=== PATIENT | male | born 1935 | race Caucasian/White ===

== ENCOUNTER 2016-12-05 10:20 | Inpatient (IN) ==
[2016-12-05] MEDS ORDERED: Ipratropium/Albuterol Neb 3 ML IH ONE (10:33)
--- NOTE | 2016-12-05 10:39 | Emergency Department Note ---
Disposition Clinical Impression: Failure of outpatient treatment A-fib Qualifiers: Atrial fibrillation type: unspecified Qualified Code(s): I48.91 - Unspecified atrial fibrillation Pneumonia Qualifiers: Pneumonia type: due to unspecified organism Laterality: bilateral Lung location : lower lobe of lung Qualified Code(s): J18.9 - Pneumonia, unspecified organism Dyspnea Qualifiers: Dyspnea type: unspecified Qualified Code(s): R06.00 - Dyspnea, unspecified Disposition: Admitted As Inpatient Condition: Fair Referrals: El,Moustapha Zuluaga MD [Primary Care Provider] - Forms: ED Satisfaction Letter Time of Disposition: 12:38 SOB HPI - General Chief Complaint: ED Shortness of Breath/Dyspnea Stated Complaint: Pneumonia, sent by Dr Gallegos Time Seen by Provider: 12/05/16 10:33 Source: patient Limitations: no limitations Nursing Notes Reviewed: Yes Vital Signs Reviewed: Yes - History of Present Illness 81-year-old male who comes in with increasing cough and congestion. The patient was treated with antibiotics by Dr. Gallegos without improvement. Patient states this is third visit for this. I did speak to Dr. Gallegos prior to arrival descending him in because of worsening symptoms. Her Gallegos indicated the patient may need admission however the patient states he is not being admitted. Pt Subjective Complaint: shortness of breath, cough Onset (ago): day(s) Context: recent illness Severity: moderate Consistency/Duration: constant Improves with: nothing Worsens with: nothing Known history of: congestive heart failure Associated symptoms: Denies: chest pain Treatment prior to arrival: other (Antibiotics) Cough Description: Involuntary Cough Frequency: Intermittent - Related Data Home Medications Medication Instructions Recorded Confirmed Aspirin 325 mg PO DAILY 02/29/16 12/05/16 Atenolol [Tenormin] 25 mg PO DAILY 02/29/16 12/05/16 Atenolol [Tenormin] 50 mg PO DAILY MDD taking with 25 02/29/16 12/05/16 mg Atorvastatin [Lipitor] 40 mg PO DAILY 02/29/16 12/05/16 Ferrous Sulfate 325 mg PO DAILY 02/29/16 12/05/16 Finasteride [Proscar] 5 mg PO DAILY 02/29/16 12/05/16 Glucosamine HCl/Chondr Lee A Na 1 tab PO BID 02/29/16 12/05/16 [[facility] Glucosamine-Chondr Tablet] Isosorbide MONOnitrate [Isosorbide 120 mg PO DAILY 02/29/16 12/05/16 Mononitrate ER] Levothyroxine [Synthroid] 25 mcg PO DAILY 02/29/16 12/05/16 Metformin HCl [Glucophage] 1,000 mg PO BID 02/29/16 12/05/16 Nitroglycerin [Nitrostat] 0.4 mg SL AD PRN 02/29/16 12/05/16 [place]-3/Dha/Epa/Fish Oil [[facility] Fish 1,000 mg PO BID 02/29/16 12/05/16 Oil 1,000 mg Softgel] Tamsulosin [Flomax] 0.4 mg PO DAILY 02/29/16 12/05/16 Previous Rx's Medication Instructions Recorded Lansoprazole [Prevacid] 30 mg GTUBE QAM capsule. 02/29/16 Allergies Allergy/AdvReac Type Severity Reaction Status Date / Time No Known Allergies Allergy Verified 12/05/16 13:00 Constitutional: Denies: fever, chills, weakness, weight change Eyes: Denies: eye pain, eye discharge, vision change ENT ED: Denies: ear pain, throat pain, dental pain, hearing loss, epistaxis, congestion, dysphagia Cardiovascular: Reports: dyspnea on exertion. Denies: chest pain, palpitations , edema, syncope Respiratory: Reports: cough, dyspnea, wheezes. Denies: hemoptysis, stridor Gastrointestinal: Denies: abdominal pain, nausea, vomiting, diarrhea, constipation, hematemesis, melena, hematochezia Genitourinary: Denies: urgency, dysuria, frequency, hematuria Musculoskeletal: Denies: back pain, neck pain, arthralgia, myalgia Integumentary: Denies: rash, abrasion, lesions Neurological: Denies: headache, weakness, numbness, paresthesias, confusion, abnormal gait, vertigo Psychiatric: Denies: anxiety, depression, suicidal thoughts, homicidal thoughts , auditory hallucinations, visual hallucinations Endocrine: Denies: fatigue Hematological/Lymphatic: Denies: easy bleeding, easy bruising Allergic/Immunologic: Denies: facial swelling, urticaria Past Medical History - Past Medical History Medical history: Reports: cancer, coronary artery disease, diabetes, GERD, hyperlipidemia, hypertension, TIA, other Surgical history: Reports: cholecystectomy, coronary bypass (CABG) Psychiatric history: Reports: no psych history - Social History Smoking Status: Former smoker Smokeless Tobacco Status: No Alcohol use: Reports: none Drug use: Reports: none Physical Exam - General Limitations: no limitations General appearance: alert - Head Head exam: atraumatic, normocephalic, normal inspection - Eye Eye exam: Present: normal appearance, PERRL, EOMI - ENT ENT exam: normal exam, normal oropharynx, mucous membranes moist - Neck Neck exam: Present: normal inspection, full ROM, trachea midline - Chest Chest inspection: Present: normal inspection, symmetric chest wall rise - Respiratory Respiratory exam: Present: wheezes - Cardiovascular Cardiovascular exam: Present: regular rate, normal rhythm, normal heart sounds - Abdominal Exam Abdominal exam: Present: soft, Non-Tender. Absent: tenderness, distention, guarding, rebound, rigidity - Extremities Exam Extremities exam: Present: normal inspection, full ROM. Absent: tenderness, pedal edema - Expanded Lower Extremity Exam Neurovascular/Tendon exam: Absent: motor deficit, sensory deficit, tendon deficit Gait: observed and normal - Back Exam Back exam: Present: normal inspection, full ROM. Absent: tenderness - Neurological Exam Neurological exam: Present: alert, oriented X3 - Psychiatric Psychiatric exam: Present: normal affect, normal mood - Skin Skin exam: Present: warm, dry, intact, normal color Course - Reevaluation(s) Reevaluation #1: 81-year-old comes in complaining of shortness of breath cough. Has been seen by his family doctor 3 times treated with Zithromax without improvement. Today's chest x-ray shows atelectasis versus failure versus pneumonia. This likely represents some CHF. We are going to go ahead and admit. Time: 13:01 - Consultations Consultation #1: Discussed with Dr. Constantino, admit. Time: 12:59 Vital Signs Temperature 97.9 F 12/05/16 10:27 Pulse Rate 83 12/05/16 10:27 Respiratory Rate 20 12/05/16 10:27 Blood Pressure 156/77 12/05/16 10:27 O2 Sat by Pulse Oximetry 96 12/05/16 10:27 Temperature 97.9 F 12/05/16 10:27 Pulse Rate 82 12/05/16 12:35 Respiratory Rate 18 12/05/16 12:35 Blood Pressure 151/81 12/05/16 12:35 O2 Sat by Pulse Oximetry 93 L 12/05/16 12:35 Oxygen Delivery Oxygen Delivery Room Air Shortness of Breath/Dyspnea - Lab Data Lab results reviewed: Yes I reviewed the patient's lab results. Result diagrams: 12/05/16 10:56 12/05/16 10:56 Lab Results 12/05/16 12/05/16 12/05/16 Range/Units 10:56 10:56 10:56 WBC 6.9 (4.3-11.1) K/mcL RBC 4.25 (4.19-5.50) M/mcL Hgb 12.9 (12.9-16.9) g/dL Hct 37.3 L (37.5-50.1) % MCV 87.8 (83.0-100.0) fL MCH 30.4 (28.0-33.3) pg MCHC 34.6 (31.6-35.5) g/dL RDW 13.3 (11.5-14.5) % Plt Count 147 (140-400) K/mcL MPV 10.3 (9.4-12.4) fL Immature Gran % 1.4 (0-4) % Seg Neutrophils % 66.0 % Lymphocytes % 21.6 % Monocytes % 9.6 % Eosinophils % 1.0 % Basophils % 0.4 % Neutrophils # 4.6 (1.6-8.9) K/mcL Lymphocytes # 1.5 (0.6-4.6) K/mcL Monocytes # 0.7 (0.0-1.3) K/mcL Eosinophils # 0.1 (0.0-0.6) K/mcL Basophils # 0.0 (0.0-0.2) K/mcL PT 13.3 H (9.4-12.1) Seconds INR 1.2 APTT 24.3 L (26.0-36.0) Seconds Sodium 139 (136-145) mEq/L Potassium 4.2 (3.5-4.5) mEq/L Chloride 105 (98-109) mEq/L Carbon Dioxide 21 (19-29) mEq/L BUN 16 (8-26) mg/dL Creatinine 1.06 (0.72-1.25) mg/dL Est GFR ( Amer) > 60 (> 60) Est GFR (Non-Af Amer) > 60 (> 60) BUN/Creatinine Ratio 15 (6-26) Glucose 208 H (70-99) mg/dL Calculated Osmolality 295 (280-300) Lactic Acid (0.5-2.2) mmol/L Calcium 9.4 (8.6-10.8) mg/dL Troponin I (0-0.03) ng/mL B-Natriuretic Peptide (0-100) pg/mL 12/05/16 12/05/16 12/05/16 Range/Units 10:56 10:56 10:56 WBC (4.3-11.1) K/mcL RBC (4.19-5.50) M/mcL Hgb (12.9-16.9) g/dL Hct (37.5-50.1) % MCV (83.0-100.0) fL MCH (28.0-33.3) pg MCHC (31.6-35.5) g/dL RDW (11.5-14.5) % Plt Count (140-400) K/mcL MPV (9.4-12.4) fL Immature Gran % (0-4) % Seg Neutrophils % % Lymphocytes % % Monocytes % % Eosinophils % % Basophils % % Neutrophils # (1.6-8.9) K/mcL Lymphocytes # (0.6-4.6) K/mcL Monocytes # (0.0-1.3) K/mcL Eosinophils # (0.0-0.6) K/mcL Basophils # (0.0-0.2) K/mcL PT (9.4-12.1) Seconds INR APTT (26.0-36.0) Seconds Sodium (136-145) mEq/L Potassium (3.5-4.5) mEq/L Chloride (98-109) mEq/L Carbon Dioxide (19-29) mEq/L BUN (8-26) mg/dL Creatinine (0.72-1.25) mg/dL Est GFR ( Amer) (> 60) Est GFR (Non-Af Amer) (> 60) BUN/Creatinine Ratio (6-26) Glucose (70-99) mg/dL Calculated Osmolality (280-300) Lactic Acid 1.0 (0.5-2.2) mmol/L Calcium (8.6-10.8) mg/dL Troponin I 0.01 (0-0.03) ng/mL B-Natriuretic Peptide 137 H (0-100) pg/mL - Radiology Data Radiology results reviewed: Yes I reviewed the patient's radiology results. Chest X-Ray 12/05/16 10:33 IMPRESSION: Patchy opacities in lung bases bilaterally, which could reflect atelectasis, resolving or early pneumonia. Recommend a short-term follow-up to ensure resolution. D/ / Jo Whaley MD / Jo Whaley MD Interpreting Provider: Jo Whaley MD - EKG Data EKG attestation: Yes I reviewed and interpreted this EKG. Rate: Reports: normal Rhythm: Reports: A.Fib Interpretation: Reports: other (New A. fib)
[2016-12-05 11:05] LABS: Basophils % 0.4 %; Eosinophils # 0.1 K/mcL (0.0-0.6); Hematocrit 37.3 % (37.5-50.1); Hemoglobin 12.9 g/dL (12.9-16.9); Immature Granulocytes % 1.4 % (0-4); Lymphocytes # 1.5 K/mcL (0.6-4.6); Lymphocytes % 21.6 %; Mean Corpuscular HGB Conc 34.6 g/dL (31.6-35.5); Mean Corpuscular Hemoglobin 30.4 pg (28.0-33.3); Mean Corpuscular Volume 87.8 fL (83.0-100.0); Mean Platelet Volume 10.3 fL (9.4-12.4); Monocytes # 0.7 K/mcL (0.0-1.3); Monocytes % 9.6 %; Neutrophils # 4.6 K/mcL (1.6-8.9); Platelet Count 147 K/mcL (140-400); Red Blood Count 4.25 M/mcL (4.19-5.50); Red Cell Distribution Width 13.3 % (11.5-14.5)
[2016-12-05 11:09] LABS: INR 1.2; Prothrombin Time 13.3 Seconds (9.4-12.1)
[2016-12-05 11:12] LABS: Activated Partial Thrombo Time 24.3 Seconds (26.0-36.0)
[2016-12-05 11:34] LABS: BUN/Creatinine Ratio 15 (6-26); Blood Urea Nitrogen 16 mg/dL (8-26); Calcium 9.4 mg/dL (8.6-10.8); Carbon Dioxide 21 mEq/L (19-29); Chloride 105 mEq/L (98-109); Glucose 208 mg/dL (70-99); Osmolality,Calculated 295 (280-300); Potassium 4.2 mEq/L (3.5-4.5); Sodium 139 mEq/L (136-145); eGFR For African Americans > 60 (> 60); eGFR For Non-African Americans > 60 (> 60)
[2016-12-05] MEDS ORDERED: Levofloxacin 750 MG/150 ML 750 MG/150 ML BAG IVPB ONE (12:32)
[2016-12-05] MEDS ORDERED: Ibuprofen 400 MG TABLET PO PRN (13:31)
[2016-12-05] MEDS ORDERED: Naloxone 0.4 MG/ML INJ IVP PRN (13:31)
[2016-12-05] MEDS ORDERED: D5% in Water 1,000 ML IV PRN (13:35)
[2016-12-05] MEDS ORDERED: Nitroglycerin 0.4 MG TAB.SUBL SL PRN (13:35)
[2016-12-05] MEDS ORDERED: *HR* Dextrose 50 % in Water (Syg) 50 ML SYRINGE IVP PRN (13:35)
[2016-12-05] MEDS ORDERED: Dextrose Gel 15 GM PO PRN ×2 (13:35)
--- NOTE | 2016-12-05 13:56 | Internal Med History&Physical ---
Date of Encounter: 12/05/16 Time of Encounter: 13:48 Assessment and Plan (1) Pneumonia Current visit: Yes Status: Acute Patient with productive cough and shortness of breath, worse at night. He reports he's had three rounds of antibiotics through his PCP without relief of his symptoms. CXR showed Patchy opacities in lung bases bilaterally. Chest CT shows multiple new patchy infiltrates within both lower lobes and to lesser extent within both upper lobes, most likely represent either multifocal pneumonia or inflammatory process. Levaquin IVPB initiated by ED. Continue Levaquin. Duoneb treatments QIDR. Qualifiers: Pneumonia type: due to unspecified organism Laterality: bilateral Lung location: lower lobe of lung Qualified Code(s): J18.9 - Pneumonia, unspecified organism (2) A-fib Current visit: Yes Status: Acute Patient's EKG showed Atrial fibrillation. 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 Review of records shows Holter monitor from 12/2015 which showed primarily sinus rhythm with some PVCs and atrial ectopy, but no atrial fibrillation. Rate is controlled in the 80s, patient is on atenolol already. Weight based Lovenox SQ BID. Consult to Cardiology Qualifiers: Atrial fibrillation type: paroxysmal Qualified Code(s): I48.0 - Paroxysmal atrial fibrillation (3) Congestive heart failure Current visit: Yes Status: Acute Differential for patient's cough and dyspnea includes new Congestive heart failure given his new Atrial fibrillation. BNP elevated at 137, with no baseline for comparison. CT chest ordered to further clarify whether patient has pulmonary vascular congestion, pulmonary edema vs. pneumonia. No recent echocardiogram on record. Plan for echocardiogram tomorrow. Qualifiers: Congestive heart failure type: unspecified congestive heart failure type Congestive heart failure chronicity: unspecified congestive heart failure chronicity Qualified Code(s): I50.9 - Heart failure, unspecified (4) DVT prophylaxis Current visit: Yes Status: Acute Encourage ambulation anti-embolic stockings Weight-based lovenox ordered for new Afib. Internal Medicine - H&P: HPI Chief complaint: shortness of breath Admitted From: Emergency Dept Plans for Post Hospital Care: Home History of present illness: Mr. 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 He reports he has had a cough since October and has had 3 rounds of antibiotics through his PCP without resolution of his symptoms. He reports his cough is productive of yellow sputum, is worse over night, with shortness of breath that is also worse overnight. It is accompanied by nasal congestion and wheezing, as well as chills and sweats on and off. He denies any chest pain, palpitations, pain with breathing, headaches, lower extremity swelling, nausea, vomiting or abdominal pain. Evaluation in the ED was significant for EKG which showed atrial fibrillation, CXR which showed patchy opacities in lung bases bilaterally, elevated BNP to 137. Troponin was negative at 0.01, WBC count was normal at 6.9. Patient's heart rate was in the 80s-low 90s, he was afebrile with temperature of 97.9. On exam, patient is alert and oriented, in no distress. Lungs have faint bilateral expiratory wheezes, Heart has irrelular rhythm with drew. Past Med Surg Social Fam HX - Past Medical History Medical history: cancer (colon cancer 2006), coronary artery disease, diabetes, GERD, hyperlipidemia, hypertension, TIA, other (WPW) Psychiatric history: no psych history - Past Surgical History Surgical History: cancer surgery (partial colectomy), cholecystectomy, coronary bypass (CABG), orthopedic, other (neck fusion) - Social History Smoking Status: Former smoker Smokeless Tobacco Status: No Alcohol use: none Drug use: none - Family History Mother Living Status: Hx Family Endocrine Disorder: Yes (diabetes) Father Living Status: Hx Family Cardiac Disorders: Yes Hx Family Endocrine Disorder: Yes (diabetes) Internal Medicine - H&P: Meds Aspirin 325 mg PO DAILY 02/29/16 [History] Atenolol [Tenormin] 25 mg PO DAILY 02/29/16 [History] Atenolol [Tenormin] 50 mg PO DAILY MDD taking with 25 mg 02/29/16 [History] Atorvastatin [Lipitor] 40 mg PO DAILY 02/29/16 [History] Ferrous Sulfate 325 mg PO DAILY 02/29/16 [History] Finasteride [Proscar] 5 mg PO DAILY 02/29/16 [History] Glucosamine HCl/Chondr Lee A Na [[facility] Glucosamine-Chondr Tablet] 1 tab PO BID 01/11 [History] Isosorbide MONOnitrate [Isosorbide Mononitrate ER] 120 mg PO DAILY 02/29/16 [ History] Lansoprazole [Prevacid] 30 mg GTUBE QAM capsule. 02/29/16 [Rx] Levothyroxine [Synthroid] 25 mcg PO DAILY 02/29/16 [History] Metformin HCl [Glucophage] 1,000 mg PO BID 02/29/16 [History] Nitroglycerin [Nitrostat] 0.4 mg SL AD PRN 02/29/16 [History] [place]-3/Dha/Epa/Fish Oil [[facility] Fish Oil 1,000 mg Softgel] 1,000 mg PO BID [History] Tamsulosin [Flomax] 0.4 mg PO DAILY 02/29/16 [History] Allergies No Known Allergies Allergy (Verified 12/05/16 13:00) All Systems PM: A 10-system review of systems was performed and is negative for pertinent findings except as documented above in the HPI. - Constitutional Constitutional: chills, night sweats, no fever(s) - EENT Eyes: no change in vision, no discharge, no pain, no photophobia Ears: no ear discharge, no ear pain, no tinnitus Nose, mouth and throat: no dysphagia, no nasal discharge, no neck pain, no sore throat - Cardiovascular Cardiovascular ROS IM: dyspnea, paroxysmal nocturnal dyspnea, no chest pain, no diaphoresis, no lightheadedness, no palpitations, no syncope - Respiratory Respiratory: cough, dyspnea, wheezing, chest congestion, change in phlegm color , no pain on inspiration, no excessive phlegm production, no pain with cough - Gastrointestinal Gastrointestinal: no abdominal pain, no diarrhea, no hematemesis, no hematochezia, no melena, no nausea, no vomiting - Musculoskeletal Musculoskeletal ROS IM: numbness (chronic in bilateral feet), tingling (chronic in bilateral feet) - Integumentary Integumentary IM: no rash, no unusual bruising - Neurological Neurological ROS: numbness (chronic in bilateral feet), tingling (chronic bilateral feet), no confusion, no convulsions, no focal weakness, no tremor(s) - Hematologic/Lymphatic Hematologic/Lymphatic: no easy bruising - Constitutional Vitals: Temp Pulse Resp BP Pulse Ox 97.9 F 82 18 151/81 93 L 12/05/16 10:27 12/05/16 12:35 12/05/16 12:35 12/05/16 12:35 12/05/16 12:35 General appearance: Present: A&O X 3, pleasant, obese, answers questions appropriately - Head Head exam: Present: atraumatic, normocephalic - Eye Eye exam: Present: PERRL, conjuntiva pink, sclera anicteric Pupils: Present: PERRL - Neck Neck exam general surgery: Present: supple, trachea midline. Absent: lymphadenopathy - Respiratory Respiratory exam: Present: wheezes (bilateral expiratory). Absent: accessory muscle use, rales, rhonchi - Cardiovascular Cardiovascular exam: Present: gallop, irregular rhythm, +S1, +S2. Absent: diastolic murmur, rubs, systolic murmur - GI/Abdominal GI/Abdominal exam: Present: normal bowel sounds, soft, no peritoneal signs. Absent: distended, tenderness - Extremities Exam Extremities exam: Present: warm, radial pulses palpable and symetrical. Absent : calf tenderness, cyanotic, pedal edema - Neurological Exam Neurological exam: Present: CN II-XII intact, oriented X3, no focal deficits. Absent: facial droop, speech deficit - Skin Skin exam: Present: dry, intact Internal Med - H&P Results - Labs CBC & Chem 7: 12/05/16 10:56 12/05/16 10:56 Labs: Short CBC 12/05/16 Range/Units 10:56 WBC 6.9 (4.3-11.1) K/mcL Hgb 12.9 (12.9-16.9) g/dL Hct 37.3 L (37.5-50.1) % Plt Count 147 (140-400) K/mcL Neutrophils # 4.6 (1.6-8.9) K/mcL BMP 12/05/16 10:56 Sodium 139 Potassium 4.2 Chloride 105 Carbon Dioxide 21 BUN 16 Creatinine 1.06 Glucose 208 H Calcium 9.4 Cardiac Enzymes 12/05/16 Range/Units 10:56 Troponin I 0.01 (0-0.03) ng/mL - Impressions ITS Impressions Chest X-Ray 12/05/16 10:33 IMPRESSION: Patchy opacities in lung bases bilaterally, which could reflect atelectasis, resolving or early pneumonia. Recommend a short-term follow-up to ensure resolution. D/ / Jo Whaley MD / Jo Whaley MD Interpreting Provider: Jo Whaley MD
--- NOTE | 2016-12-05 16:26 | Cardiology Consult Note ---
Date of Encounter: 12/05/16 Time of Encounter: 16:00 Assessment and Plan (1) Pneumonia Current Visit: Yes Status: Acute Per cardiology: -Patient with cough and congestion for 1 month. Patient was being treated by PCP in outpatient setting. - CXR showed Patchy opacities in lung bases bilaterally. -Chest CT shows multiple new patchy infiltrates within both lower lobes and to lesser extent within both upper lobes, most likely represent either multifocal pneumonia or inflammatory process. -No evidence of CHF. BNP mildly elevated. Clinically appears euvolemic on exam. -Management per primary service. Patient currently on antibiotics and nebulizers. -Suspect contributing factor to atrial fibrillation. Qualifiers: Pneumonia type: due to unspecified organism Laterality: bilateral Lung location: lower lobe of lung Qualified Code(s): J18.9 - Pneumonia, unspecified organism (2) A-fib Current Visit: Yes Status: Acute Per cardiology: -Noted to have atrial fibrillation per EKG. Patient states he is unsure of any history of atrial fibrillation. Patient does have histroy of WPW. Patient is currently rate controlled with heart rate in the 80s. Currently on atenolol. -Patient is currently on lovenox 110mg every 12 hours. -CHadsVasc 7. Discussed with patient need for long term care phlebotomist anticoagulation. Patient states he had previously been on coumadin, but it was stopped due to hematuria (Patient states this was years ago). Patient denies any active bleeding of blood loss. Patient denies any recent history of falls. -Continue lovenox. Will determine long term care phlebotomist anticoagulation after assessing for any bleeding/blood loss on lovenox. -Continue atenolol. -Echocardiogram ordered and will make further recommendations based on echocardiogram results. Will check magnesium and TSH. Qualifiers: Atrial fibrillation type: paroxysmal Qualified Code(s): I48.0 - Paroxysmal atrial fibrillation Discussion w patient/family: The assessment and plan as outlined above was discussed with the patient who expressed understanding and agreement. All questions were answered. Thank you for involving us in the care of your patient. Please call with any questions. Discussed and reviewed with Dr.John Oseguera. History of Present Illness Consult date: 12/05/16 Requesting physician: Vonnie Orantes Consult reason: a.fib, suspected CHF Chief complaint: cold like symptoms. History of present illness: Mr. Altamirano is a 81 year old male who presented to his primary care physicians office for follow up of cold-like symptoms. Patient states he has had cough and congestion for over a month. His PCP obtained a chest x-ray and sent him to ER for possible pneumonia. ECG obtained and patient noted to be in atrial fibrillation. Patient is asymptomatic with atrial fibrillation. Past Med Surg Social Fam HX - Past Medical History Medical history: cancer, coronary artery disease, diabetes, GERD, hyperlipidemia , hypertension, TIA, other Psychiatric history: no psych history - Past Surgical History Surgical History: cancer surgery, cholecystectomy, coronary bypass (CABG), orthopedic, other - Social History Smoking Status: Former smoker Smokeless Tobacco Status: No Alcohol use: none Drug use: none - Family History Mother Living Status: Cause of : diabetis Hx Family Endocrine Disorder: Yes (diabetes) Father Name: kali Living Status: Age at : 80 Cause of : heart Hx Family Cardiac Disorders: Yes Hx Family Endocrine Disorder: Yes (diabetes) Medications and Allergies Aspirin 325 mg PO DAILY 02/29/16 [History] Atenolol [Tenormin] 25 mg PO DAILY 02/29/16 [History] Atenolol [Tenormin] 50 mg PO DAILY MDD taking with 25 mg 02/29/16 [History] Atorvastatin [Lipitor] 40 mg PO DAILY 02/29/16 [History] Ferrous Sulfate 325 mg PO DAILY 02/29/16 [History] Finasteride [Proscar] 5 mg PO DAILY 02/29/16 [History] Glucosamine HCl/Chondr Lee A Na [[facility] Glucosamine-Chondr Tablet] 1 tab PO BID 01/11 [History] Isosorbide MONOnitrate [Isosorbide Mononitrate ER] 120 mg PO DAILY 02/29/16 [ History] Lansoprazole [Prevacid] 30 mg GTUBE QAM capsule. 02/29/16 [Rx] Levothyroxine [Synthroid] 25 mcg PO DAILY 02/29/16 [History] Metformin HCl [Glucophage] 1,000 mg PO BID 02/29/16 [History] Nitroglycerin [Nitrostat] 0.4 mg SL AD PRN 02/29/16 [History] [place]-3/Dha/Epa/Fish Oil [[facility] Fish Oil 1,000 mg Softgel] 1,000 mg PO BID [History] Tamsulosin [Flomax] 0.4 mg PO DAILY 02/29/16 [History] Allergies No Known Allergies Allergy (Verified 12/05/16 13:00) All Systems Review: A 10-system review of systems was performed and is negative for pertinent findings except as documented above in the HPI. - Cardiovascular Cardiovascular: dyspnea on exertion - Respiratory Respiratory: cough, dyspnea Physical Examination Vital Signs, Last 4 Hours Temp Pulse Resp BP Pulse Ox 12/05/16 15:42 97.6 F 77 16 151/87 97 12/05/16 15:19 18 161/90 12/05/16 14:59 81 18 161/90 95 12/05/16 14:05 81 18 151/81 95 General: Conversant, No Apparent Distress HEENT: Atraumatic, Normocephaly Neck: No JVD Cardiac: Other (irregularly irregular. ) Lungs: Other (Crackles noted to bilateral lung bases) Neuro: Alert and responsive, No focal deficits noted Abdomen: Soft, Non-Tender Skin: No rashes noted on visualized skin Extremities: No Clubbing, No Cyanosis, No Edema, Normal Pulses Results 12/05/16 10:56 12/05/16 10:56 - Imaging and Cardiology Chest Xray: report reviewed Echo: pending Other Results: CT chest report reviewed. - EKG Interpretation EKG results cardiology: other (ECG reviewed and noted to be atrial fibrillation. Rate controlled with heart rate in the 80s.) Consult Discharge Plan - Plan Referrals: Moustapha Gallegos MD [Primary Care Provider] -
[2016-12-05] MEDS ORDERED: Ipratropium/Albuterol Neb 3 ML ONE (17:00)
[2016-12-05] MEDS: Ipratropium/Albuterol Neb 3 ML IH SCH ×4 (17:04→22:44)
[2016-12-05] MEDS: *HR* Enoxaparin 120 MG/0.8 ML SYRINGE SQ SCH (18:08)
[2016-12-05] MEDS: Insulin LISPRO 300 UNITS/3 ML VIAL SQ SCH ×2 (18:08→21:28)
[2016-12-05] MEDS: Aspirin 325 MG TABLET PO SCH (18:08)
[2016-12-05] MEDS ORDERED: *HR* Heparin 5,000 UNIT/ML VIAL SQ SCH (19:00)
--- NOTE | 2016-12-05 19:50 | Electrocardiograph Report ---
[facility] Test Date: 2016-12-05 Pat Name: Anselmo Altamirano Department: 103 Room: 2NE26 Gender: M [employer]: : 1935 Requested By: Chester Christine Order Number: [id number] Reading MD: Anthony Gonzales DO Measurements Intervals [place] Rate: 75 P: RI: 0 QRS: -5 QRSD: 103 T: 88 QT: 389 QTc: 418 Interpretive Statements ATRIAL FIBRILLATION NONSPECIFIC ST \T\ T-WAVE ABNORMALITY ABNORMAL RHYTHM ECG Electronically Signed On 12-05-2016 19:48:53 EST by Anthony Gonzales DO
[2016-12-05] MEDS: EPA PO SCH (20:07)
[2016-12-05] MEDS: FISH OIL PO SCH (20:07)
[2016-12-05] MEDS: OMEGA PO SCH (20:07)
[2016-12-05] MEDS: DHA PO SCH (20:07)
[2016-12-06 03:59] LABS: Hematocrit 34.7 % (37.5-50.1); Hemoglobin 11.8 g/dL (12.9-16.9); Mean Corpuscular Hemoglobin 29.7 pg (28.0-33.3); Mean Corpuscular Volume 87.4 fL (83.0-100.0); Mean Platelet Volume 10.4 fL (9.4-12.4); Platelet Count 156 K/mcL (140-400); Red Blood Count 3.97 M/mcL (4.19-5.50); Red Cell Distribution Width 13.2 % (11.5-14.5)
[2016-12-06 04:24] LABS: BUN/Creatinine Ratio 18 (6-26); Blood Urea Nitrogen 16 mg/dL (8-26); Calcium 8.9 mg/dL (8.6-10.8); Carbon Dioxide 19 mEq/L (19-29); Chloride 108 mEq/L (98-109); Glucose 216 mg/dL (70-99); Osmolality,Calculated 296 (280-300); Potassium 3.9 mEq/L (3.5-4.5); Sodium 139 mEq/L (136-145); eGFR For African Americans > 60 (> 60); eGFR For Non-African Americans > 60 (> 60)
[2016-12-06] MEDS: Ipratropium/Albuterol Neb 3 ML IH SCH ×8 (04:31→22:09)
[2016-12-06 04:42] LABS: Eosinophils # 0.1 K/mcL (0.0-0.6); Lymphocytes # 1.3 K/mcL (0.6-4.6); Monocytes # 0.4 K/mcL (0.0-1.3); Neutrophils # 3.5 K/mcL (1.6-8.9); Platelet Estimate Normal (Normal)
[2016-12-06] MEDS: Levothyroxine 25 MCG TABLET PO SCH (04:54)
[2016-12-06] MEDS: *HR* Enoxaparin 120 MG/0.8 ML SYRINGE SQ SCH ×2 (04:54→17:55)
[2016-12-06] MEDS ORDERED: Perflutren Lipid Microsphere 1.3 ML in 0.9 % Sodium Chloride 8.7 ML IVP ONE (08:46)
[2016-12-06 09:14] LABS: Magnesium 1.6 mg/dL (1.6-2.6)
--- NOTE | 2016-12-06 09:15 | Internal Med Progress Note ---
<Dell Hamilton - Last Filed: 12/06/16 14:34> Date of Encounter: 12/06/16 Time of Encounter: 07:15 - Assessment and plan (1) Pneumonia Current Visit: Yes Status: Acute Assessment and plan: 12/06/15 -PMH colon cancer. No history of COPD. -Three rounds of Abx (Z-pack) through his PCP without resolution of symptoms. -CT: Patchy infiltrates either multifocal pneumonia or inflammatory process. -BNP less than 200. Rheumatoid factor 0. -QTc<500, consider repeat EKG prior to discharge. Levaquin and prolonged QT syndrome. -Patient has no previous hospitalizations, doesnt live in a shelter, no recent surgeries. Will treat for CAP Plan -Continue Levaquin. QT<500 -Obtain sputum culture if able -Patient has codeine cough suryp prn -Estimated hospital stay <48 hours. Qualifiers: Pneumonia type: due to unspecified organism Laterality: bilateral Lung location: lower lobe of lung Qualified Code(s): J18.9 - Pneumonia, unspecified organism (2) A-fib Current Visit: Yes Status: Acute Assessment and plan: 12/06/16 -Extensive cardiac PMH, DM, and WPW. Not afib. Previously on Coumadin, stop because he developed hematuria years ago. -Heart rate in the 80s. Currently on atenolol. Patient on Lovenox 110 mg every 12 hours. -EKG showed atrial fibrillation. Echocardiogram: LVEF 50-55%, mild concentric left ventricular hypertrophy, mild regurg...see report. -Per cardio, eliquis too expensive. Patient agree to use Coumadin. Cardio signed off and follow as outpatient. Plan -Monitor Mg, -Consider stopping imdur -Coumadin started -Monitor INR, Coags, Qualifiers: Atrial fibrillation type: paroxysmal Qualified Code(s): I48.0 - Paroxysmal atrial fibrillation (3) DVT prophylaxis Current Visit: Yes Status: Acute Assessment and plan: -Lovenox. Coumadin started. (4) Failure of outpatient treatment Current Visit: Yes Status: Acute Assessment and plan: -PCP to 3 rounds Zpack, with no relief. - Subjective Interval history: Past medical history of colon cancer status post colectomy in 2006, Valentine- Parkinson-White. c/c: Worsening cough and shortness of breath. Patient is sitting up in the chair. Comfortable. Admits to a nonproductive cough. Denies chest pain, palpitations, shortness of breath, nausea, vomiting, diarrhea, fever. Has no complaints or concerns at this time. - Constitutional Vitals: Temp Pulse Resp BP Pulse Ox 97.7 F 77 16 159/79 99 12/06/16 07:03 12/06/16 07:03 12/06/16 07:03 12/06/16 07:03 12/06/16 07:03 General appearance: Present: A&O X 3, pleasant, obese, answers questions appropriately - Head Head exam: Present: atraumatic, normocephalic - Eye Eye exam: Present: PERRL, conjuntiva pink, sclera anicteric Pupils: Present: PERRL - Neck Neck exam general surgery: Present: supple, trachea midline. Absent: lymphadenopathy - Respiratory Respiratory exam: Present: rhonchi. Absent: accessory muscle use, chest wall tenderness, respiratory distress, wheezes - Cardiovascular Cardiovascular exam: Present: irregular rhythm, +S1, +S2. Absent: diastolic murmur, gallop, rubs, systolic murmur - GI/Abdominal GI/Abdominal exam: Present: normal bowel sounds, soft, no peritoneal signs. Absent: distended, tenderness - Extremities Exam Extremities exam: Present: warm, radial pulses palpable and symetrical. Absent : calf tenderness, cyanotic, pedal edema - Neurological Exam Neurological exam: Present: CN II-XII intact, oriented X3, no focal deficits. Absent: pronater drift, facial droop, speech deficit - Skin Skin exam: Present: dry, intact Internal Medicine: Result - Labs CBC & Chem 7: 12/06/16 03:38 12/06/16 03:38 Labs: Short CBC 12/06/16 Range/Units 03:38 WBC 5.3 (4.3-11.1) K/mcL Hgb 11.8 L (12.9-16.9) g/dL Hct 34.7 L (37.5-50.1) % Plt Count 156 (140-400) K/mcL Neutrophils # 3.5 (1.6-8.9) K/mcL BMP 12/06/16 03:38 Sodium 139 Potassium 3.9 Chloride 108 Carbon Dioxide 19 BUN 16 Creatinine 0.87 Glucose 216 H Calcium 8.9 - ABG Interpretation ABG results: PT/INR, D-dimer PT 13.3 Seconds (9.4-12.1) H 12/05/16 10:56 Consult Discharge Plan - Plan Referrals: Moustapha Gallegos MD [Primary Care Provider] - 12/27/16 8:30 am Senthil Mack CNP [Advanced Practice Nurse] - 12/27/16 8:30 am <Yaya Arias P - Last Filed: 12/06/16 16:47> Date of Encounter: 12/06/16 - Constitutional Vitals: Temp Pulse Resp BP Pulse Ox 97.6 F 80 16 144/77 96 12/06/16 11:04 12/06/16 11:04 12/06/16 11:04 12/06/16 11:04 12/06/16 11:04 Internal Medicine: Result - Labs CBC & Chem 7: 12/06/16 03:38 12/06/16 03:38 - ABG Interpretation ABG results: PT/INR, D-dimer PT 13.3 Seconds (9.4-12.1) H 12/05/16 10:56 - Attending Attestation I examined this patient and my medical decision-making was reviewed with the EDUCATION RESEARCH ANALYST/PA/Advanced Practice Nurse/Resident Physician. I agree with the documented findings, disposition and treatment plan as described except to the extent set forth below.
[2016-12-06] MEDS: Levofloxacin 750 MG/150 ML 750 MG/150 ML BAG IVPB SCH (09:59)
[2016-12-06] MEDS: Aspirin 325 MG TABLET PO SCH (09:59)
[2016-12-06] MEDS: Isosorbide MONOnitrate (24 HR) 60 MG TAB.ER.24H PO SCH (10:00)
[2016-12-06] MEDS: Insulin LISPRO 300 UNITS/3 ML VIAL SQ SCH ×4 (10:00→22:50)
[2016-12-06] MEDS: DHA PO SCH ×2 (10:01→20:25)
[2016-12-06] MEDS: Finasteride 5 MG TABLET PO SCH (10:01)
[2016-12-06] MEDS: EPA PO SCH ×2 (10:01→20:25)
[2016-12-06] MEDS: OMEGA PO SCH ×2 (10:01→20:25)
[2016-12-06] MEDS: FISH OIL PO SCH ×2 (10:01→20:25)
--- NOTE | 2016-12-06 10:02 | ECHO - Doppler Report ---
Echo with Imaging Enhancement Agent Name: Anselmo Altamirano Date of Study: 12/06/2016 Date: 1935 Ht: 72.0 in Medical Record#: [id number] Age: 81 Wt: 222.0 lb Gender: Male BSA: 2.23 Order #: [id number] Location: [facility] Room #: [id number] Reading Physician: Kvng Ann DO, FACC, MOSHE MAJANO Milling Machinist: Azalea Hardy RVT, RDCS Ordering Physician: Esther Villeda CNP Primary Physician: Moustapha Gallegos MD Indications: Atrial fibrillation, Coronary artery disease Impressions: LVEF 50-55%. Normal LV chamber size and function. Mild concentric left ventricular hypertrophy. Atypical septal motion consistent with post-operative status. Indeterminate diastolic function. Grossly normal right ventricular structure and function. Mild tricuspid regurgitation. Mild pulmonary hypertension. Estimated RVSP is 36 mmHg. Left Ventricular Wall Motion: Rest Echo Findings All wall segments showed normal motion. Findings: Study Quality * Technically adequate exam. ECG Findings * Atrial fibrillation. Left Ventricle * LVEF 50-55%. * Normal LV chamber size and function. * Mild concentric left ventricular hypertrophy. * Atypical septal motion consistent with post-operative status. * Indeterminate diastolic function. Right Ventricle * Grossly normal right ventricular structure and function. Left Atrium * Moderately dilated left atrium. Right Atrium * Mildly dilated right atrium. Interatrial Septum * Interatrial septum not well evaluated. Aortic Valve * Trileaflet aortic valve. * Focal calcification of the noncoronary cusp. * Trace aortic regurgitation. * No aortic stenosis. Mitral Valve * Mild mitral annular calcification * No mitral regurgitation. * No mitral stenosis. Tricuspid Valve * Normal tricuspid valve structure. * Mild tricuspid regurgitation. * Mild pulmonary hypertension. * Estimated RVSP is 36 mmHg. * Estimated RA pressure is 5 mmHg. Pulmonic Valve * Pulmonic valve not well visualized. * No pulmonic regurgitation. Aorta * Normally sized aortic root. Pericardium * The pericardium appears normal. IVC * Normal IVC dimensions and inspiratory collapse. Pulmonary Artery * Normal visualized portions of the main pulmonary artery. History Hypertension Diabetes Hypercholesteremia Family History of CAD History of CAD/PTCA Coronary Artery Bypass Graft 2011 a Previous Echo was performed. Contrast: Definity 1.3 ml in 8.7 ml of saline 2 ml. Measurements: BP: 153/ 79 2D Normal Values RVIDd: 2.80 cm <2.7 cm IVSd: 1.30 cm 0.6 - 1.0 cm LVIDd: 4.20 cm 3.7 - 5.6 cm LVPWd: 1.30 cm 0.6 - 1.1 cm LVIDs: 2.70 cm 1.5 - 3.6 cm AO: 2.70 cm < 4.0 cm LA: 4.40 cm 2.0 - 4.0cm %FS: 35.70 cm >25 % LA volume: 70 Mitral Valve Peak E:1.20 m/sec Peak A:.30 m/sec E/A Ratio:4.1 Aortic Valve AI pressure Half-time: 825.00 msec Tricuspid Valve TV Regurg Peak Grad: 31.00mmHg TV Regurg Peak Butch: 2.79m/sec Updated by Kvng Ann DO, FACC, GRETEL, MOSHE on 12/06/2016 9:55:22 AM electronically signed on 12/06/2016 9:55:57 AM with status of Final Wall Motion Ortiz: 1=Normal, 2=Hypokinesis, 3=Akinesis, 4=Dyskinesis, 5=Aneurysmal, 6=Hyperkinetic, X=Not Visualized (Blank)=Missing
[2016-12-06] MEDS ORDERED: Magnesium Sulfate 2 GM in D5% in Water 100 ML IVPB ONE (10:18)
--- NOTE | 2016-12-06 10:53 | Cardiology Progress Note ---
Date of Encounter: 12/06/16 Time of Encounter: 10:00 Assessment and Plan (1) Pneumonia Current Visit: Yes Status: Acute Per cardiology: -Patient with productive cough and congestion for one months. Patient states he has been following with his PCP with worsening of symptoms. -CXR showed Patchy opacities in lung bases bilaterally. -Chest CT shows multiple new patchy infiltrates within both lower lobes and to lesser extent within both upper lobes, most likely represent either multifocal pneumonia or infiltrates. -Current regimen per primary service. -Currently on antibiotics and nebulizer treatments. -Consider pneumonia contributing factor to atrial fibrillation. Qualifiers: Pneumonia type: due to unspecified organism Laterality: bilateral Lung location: lower lobe of lung Qualified Code(s): J18.9 - Pneumonia, unspecified organism (2) A-fib Current Visit: Yes Status: Acute Per cardiology: -Atrial fibrillation noted on ECG. Patient asymptomatic. Denies chest pain or palpitations. Patient is rate controlled with average heart rate 72. Patient with a history of SVT and WPW. Pneumonia likely contributing factor to atrial fibrillation. -Patient had previously been on coumadin for DVT. Patient states he was taken off of coumadin years ago due to hematuria. Patient denies any active bleeding of blood loss. Discussed at length regarding snf, anticoagulation. Patient wishes to try eliquis, but is concerned regarding cost. Creatinine clearance 98. -Echocardiogram reviewed from 12/06/16 which showed LVEF 50-55%, mild cocentric left ventricular hypertrophy, atypical septal motion consistent with post- operative status, indeterminate diastolic dysfuction, grossly normal right ventricular structure and fuction, mild tricuspid regugitation. Magnesium 1.5 on 12/05/16, magnesium 1.6 on 12/06/16. -Continue beta patrice. -[place]offett check sent to pharmacy for eliquis 5mg PO BID. Will discuss pricing with patient to determine its affordability once pricing available. -Magnesium rider ordered. - Qualifiers: Atrial fibrillation type: paroxysmal Qualified Code(s): I48.0 - Paroxysmal atrial fibrillation (3) Hypomagnesemia Current Visit: Yes Status: Acute Per cardiology: -Magnesiuim on 12/05/16 noted to be 1.5. Magnesium 12/06/16 1.6. -Possibly due to patient's current illness and decreased oral intake. -Magnesium rider ordered. Discussion w patient/family: The assessment and plan as outlined above was discussed with the patient who expressed understanding and agreement. All questions were answered. Thank you for involving us in the care of your patient. Please call with any questions. Discussed and reviewed with Dr.John Oseguera. Subjective Principal diagnosis: pneumonia, atrial fibrillation Objective Vital Signs, Last 4 Hours Temp Pulse Resp BP Pulse Ox 12/06/16 07:03 97.7 F 77 16 159/79 99 General: Conversant, No Apparent Distress HEENT: Atraumatic, Normocephaly, Mucus Membranes Moist Neck: No JVD Cardiac: Other (irregularly irregular) Lungs: Other (left lower lobe crackles noted. ) Neuro: Alert and responsive, No focal deficits noted Abdomen: Soft, Non-Tender Skin: No rashes noted on visualized skin Musculoskeletal: No Chest Wall Tenderness Extremities: No Clubbing, No Cyanosis, No Edema, Normal Pulses Results 12/06/16 03:38 12/06/16 03:38 Lab Results 12/06/16 12/06/16 03:38 03:38 WBC 5.3 Hgb 11.8 L Hct 34.7 L Plt Count 156 Sodium 139 Potassium 3.9 Chloride 108 Carbon Dioxide 19 BUN 16 Creatinine 0.87 Glucose 216 H Calcium 8.9 Magnesium 1.6 - Imaging and Cardiology Chest Xray: report reviewed Echo: report reviewed - EKG Interpretation EKG results cardiology: personally reviewed, other (Telemetry reviewed with average heart rate 72, atrial fibrillation. Longest pause 2.1 seconds.) Consult Discharge Plan - Plan Referrals: El,Moustapha Zuluaga MD [Primary Care Provider] -
--- NOTE | 2016-12-06 11:56 | Event Note ---
Date of Encounter: 12/06/16 Time of Encounter: 11:54 - Cardiology Event Note Moffett check on eliquis noted to be $347/month. Patient states that this is unafforable to him. Patient hesitant to be placed on coumadin, but agreeable. Coumadin ordered per pharmacy dosing. Target INR 2.0-3.0. Cardiology will sign off and follow up as ouptatient.
[2016-12-06] MEDS ORDERED: *HR* Warfarin 5 MG TABLET PO ONE (18:00)
[2016-12-06] MEDS ORDERED: Warfarin perPT PO PRN (18:00)
[2016-12-07] MEDS: Ipratropium/Albuterol Neb 3 ML IH SCH ×8 (03:54→23:04)
[2016-12-07] MEDS: *HR* Enoxaparin 120 MG/0.8 ML SYRINGE SQ SCH ×2 (05:08→16:51)
[2016-12-07] MEDS: Levothyroxine 25 MCG TABLET PO SCH (05:08)
[2016-12-07 05:57] LABS: INR 1.3; Prothrombin Time 14.2 Seconds (9.4-12.1)
[2016-12-07 06:19] LABS: Alanine Aminotransferase 77 Units/L (0-55); Albumin/Globulin Ratio 0.8 (1.1-2.2); Alkaline Phosphatase 102 Units/L (38-126); Aspartate Amino Transferase 67 Units/L (5-34); BUN/Creatinine Ratio 15 (6-26); Bilirubin,Direct 0.3 mg/dL (0.0-0.5); Bilirubin,Indirect 0.3 mg/dL (0.0-1.2); Bilirubin,Total 0.6 mg/dL (0.2-1.2); Blood Urea Nitrogen 15 mg/dL (8-26); Calcium 9.1 mg/dL (8.6-10.8); Carbon Dioxide 21 mEq/L (19-29); Chloride 107 mEq/L (98-109); Globulin 3.7 g/dL (2.4-3.5); Glucose 242 mg/dL (70-99); Magnesium 1.8 mg/dL (1.6-2.6); Osmolality,Calculated 295 (280-300); Phosphorous 3.2 mg/dL (2.3-4.7); Potassium 4.1 mEq/L (3.5-4.5); Sodium 138 mEq/L (136-145); Total Protein 6.7 g/dL (6.0-8.3); eGFR For African Americans > 60 (> 60); eGFR For Non-African Americans > 60 (> 60)
[2016-12-07 06:39] LABS: C-Reactive Protein 54 mg/L (Less than 5)
--- NOTE | 2016-12-07 08:52 | Internal Med Progress Note ---
<Yaya Arias - Last Filed: 12/07/16 13:47> Date of Encounter: 12/07/16 - Constitutional Vitals: Temp Pulse Resp BP Pulse Ox 97.3 F L 82 16 160/108 97 12/07/16 07:39 12/07/16 07:39 12/07/16 11:08 12/07/16 07:39 12/07/16 11:08 Internal Medicine: Result - Labs CBC & Chem 7: 12/06/16 03:38 12/07/16 05:35 Labs: BMP 12/07/16 05:35 Sodium 138 Potassium 4.1 Chloride 107 Carbon Dioxide 21 BUN 15 Creatinine 1.00 Glucose 242 H Calcium 9.1 Liver Function 12/07/16 Range/Units 05:35 Total Bilirubin 0.6 (0.2-1.2) mg/dL Direct Bilirubin 0.3 (0.0-0.5) mg/dL AST 67 H (5-34) Units/L ALT 77 H (0-55) Units/L Alkaline Phosphatase 102 (38-126) Units/L Albumin 3.0 L (3.5-5.0) g/dL - ABG Interpretation ABG results: PT/INR, D-dimer PT 14.2 Seconds (9.4-12.1) H 12/07/16 05:35 Consult Discharge Plan - Plan Referrals: Moustapha Gallegos MD [Primary Care Provider] - 12/27/16 8:30 am Senthil Mack CNP [Advanced Practice Nurse] - 12/27/16 8:30 am - Attending Attestation I examined this patient and my medical decision-making was reviewed with the PAYROLL MASTER/PA/Advanced Practice Nurse/Resident Physician. I agree with the documented findings, disposition and treatment plan as described except to the extent set forth below. <Dell Hamilton - Last Filed: 12/07/16 16:37> Date of Encounter: 12/07/16 Time of Encounter: 07:30 - Assessment and plan (1) Pneumonia Current Visit: Yes Status: Acute Assessment and plan: 12/06/15 -PMH colon cancer. No history of COPD. -Three rounds of Abx (Z-pack) through his PCP without resolution of symptoms. -CT: Patchy infiltrates either multifocal pneumonia or inflammatory process. -BNP less than 200. Rheumatoid factor 0. -QTc<500, consider repeat EKG prior to discharge. Levaquin and prolonged QT syndrome. -Patient has no previous hospitalizations, doesnt live in a care home, no recent surgeries. Will treat for CAP Plan -Continue Levaquin. QT<500 -Obtain sputum culture if able -Patient has codeine cough suryp prn -Estimated hospital stay <48 hours. 12/07/16 -Patient doing well today. Cough improved. plan -Probable discharge home tomorow on levaquin Qualifiers: Pneumonia type: due to unspecified organism Laterality: bilateral Lung location: lower lobe of lung Qualified Code(s): J18.9 - Pneumonia, unspecified organism (2) A-fib Current Visit: Yes Status: Acute Assessment and plan: 12/06/16 -Extensive cardiac PMH, DM, and WPW. Not afib. Previously on Coumadin, stop because he developed hematuria years ago. -Heart rate in the 80s. Currently on atenolol. Patient on Lovenox 110 mg every 12 hours. -EKG showed atrial fibrillation. Echocardiogram: LVEF 50-55%, mild concentric left ventricular hypertrophy, mild regurg...see report. -Per cardio, moi too expensive. Patient agree to use Coumadin. Cardio signed off and follow as outpatient. Plan -Monitor Mg, -Consider stopping imdur -Coumadin started -Monitor INR, Coags, 12/07/16 -same plan Qualifiers: Atrial fibrillation type: paroxysmal Qualified Code(s): I48.0 - Paroxysmal atrial fibrillation (3) DVT prophylaxis Current Visit: Yes Status: Acute Assessment and plan: -Lovenox. Coumadin started. (4) Failure of outpatient treatment Current Visit: Yes Status: Acute Assessment and plan: -PCP to 3 rounds Zpack, with no relief. (5) Diabetes Current Visit: Yes Status: Acute Assessment and plan: -Glucose elevated. However, going to be discharged tomorrow. Will not make adjustments. Qualifiers: Diabetes mellitus type: type 2 Diabetes mellitus complication status: with unspecified complications Qualified Code(s): E11.8 - Type 2 diabetes mellitus with unspecified complications; Z79.4 - longterm (current) use of insulin - Time Spent With Patient 25 - 35 minutes - Subjective Interval history: Past medical history of colon cancer status post colectomy in 2006, Andi Miller. c/c: Worsening cough and shortness of breath. Patient is sitting up in the chair. Comfortable. Admits to a nonproductive cough. Denies chest pain, palpitations, shortness of breath, nausea, vomiting, diarrhea, fever. Has no complaints or concerns at this time. 12/07/16 Patient sitting in chair and comfortable. Feels like cough is improving. Denies any SOB or chestpain. Has no questions or concerns at this time. Denies hematuria. - Constitutional Vitals: Temp Pulse Resp BP Pulse Ox 97.3 F L 82 16 160/108 97 12/07/16 07:39 12/07/16 07:39 12/07/16 07:39 12/07/16 07:39 12/07/16 07:39 General appearance: Present: A&O X 3, pleasant, obese, answers questions appropriately - Head Head exam: Present: atraumatic, normocephalic - Eye Eye exam: Present: PERRL, conjuntiva pink, sclera anicteric Pupils: Present: PERRL - Neck Neck exam general surgery: Present: supple, trachea midline. Absent: lymphadenopathy - Respiratory Respiratory exam: Absent: accessory muscle use, rales, rhonchi, wheezes Additional comments: mild crackles - Cardiovascular Cardiovascular exam: Present: RRR, +S1, +S2. Absent: diastolic murmur, gallop, rubs, systolic murmur - GI/Abdominal GI/Abdominal exam: Present: normal bowel sounds, soft, no peritoneal signs. Absent: distended, tenderness - Extremities Exam Extremities exam: Present: warm, radial pulses palpable and symetrical. Absent : calf tenderness, cyanotic, pedal edema - Neurological Exam Neurological exam: Present: CN II-XII intact, oriented X3, no focal deficits. Absent: pronater drift, facial droop, speech deficit - Skin Skin exam: Present: dry, intact Internal Medicine: Result - Labs CBC & Chem 7: 12/06/16 03:38 12/07/16 05:35 Labs: BMP 12/07/16 05:35 Sodium 138 Potassium 4.1 Chloride 107 Carbon Dioxide 21 BUN 15 Creatinine 1.00 Glucose 242 H Calcium 9.1 Liver Function 12/07/16 Range/Units 05:35 Total Bilirubin 0.6 (0.2-1.2) mg/dL Direct Bilirubin 0.3 (0.0-0.5) mg/dL AST 67 H (5-34) Units/L ALT 77 H (0-55) Units/L Alkaline Phosphatase 102 (38-126) Units/L Albumin 3.0 L (3.5-5.0) g/dL - ABG Interpretation ABG results: PT/INR, D-dimer PT 14.2 Seconds (9.4-12.1) H 12/07/16 05:35
[2016-12-07] MEDS: Levofloxacin 750 MG/150 ML 750 MG/150 ML BAG IVPB SCH (09:04)
[2016-12-07] MEDS: Isosorbide MONOnitrate (24 HR) 60 MG TAB.ER.24H PO SCH (09:05)
[2016-12-07] MEDS: Aspirin 325 MG TABLET PO SCH (09:05)
[2016-12-07] MEDS: Finasteride 5 MG TABLET PO SCH (09:06)
[2016-12-07] MEDS: EPA PO SCH ×2 (09:07→19:44)
[2016-12-07] MEDS: OMEGA PO SCH ×2 (09:07→19:44)
[2016-12-07] MEDS: DHA PO SCH ×2 (09:07→19:44)
[2016-12-07] MEDS: FISH OIL PO SCH ×2 (09:07→19:44)
[2016-12-07] MEDS: Insulin LISPRO 300 UNITS/3 ML VIAL SQ SCH ×4 (09:08→20:38)
[2016-12-07] MEDS ORDERED: GuaiFENesin/Codeine Oral Soln 5 ML UDC PO PRN (17:11)
[2016-12-07] MEDS ORDERED: *HR* Warfarin 5 MG TABLET PO ONE (18:00)
[2016-12-07] MEDS: GuaiFENesin/Codeine Oral Soln 5 ML UDC PO SCH (21:54)
[2016-12-08] MEDS: GuaiFENesin/Codeine Oral Soln 5 ML UDC PO SCH ×6 (01:25→20:41)
[2016-12-08] MEDS: Ipratropium/Albuterol Neb 3 ML IH SCH ×6 (04:35→23:26)
[2016-12-08] MEDS: *HR* Enoxaparin 120 MG/0.8 ML SYRINGE SQ SCH ×2 (05:20→16:39)
[2016-12-08] MEDS: Levothyroxine 25 MCG TABLET PO SCH (05:20)
[2016-12-08 06:04] LABS: INR 1.3; Prothrombin Time 13.7 Seconds (9.4-12.1)
[2016-12-08 06:05] LABS: Hematocrit 40.2 % (37.5-50.1); Hemoglobin 13.1 g/dL (12.9-16.9)
[2016-12-08 06:16] LABS: BUN/Creatinine Ratio 13 (6-26); Blood Urea Nitrogen 14 mg/dL (8-26); Calcium 9.5 mg/dL (8.6-10.8); Carbon Dioxide 20 mEq/L (19-29); Chloride 106 mEq/L (98-109); Glucose 278 mg/dL (70-99); Osmolality,Calculated 296 (280-300); Potassium 4.5 mEq/L (3.5-4.5); Sodium 138 mEq/L (136-145); eGFR For African Americans > 60 (> 60); eGFR For Non-African Americans > 60 (> 60)
[2016-12-08] MEDS: Insulin LISPRO 300 UNITS/3 ML VIAL SQ SCH ×4 (08:16→22:28)
[2016-12-08] MEDS: Aspirin 325 MG TABLET PO SCH (08:17)
[2016-12-08] MEDS: Levofloxacin 750 MG/150 ML 750 MG/150 ML BAG IVPB SCH (08:17)
[2016-12-08] MEDS: OMEGA PO SCH ×2 (08:18→20:41)
[2016-12-08] MEDS: Isosorbide MONOnitrate (24 HR) 60 MG TAB.ER.24H PO SCH (08:18)
[2016-12-08] MEDS: DHA PO SCH ×2 (08:18→20:41)
[2016-12-08] MEDS: EPA PO SCH ×2 (08:18→20:41)
[2016-12-08] MEDS: FISH OIL PO SCH ×2 (08:18→20:41)
[2016-12-08] MEDS: Finasteride 5 MG TABLET PO SCH (08:18)
--- NOTE | 2016-12-08 09:33 | Internal Med Progress Note ---
<Dell Hamilton - Last Filed: 12/08/16 14:41> Date of Encounter: 12/08/16 Time of Encounter: 09:33 - Assessment and plan (1) Pneumonia Current Visit: Yes Status: Acute Assessment and plan: 12/06/15 -PMH colon cancer. No history of COPD. -Three rounds of Abx (Z-pack) through his PCP without resolution of symptoms. -CT: Patchy infiltrates either multifocal pneumonia or inflammatory process. -BNP less than 200. Rheumatoid factor 0. -QTc<500, consider repeat EKG prior to discharge. Levaquin and prolonged QT syndrome. -Patient has no previous hospitalizations, doesnt live in a skilled nursing, no recent surgeries. Will treat for CAP Plan -Continue Levaquin. QT<500 -Obtain sputum culture if able -Patient has codeine cough suryp prn -Estimated hospital stay <48 hours. 12/07/16 -Patient doing well today. Cough improved. plan -Probable discharge home tomorow on levaquin 12/07/16 -Only complains of persistent, non productive cough -Explained to patient he will have residual cough. However, I feel like this cough is very uncomfortable and hinders the patients progress. -Patient not complaining of SOB, symptoms not worsening, lung sounds not worse, but improved. No repeat CXR needed at this time. -Repeat EKG to evaluate Qtc was WNL (<420) Plan -Continue IV Levaquin. Switch to oral Levaquin at day of discharge. -Tesselon irmals ordered scheduled, codeine cough suryp dose increased and prn. Qualifiers: Pneumonia type: due to unspecified organism Laterality: bilateral Lung location: lower lobe of lung Qualified Code(s): J18.9 - Pneumonia, unspecified organism (2) A-fib Current Visit: Yes Status: Acute Assessment and plan: 12/06/16 -Extensive cardiac PMH, DM, and WPW. Not afib. Previously on Coumadin, stop because he developed hematuria years ago. -Heart rate in the 80s. Currently on atenolol. Patient on Lovenox 110 mg every 12 hours. -EKG showed atrial fibrillation. Echocardiogram: LVEF 50-55%, mild concentric left ventricular hypertrophy, mild regurg...see report. -Per cardiomoi too expensive. Patient agree to use Coumadin. Cardio signed off and follow as outpatient. Plan -Monitor Mg, -Consider stopping imdur -Coumadin started -Monitor INR, Coags, 12/07/16 -same plan 12/08/16 -INR not in theraputic range. Patient on lovenox bridge and recently started on Coumadin. -Did touch base with pharmacy. They are aware. Plan -Continue with pharmacy dosing Qualifiers: Atrial fibrillation type: paroxysmal Qualified Code(s): I48.0 - Paroxysmal atrial fibrillation (3) DVT prophylaxis Current Visit: Yes Status: Acute Assessment and plan: -Lovenox. Coumadin started recently (4) Failure of outpatient treatment Current Visit: Yes Status: Acute Assessment and plan: -PCP to 3 rounds Melvin, with no relief. (5) Diabetes Current Visit: Yes Status: Acute Assessment and plan: -Glucose elevated. However, going to be discharged tomorrow. Will not make adjustments. 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 c/c: Worsening cough and shortness of breath. Patient is sitting up in the chair. Comfortable. Admits to a nonproductive cough. Denies chest pain, palpitations, shortness of breath, nausea, vomiting, diarrhea, fever. Has no complaints or concerns at this time. 12/07/16 Patient sitting in chair and comfortable. Feels like cough is improving. Denies any SOB or chestpain. Has no questions or concerns at this time. Denies hematuria. 12/08/16 Patient sitting in chair and comfortable. Only complaint is non productive cough. Keeps him up at night and causing discomfort. States that the codeine cough suryp didn't help. Has not tried tesslon pearls. States that he would like to stay another night, feels uncomfortable going home to a sick and "he would probably have to come back" if discharged today. - Constitutional Vitals: Temp Pulse Resp BP Pulse Ox 97.9 F 73 16 177/95 98 12/08/16 07:56 12/08/16 07:56 12/08/16 07:56 12/08/16 07:56 12/08/16 07:56 General appearance: Present: A&O X 3, pleasant, obese, answers questions appropriately - Head Head exam: Present: atraumatic, normocephalic - Eye Eye exam: Present: PERRL, conjuntiva pink, sclera anicteric Pupils: Present: PERRL - Neck Neck exam general surgery: Present: supple, trachea midline. Absent: lymphadenopathy - Respiratory Respiratory exam: Present: rhonchi. Absent: accessory muscle use, CTAB, rales, wheezes - Cardiovascular Cardiovascular exam: Present: irregular rhythm, +S1, +S2. Absent: diastolic murmur, gallop, rubs, systolic murmur - GI/Abdominal GI/Abdominal exam: Present: normal bowel sounds, soft, no peritoneal signs. Absent: distended, tenderness - Extremities Exam Extremities exam: Present: warm, radial pulses palpable and symetrical. Absent : calf tenderness, cyanotic, pedal edema - Neurological Exam Neurological exam: Present: CN II-XII intact, oriented X3, no focal deficits. Absent: pronater drift, facial droop, speech deficit - Skin Skin exam: Present: dry, intact Internal Medicine: Result - Labs CBC & Chem 7: 12/08/16 05:41 12/08/16 05:41 Labs: Short CBC 12/08/16 Range/Units 05:41 Hgb 13.1 (12.9-16.9) g/dL Hct 40.2 (37.5-50.1) % BMP 12/08/16 05:41 Sodium 138 Potassium 4.5 Chloride 106 Carbon Dioxide 20 BUN 14 Creatinine 1.07 Glucose 278 H Calcium 9.5 - ABG Interpretation ABG results: PT/INR, D-dimer PT 13.7 Seconds (9.4-12.1) H 12/08/16 05:41 Consult Discharge Plan - Plan Instructions: Heart Failure (DC), Atrial Fibrillation (DC), Diabetes Mellitus Type 2 in Adults (DC), Pneumonia (DC) Additional Instructions: Follow-up appointments: If there is not an appointment listed below, please call your physician and schedule a follow-up appointment. If you have congestive heart failure and your symptoms return, make an appointment with your physician. Symptoms: If your condition changes or you experience any of the following symptoms, notify your physician immediately: Unusual or worsening pain, fever, persistent nausea and vomiting, bleeding, increase in swelling (especially in your legs), sudden weight gain, extreme dizziness, chest pain, increased drainage or redness from a wound or incision. Go to the emergency department if you experience a problem with breathing. Weights: If you have a history of swelling or shortness of breath, weigh yourself daily and notify your physician if you have a weight gain of two or more pounds in one day or 5 or more pounds in a week. If you experience any of the warning signs for stroke: Sudden numbness or weakness of the face, arm or leg; especially on one side of the body, sudden confusion, trouble speaking or understanding, sudden trouble seeing in one or both eyes, sudden trouble walking, dizziness, loss of balance or coordination, sudden sever headache with no cause; Call 911 or go to the emergency room. Stroke is a medical emergency. Some risk factors for stroke: Age, cigarette smoking, diabetes, excessive alcohol consumption, family history , high blood pressure, overweight, physical inactivity, prior stroke, heart attack, diagnosis of carotid artery stenosis or other artery disease. If you smoke, STOP: Smoking or tobacco use significantly increases your risk of heart and lung disease. Your chance of disease greatly increases if you continue to smoke. For more information, call the [place] tobacco quit line for smoking cessation 6-480- QUIT-NOW ( ) Referrals: Moustapha Gallegos MD [Primary Care Provider] - 12/27/16 8:30 am Senthil Mack CNP [Advanced Practice Nurse] - 12/27/16 8:30 am <Yaya Arias P - Last Filed: 12/08/16 14:47> Date of Encounter: 12/08/16 - Constitutional Vitals: Temp Pulse Resp BP Pulse Ox 97.9 F 79 16 177/95 97 12/08/16 07:56 12/08/16 12:32 12/08/16 12:32 12/08/16 07:56 12/08/16 10:13 Internal Medicine: Result - Labs CBC & Chem 7: 12/08/16 05:41 12/08/16 05:41 Labs: Short CBC 12/08/16 Range/Units 05:41 Hgb 13.1 (12.9-16.9) g/dL Hct 40.2 (37.5-50.1) % BMP 12/08/16 05:41 Sodium 138 Potassium 4.5 Chloride 106 Carbon Dioxide 20 BUN 14 Creatinine 1.07 Glucose 278 H Calcium 9.5 - ABG Interpretation ABG results: PT/INR, D-dimer PT 13.7 Seconds (9.4-12.1) H 12/08/16 05:41 - Attending Attestation I examined this patient and my medical decision-making was reviewed with the CERTIFIED NURSE AIDE/PA/Advanced Practice Nurse/Resident Physician. I agree with the documented findings, disposition and treatment plan as described except to the extent set forth below.
[2016-12-08] MEDS: Benzonatate 100 MG CAPSULE PO SCH ×2 (16:39→20:31)
[2016-12-08] MEDS ORDERED: *HR* Warfarin 5 MG TABLET PO ONE (18:00)
[2016-12-09] MEDS: Ipratropium/Albuterol Neb 3 ML IH SCH ×4 (05:09→22:27)
[2016-12-09] MEDS: Levothyroxine 25 MCG TABLET PO SCH (06:10)
[2016-12-09] MEDS: GuaiFENesin/Codeine Oral Soln 5 ML UDC PO SCH ×6 (06:11→21:34)
[2016-12-09] MEDS: *HR* Enoxaparin 120 MG/0.8 ML SYRINGE SQ SCH ×2 (06:11→17:23)
[2016-12-09 06:33] LABS: Hematocrit 35.3 % (37.5-50.1); Hemoglobin 12.3 g/dL (12.9-16.9)
[2016-12-09 06:35] LABS: INR 1.3; Prothrombin Time 14.2 Seconds (9.4-12.1)
[2016-12-09 06:38] LABS: Activated Partial Thrombo Time 33.4 Seconds (26.0-36.0)
[2016-12-09 06:45] LABS: BUN/Creatinine Ratio 13 (6-26); Blood Urea Nitrogen 12 mg/dL (8-26); Calcium 9.2 mg/dL (8.6-10.8); Carbon Dioxide 22 mEq/L (19-29); Chloride 105 mEq/L (98-109); Glucose 259 mg/dL (70-99); Osmolality,Calculated 293 (280-300); Potassium 4.1 mEq/L (3.5-4.5); Sodium 137 mEq/L (136-145); eGFR For African Americans > 60 (> 60); eGFR For Non-African Americans > 60 (> 60)
[2016-12-09] MEDS: Insulin LISPRO 300 UNITS/3 ML VIAL SQ SCH ×4 (08:23→21:37)
--- NOTE | 2016-12-09 10:17 | Internal Med Progress Note ---
Date of Encounter: 12/09/16 Time of Encounter: 10:14 - Assessment and plan (1) Pneumonia Current Visit: Yes Status: Acute Assessment and plan: 12/06/15 -PMH colon cancer. No history of COPD. -Three rounds of Abx (Z-pack) through his PCP without resolution of symptoms. -CT: Patchy infiltrates either multifocal pneumonia or inflammatory process. -BNP less than 200. Rheumatoid factor 0. -QTc<500, consider repeat EKG prior to discharge. Levaquin and prolonged QT syndrome. -Patient has no previous hospitalizations, doesnt live in a retirement, no recent surgeries. Will treat for CAP Plan -Continue Levaquin. QT<500 -Obtain sputum culture if able -Patient has codeine cough suryp prn -Estimated hospital stay <48 hours. 12/07/16 -Patient doing well today. Cough improved. plan -Probable discharge home tomorow on levaquin 12/07/16 -Only complains of persistent, non productive cough -Explained to patient he will have residual cough. However, I feel like this cough is very uncomfortable and hinders the patients progress. -Patient not complaining of SOB, symptoms not worsening, lung sounds not worse, but improved. No repeat CXR needed at this time. -Repeat EKG to evaluate Qtc was WNL (<420) Plan -Continue IV Levaquin. Switch to oral Levaquin at day of discharge. -Crystal newby ordered scheduled, codeine cough suryp dose increased and prn. 12/09/2016 will continue IV abx for one more day. possible home tomorrow Qualifiers: Pneumonia type: due to unspecified organism Laterality: bilateral Lung location: lower lobe of lung Qualified Code(s): J18.9 - Pneumonia, unspecified organism (2) A-fib Current Visit: Yes Status: Acute Assessment and plan: 12/06/16 -Extensive cardiac PMH, DM, and WPW. Not afib. Previously on Coumadin, stop because he developed hematuria years ago. -Heart rate in the 80s. Currently on atenolol. Patient on Lovenox 110 mg every 12 hours. -EKG showed atrial fibrillation. Echocardiogram: LVEF 50-55%, mild concentric left ventricular hypertrophy, mild regurg...see report. -Per cardio, moi too expensive. Patient agree to use Coumadin. Cardio signed off and follow as outpatient. Plan -Monitor Mg, -Consider stopping imdur -Coumadin started -Monitor INR, Coags, 12/07/16 -same plan 12/08/16 -INR not in theraputic range. Patient on lovenox bridge and recently started on Coumadin. -Did touch base with pharmacy. They are aware. Plan -Continue with pharmacy dosing 12/09/2016 continue same Lovenox. possible go home tomorrow with Lovenox and Outpatient follow up Qualifiers: Atrial fibrillation type: paroxysmal Qualified Code(s): I48.0 - Paroxysmal atrial fibrillation (3) Failure of outpatient treatment Current Visit: Yes Status: Acute Assessment and plan: -PCP to 3 rounds Zpack, with no relief. (4) DVT prophylaxis Current Visit: Yes Status: Acute Assessment and plan: -Lovenox. Coumadin started recently - Subjective Interval history: seen and examined. still coughing. sitting in a chair. - Constitutional Vitals: Temp Pulse Resp BP Pulse Ox 98.1 F 80 18 144/81 94 L 12/09/16 07:06 12/09/16 07:06 12/09/16 10:05 12/09/16 07:06 12/09/16 10:05 General appearance: Present: A&O X 3, pleasant, obese, answers questions appropriately - Head Head exam: Present: atraumatic, normocephalic - Eye Eye exam: Present: PERRL, conjuntiva pink, sclera anicteric Pupils: Present: PERRL - Neck Neck exam general surgery: Present: supple, trachea midline. Absent: lymphadenopathy - Respiratory Respiratory exam: Present: CTAB. Absent: accessory muscle use, rales, rhonchi, wheezes - Cardiovascular Cardiovascular exam: Present: RRR, +S1, +S2. Absent: diastolic murmur, gallop, rubs, systolic murmur - GI/Abdominal GI/Abdominal exam: Present: normal bowel sounds, soft, no peritoneal signs. Absent: distended, tenderness - Extremities Exam Extremities exam: Present: warm, radial pulses palpable and symetrical. Absent : calf tenderness, cyanotic, pedal edema - Neurological Exam Neurological exam: Present: CN II-XII intact, oriented X3, no focal deficits. Absent: pronater drift, facial droop, speech deficit - Skin Skin exam: Present: dry, intact Internal Medicine: Result - Labs CBC & Chem 7: 12/09/16 06:06 12/09/16 06:06 Labs: Short CBC 12/09/16 Range/Units 06:06 Hgb 12.3 L (12.9-16.9) g/dL Hct 35.3 L (37.5-50.1) % BMP 12/09/16 06:06 Sodium 137 Potassium 4.1 Chloride 105 Carbon Dioxide 22 BUN 12 Creatinine 0.96 Glucose 259 H Calcium 9.2 - ABG Interpretation ABG results: PT/INR, D-dimer PT 14.2 Seconds (9.4-12.1) H 12/09/16 06:06 Consult Discharge Plan - Plan Instructions: Heart Failure (DC), Atrial Fibrillation (DC), Diabetes Mellitus Type 2 in Adults (DC), Pneumonia (DC) Additional Instructions: Follow-up appointments: If there is not an appointment listed below, please call your physician and schedule a follow-up appointment. If you have congestive heart failure and your symptoms return, make an appointment with your physician. Symptoms: If your condition changes or you experience any of the following symptoms, notify your physician immediately: Unusual or worsening pain, fever, persistent nausea and vomiting, bleeding, increase in swelling (especially in your legs), sudden weight gain, extreme dizziness, chest pain, increased drainage or redness from a wound or incision. Go to the emergency department if you experience a problem with breathing. Weights: If you have a history of swelling or shortness of breath, weigh yourself daily and notify your physician if you have a weight gain of two or more pounds in one day or 5 or more pounds in a week. If you experience any of the warning signs for stroke: Sudden numbness or weakness of the face, arm or leg; especially on one side of the body, sudden confusion, trouble speaking or understanding, sudden trouble seeing in one or both eyes, sudden trouble walking, dizziness, loss of balance or coordination, sudden sever headache with no cause; Call 911 or go to the emergency room. Stroke is a medical emergency. Some risk factors for stroke: Age, cigarette smoking, diabetes, excessive alcohol consumption, family history , high blood pressure, overweight, physical inactivity, prior stroke, heart attack, diagnosis of carotid artery stenosis or other artery disease. If you smoke, STOP: Smoking or tobacco use significantly increases your risk of heart and lung disease. Your chance of disease greatly increases if you continue to smoke. For more information, call the [place] tobacco quit line for smoking cessation -NOW ( ) Referrals: Moustapha Gallegos MD [Primary Care Provider] - 12/27/16 8:30 am Senthil Mack CNP [Advanced Practice Nurse] - 12/27/16 8:30 am
[2016-12-09] MEDS: Levofloxacin 750 MG/150 ML 750 MG/150 ML BAG IVPB SCH (10:51)
[2016-12-09] MEDS: Benzonatate 100 MG CAPSULE PO SCH ×3 (10:52→21:34)
[2016-12-09] MEDS: Aspirin 325 MG TABLET PO SCH (10:54)
[2016-12-09] MEDS: Finasteride 5 MG TABLET PO SCH (10:55)
[2016-12-09] MEDS: Isosorbide MONOnitrate (24 HR) 60 MG TAB.ER.24H PO SCH (11:08)
[2016-12-09] MEDS: EPA PO SCH ×2 (12:31→21:34)
[2016-12-09] MEDS: DHA PO SCH ×2 (12:31→21:34)
[2016-12-09] MEDS: OMEGA PO SCH ×2 (12:31→21:34)
[2016-12-09] MEDS: FISH OIL PO SCH ×2 (12:31→21:34)
[2016-12-09] MEDS ORDERED: *HR* Warfarin 4 MG TABLET PO ONE (18:00)
[2016-12-10] MEDS: GuaiFENesin/Codeine Oral Soln 5 ML UDC PO SCH ×6 (01:04→21:42)
[2016-12-10] MEDS: Ipratropium/Albuterol Neb 3 ML IH SCH ×4 (04:30→23:03)
[2016-12-10 06:23] LABS: Basophils % 0.7 %; Eosinophils # 0.1 K/mcL (0.0-0.6); Eosinophils % 2.4 %; Hematocrit 35.2 % (37.5-50.1); Hemoglobin 11.9 g/dL (12.9-16.9); Lymphocytes # 1.5 K/mcL (0.6-4.6); Lymphocytes % 26.6 %; Mean Corpuscular HGB Conc 33.8 g/dL (31.6-35.5); Mean Corpuscular Hemoglobin 29.4 pg (28.0-33.3); Mean Corpuscular Volume 86.9 fL (83.0-100.0); Monocytes # 0.6 K/mcL (0.0-1.3); Monocytes % 10.4 %; Neutrophils # 3.1 K/mcL (1.6-8.9); Platelet Count 219 K/mcL (140-400); Red Blood Count 4.05 M/mcL (4.19-5.50); Red Cell Distribution Width 13.1 % (11.5-14.5); Segmented Neutrophils % 55.9 %
[2016-12-10] MEDS: Levothyroxine 25 MCG TABLET PO SCH (06:23)
[2016-12-10] MEDS: *HR* Enoxaparin 120 MG/0.8 ML SYRINGE SQ SCH ×2 (06:23→17:16)
[2016-12-10 06:26] LABS: INR 1.3; Prothrombin Time 14.4 Seconds (9.4-12.1)
[2016-12-10 06:33] LABS: Alanine Aminotransferase 89 Units/L (0-55); Albumin/Globulin Ratio 0.8 (1.1-2.2); Alkaline Phosphatase 132 Units/L (38-126); Aspartate Amino Transferase 53 Units/L (5-34); BUN/Creatinine Ratio 10 (6-26); Bilirubin,Total 0.6 mg/dL (0.2-1.2); Blood Urea Nitrogen 11 mg/dL (8-26); Calcium 9.2 mg/dL (8.6-10.8); Carbon Dioxide 24 mEq/L (19-29); Chloride 103 mEq/L (98-109); Globulin 3.7 g/dL (2.4-3.5); Glucose 240 mg/dL (70-99); Osmolality,Calculated 291 (280-300); Potassium 4.4 mEq/L (3.5-4.5); Sodium 137 mEq/L (136-145); Total Protein 6.7 g/dL (6.0-8.3); eGFR For African Americans > 60 (> 60); eGFR For Non-African Americans > 60 (> 60)
[2016-12-10] MEDS: Insulin LISPRO 300 UNITS/3 ML VIAL SQ SCH ×4 (09:20→21:45)
[2016-12-10] MEDS: Aspirin 325 MG TABLET PO SCH (09:21)
[2016-12-10] MEDS: Isosorbide MONOnitrate (24 HR) 60 MG TAB.ER.24H PO SCH (09:21)
[2016-12-10] MEDS: Finasteride 5 MG TABLET PO SCH (09:21)
[2016-12-10] MEDS: Levofloxacin 750 MG/150 ML 750 MG/150 ML BAG IVPB SCH (09:22)
[2016-12-10] MEDS: DHA PO SCH ×2 (09:23→21:52)
[2016-12-10] MEDS: OMEGA PO SCH ×2 (09:23→21:52)
[2016-12-10] MEDS: Benzonatate 100 MG CAPSULE PO SCH ×3 (09:23→21:42)
[2016-12-10] MEDS: EPA PO SCH ×2 (09:23→21:52)
[2016-12-10] MEDS: FISH OIL PO SCH ×2 (09:23→21:52)
--- NOTE | 2016-12-10 13:16 | Electrocardiograph Report ---
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
--- NOTE | 2016-12-10 17:03 | Internal Med Progress Note ---
Date of Encounter: 12/10/16 Time of Encounter: 17:01 - Assessment and plan (1) Pneumonia Current Visit: Yes Status: Acute Assessment and plan: 12/06/15 -H colon cancer. No history of COPD. -Three rounds of Abx (Z-pack) through his PCP without resolution of symptoms. -CT: Patchy infiltrates either multifocal pneumonia or inflammatory process. -BNP less than 200. Rheumatoid factor 0. -QTc<500, consider repeat EKG prior to discharge. Levaquin and prolonged QT syndrome. -Patient has no previous hospitalizations, doesnt live in a [place] [facility] facility, no recent surgeries. Will treat for CAP Plan -Continue Levaquin. QT<500 -Obtain sputum culture if able -Patient has codeine cough suryp prn -Estimated hospital stay <48 hours. 12/07/16 -Patient doing well today. Cough improved. plan -Probable discharge home tomorow on levaquin 12/07/16 -Only complains of persistent, non productive cough -Explained to patient he will have residual cough. However, I feel like this cough is very uncomfortable and hinders the patients progress. -Patient not complaining of SOB, symptoms not worsening, lung sounds not worse, but improved. No repeat CXR needed at this time. -Repeat EKG to evaluate Qtc was WNL (<420) Plan -Continue IV Levaquin. Switch to oral Levaquin at day of discharge. -Crystal newby ordered scheduled, codeine cough suryp dose increased and prn. 12/09/2016 will continue IV abx for one more day. possible home tomorrow 12/10/2016 INR still 1.3 no family member to pick him up. ( is ill and at home) will come tomorrow to [facility] home tomorrow. Qualifiers: Pneumonia type: due to unspecified organism Laterality: bilateral Lung location: lower lobe of lung Qualified Code(s): J18.9 - Pneumonia, unspecified organism (2) A-fib Current Visit: Yes Status: Acute Assessment and plan: 12/06/16 -Extensive cardiac PMH, DM, and WPW. Not afib. Previously on Coumadin, stop because he developed hematuria years ago. -Heart rate in the 80s. Currently on atenolol. Patient on Lovenox 110 mg every 12 hours. -EKG showed atrial fibrillation. Echocardiogram: LVEF 50-55%, mild concentric left ventricular hypertrophy, mild regurg...see report. -Per cardio, moi too expensive. Patient agree to use Coumadin. Cardio signed off and follow as outpatient. Plan -Monitor Mg, -Consider stopping imdur -Coumadin started -Monitor INR, Coags, 12/07/16 -same plan 12/08/16 -INR not in theraputic range. Patient on lovenox bridge and recently started on Coumadin. -Did touch base with pharmacy. They are aware. Plan -Continue with pharmacy dosing 12/09/2016 continue same Lovenox. possible go home tomorrow with Lovenox and Outpatient follow up Qualifiers: Atrial fibrillation type: paroxysmal Qualified Code(s): I48.0 - Paroxysmal atrial fibrillation (3) Failure of outpatient treatment Current Visit: Yes Status: Acute Assessment and plan: -PCP to 3 rounds Zpack, with no relief. (4) DVT prophylaxis Current Visit: Yes Status: Acute Assessment and plan: -Lovenox. Coumadin started recently - Subjective Interval history: seen and examined. still coughing. sitting in a chair. - Constitutional Vitals: Temp Pulse Resp BP Pulse Ox 97.9 F 82 16 128/61 96 12/10/16 16:11 12/10/16 16:11 12/10/16 16:11 12/10/16 16:11 12/10/16 16:11 General appearance: Present: A&O X 3, pleasant, obese, answers questions appropriately - Head Head exam: Present: atraumatic, normocephalic - Eye Eye exam: Present: PERRL, conjuntiva pink, sclera anicteric Pupils: Present: PERRL - Neck Neck exam general surgery: Present: supple, trachea midline. Absent: lymphadenopathy - Respiratory Respiratory exam: Present: CTAB. Absent: accessory muscle use, rales, rhonchi, wheezes - Cardiovascular Cardiovascular exam: Present: RRR, +S1, +S2. Absent: diastolic murmur, gallop, rubs, systolic murmur - GI/Abdominal GI/Abdominal exam: Present: normal bowel sounds, soft, no peritoneal signs. Absent: distended, tenderness - Extremities Exam Extremities exam: Present: warm, radial pulses palpable and symetrical. Absent : calf tenderness, cyanotic, pedal edema - Neurological Exam Neurological exam: Present: CN II-XII intact, oriented X3, no focal deficits. Absent: pronater drift, facial droop, speech deficit - Skin Skin exam: Present: dry, intact Internal Medicine: Result - Labs CBC & Chem 7: 12/10/16 05:20 12/10/16 05:20 Labs: Short CBC 12/10/16 Range/Units 05:20 WBC 5.5 (4.3-11.1) K/mcL Hgb 11.9 L (12.9-16.9) g/dL Hct 35.2 L (37.5-50.1) % Plt Count 219 (140-400) K/mcL Neutrophils # 3.1 (1.6-8.9) K/mcL BMP 12/10/16 05:20 Sodium 137 Potassium 4.4 Chloride 103 Carbon Dioxide 24 BUN 11 Creatinine 1.10 Glucose 240 H Calcium 9.2 Liver Function 12/10/16 Range/Units 05:20 Total Bilirubin 0.6 (0.2-1.2) mg/dL AST 53 H (5-34) Units/L ALT 89 H (0-55) Units/L Alkaline Phosphatase 132 H (38-126) Units/L Albumin 3.0 L (3.5-5.0) g/dL - ABG Interpretation ABG results: PT/INR, D-dimer PT 14.4 Seconds (9.4-12.1) H 12/10/16 05:20 Consult Discharge Plan - Plan Instructions: Heart Failure (DC), Atrial Fibrillation (DC), Diabetes Mellitus Type 2 in Adults (DC), Pneumonia (DC) Additional Instructions: Follow-up appointments: If there is not an appointment listed below, please call your physician and schedule a follow-up appointment. If you have congestive heart failure and your symptoms return, make an appointment with your physician. Symptoms: If your condition changes or you experience any of the following symptoms, notify your physician immediately: Unusual or worsening pain, fever, persistent nausea and vomiting, bleeding, increase in swelling (especially in your legs), sudden weight gain, extreme dizziness, chest pain, increased drainage or redness from a wound or incision. Go to the emergency department if you experience a problem with breathing. Weights: If you have a history of swelling or shortness of breath, weigh yourself daily and notify your physician if you have a weight gain of two or more pounds in one day or 5 or more pounds in a week. If you experience any of the warning signs for stroke: Sudden numbness or weakness of the face, arm or leg; especially on one side of the body, sudden confusion, trouble speaking or understanding, sudden trouble seeing in one or both eyes, sudden trouble walking, dizziness, loss of balance or coordination, sudden sever headache with no cause; Call 911 or go to the emergency room. Stroke is a medical emergency. Some risk factors for stroke: Age, cigarette smoking, diabetes, excessive alcohol consumption, family history , high blood pressure, overweight, physical inactivity, prior stroke, heart attack, diagnosis of carotid artery stenosis or other artery disease. If you smoke, STOP: Smoking or tobacco use significantly increases your risk of heart and lung disease. Your chance of disease greatly increases if you continue to smoke. For more information, call the [place] tobacco quit line for smoking cessation -NOW ( ) Referrals: Moustapha Gallegos MD [Primary Care Provider] - 12/27/16 8:30 am Senthil Mack CNP [Advanced Practice Nurse] - 12/27/16 8:30 am
[2016-12-10] MEDS ORDERED: *HR* Warfarin 4 MG TABLET PO ONE (18:00)
[2016-12-11] MEDS: GuaiFENesin/Codeine Oral Soln 5 ML UDC PO SCH ×3 (02:45→11:21)
[2016-12-11] MEDS: Ipratropium/Albuterol Neb 3 ML IH SCH ×2 (05:19→11:02)
[2016-12-11 06:22] LABS: Basophils % 0.7 %; Eosinophils # 0.2 K/mcL (0.0-0.6); Eosinophils % 2.6 %; Hematocrit 34.8 % (37.5-50.1); Hemoglobin 11.8 g/dL (12.9-16.9); Immature Granulocytes % 2.6 % (0-4); Lymphocytes # 1.4 K/mcL (0.6-4.6); Lymphocytes % 24.3 %; Mean Corpuscular HGB Conc 33.9 g/dL (31.6-35.5); Mean Corpuscular Hemoglobin 29.8 pg (28.0-33.3); Mean Corpuscular Volume 87.9 fL (83.0-100.0); Mean Platelet Volume 9.9 fL (9.4-12.4); Monocytes # 0.5 K/mcL (0.0-1.3); Monocytes % 8.6 %; Neutrophils # 3.5 K/mcL (1.6-8.9); Platelet Count 233 K/mcL (140-400); Red Blood Count 3.96 M/mcL (4.19-5.50); Red Cell Distribution Width 13.1 % (11.5-14.5); Segmented Neutrophils % 61.2 %
[2016-12-11 06:25] LABS: INR 1.3; Prothrombin Time 14.5 Seconds (9.4-12.1)
[2016-12-11] MEDS: Levothyroxine 25 MCG TABLET PO SCH (06:30)
[2016-12-11] MEDS: *HR* Enoxaparin 120 MG/0.8 ML SYRINGE SQ SCH (06:30)
[2016-12-11 06:45] LABS: Alanine Aminotransferase 80 Units/L (0-55); Albumin 2.9 g/dL (3.5-5.0); Albumin/Globulin Ratio 0.8 (1.1-2.2); Alkaline Phosphatase 130 Units/L (38-126); Aspartate Amino Transferase 44 Units/L (5-34); BUN/Creatinine Ratio 12 (6-26); Bilirubin,Total 0.4 mg/dL (0.2-1.2); Blood Urea Nitrogen 14 mg/dL (8-26); Calcium 9.1 mg/dL (8.6-10.8); Carbon Dioxide 25 mEq/L (19-29); Chloride 104 mEq/L (98-109); Globulin 3.7 g/dL (2.4-3.5); Glucose 238 mg/dL (70-99); Osmolality,Calculated 292 (280-300); Potassium 4.4 mEq/L (3.5-4.5); Sodium 137 mEq/L (136-145); Total Protein 6.6 g/dL (6.0-8.3); eGFR For African Americans > 60 (> 60); eGFR For Non-African Americans 59 (> 60)
[2016-12-11] MEDS: Aspirin 325 MG TABLET PO SCH (07:55)
[2016-12-11] MEDS: Insulin LISPRO 300 UNITS/3 ML VIAL SQ SCH ×2 (07:55→11:21)
[2016-12-11] MEDS: Finasteride 5 MG TABLET PO SCH (07:56)
[2016-12-11] MEDS: Isosorbide MONOnitrate (24 HR) 60 MG TAB.ER.24H PO SCH (07:56)
[2016-12-11] MEDS: DHA PO SCH (07:56)
[2016-12-11] MEDS: OMEGA PO SCH (07:56)
[2016-12-11] MEDS: EPA PO SCH (07:56)
[2016-12-11] MEDS: FISH OIL PO SCH (07:56)
[2016-12-11] MEDS: Benzonatate 100 MG CAPSULE PO SCH (07:57)
[2016-12-11] MEDS ORDERED: levoFLOXacin 750 MG TABLET PO SCH (09:00)
[2016-12-11] MEDS ORDERED: *HR* Warfarin 4 MG TABLET PO ONE (12:07)
--- NOTE | 2016-12-11 14:19 | Discharge Summary ---
<Gaston Tejedassevy Wang Alve - Last Filed: 12/11/16 17:51> Date of Encounter: 12/11/16 Time of Encounter: 12:05 - Discharge Diagnosis (1) Pneumonia Priority: Primary Status: Resolved Comments: Patient improved clinically Levaquin was given x 7 days Will discharge to home with tessalon pearls for mild cough due to reactive airway Patient instructed to return if symptoms worsen or fail to improve Qualifiers: Pneumonia type: due to unspecified organism Laterality: bilateral Lung location: lower lobe of lung Qualified Code(s): J18.9 - Pneumonia, unspecified organism (2) A-fib Priority: Secondary Status: Acute Comments: Continue coumadin 8mg, INR 1.3 Will make referral to referral to coumdin clinic for further management Patient currently on atenolol Qualifiers: Atrial fibrillation type: paroxysmal Qualified Code(s): I48.0 - Paroxysmal atrial fibrillation (3) Failure of outpatient treatment Priority: Secondary Status: Resolved - Discharge Medications Prescriptions: Benzonatate [Tessalon] 200 mg PO TID 14 Days Warfarin [Coumadin] 8 mg PO 1800 #60 tablet Home Medications: Aspirin 325 mg PO DAILY 02/29/16 [History] Atenolol [Tenormin] 25 mg PO DAILY 02/29/16 [History] Atorvastatin [Lipitor] 40 mg PO DAILY 02/29/16 [History] Ferrous Sulfate 325 mg PO DAILY 02/29/16 [History] Finasteride [Proscar] 5 mg PO DAILY 02/29/16 [History] Glucosamine HCl/Chondr Lee A Na [[facility] Glucosamine-Chondr Tablet] 1 tab PO BID 01/11 [History] Isosorbide MONOnitrate [Isosorbide Mononitrate ER] 120 mg PO DAILY 02/29/16 [ History] Lansoprazole [Prevacid] 30 mg GTUBE QAM capsule. 02/29/16 [Rx] Levothyroxine [Synthroid] 25 mcg PO DAILY 02/29/16 [History] Metformin HCl [Glucophage] 1,000 mg PO BID 02/29/16 [History] Nitroglycerin [Nitrostat] 0.4 mg SL AD PRN 02/29/16 [History] Tingley-3/Dha/Epa/Fish Oil [[facility] Fish Oil 1,000 mg Softgel] 1,000 mg PO BID [History] Tamsulosin [Flomax] 0.4 mg PO DAILY 02/29/16 [History] Benzonatate [Tessalon] 200 mg PO TID 14 Days 12/11/16 [Rx] Warfarin [Coumadin] 8 mg PO 1800 #60 tablet 12/11/16 [Rx] Allergies/Adverse Reactions: Allergies No Known Allergies Allergy (Verified 12/05/16 13:00) Date of admission: 12/06/16 14:21 Primary care physician: Moustapha Gallegos MD Consults: Coumadin clinic Discharging clinician: Yaya Arias Anticipated date of discharge: 12/11/16 - Patient Status Disposition: Home, Self-Care Condition: Fair Overall status at discharge: patient is progressing back to baseline - Discharge Instructions Instructions: Benzonatate (By mouth), Warfarin (By mouth), Heart Failure (DC), Atrial Fibrillation (DC), Diabetes Mellitus Type 2 in Adults (DC), Vitamin K in Foods (DC), Vitamin K in Foods (GEN), Pneumonia (DC) Follow Up With: Moustapha Gallegos MD [Primary Care Provider] - 12/27/16 8:30 am Senthil Mack CNP [Advanced Practice Nurse] - 12/27/16 8:30 am Additional Instructions: Follow-up appointments: If there is not an appointment listed below, please call your physician and schedule a follow-up appointment. If you have congestive heart failure and your symptoms return, make an appointment with your physician. Symptoms: If your condition changes or you experience any of the following symptoms, notify your physician immediately: Unusual or worsening pain, fever, persistent nausea and vomiting, bleeding, increase in swelling (especially in your legs), sudden weight gain, extreme dizziness, chest pain, increased drainage or redness from a wound or incision. Go to the emergency department if you experience a problem with breathing. Weights: If you have a history of swelling or shortness of breath, weigh yourself daily and notify your physician if you have a weight gain of two or more pounds in one day or 5 or more pounds in a week. If you experience any of the warning signs for stroke: Sudden numbness or weakness of the face, arm or leg; especially on one side of the body, sudden confusion, trouble speaking or understanding, sudden trouble seeing in one or both eyes, sudden trouble walking, dizziness, loss of balance or coordination, sudden sever headache with no cause; Call 911 or go to the emergency room. Stroke is a medical emergency. Some risk factors for stroke: Age, cigarette smoking, diabetes, excessive alcohol consumption, family history , high blood pressure, overweight, physical inactivity, prior stroke, heart attack, diagnosis of carotid artery stenosis or other artery disease. If you smoke, STOP: Smoking or tobacco use significantly increases your risk of heart and lung disease. Your chance of disease greatly increases if you continue to smoke. For more information, call the [place] tobacco quit line for smoking cessation QUIT-NOW ( ) - Diet and Activity Activity: increase activity as tolerated Diet: advance to your usual diet Hospital course: Mr. Altamirano is a 81 year old male who presented to the hospital with history of CAP that failed 3 courses of outpatient antibiotics (azithromycin). Patient had complaint of worsening cough and dyspnea upon admission. CT demonstrated patchy infiltrates of either multifocal pneumonia or inflammatory process. He was treated with 750mg Levaquin for 7 days. He is clinically improved, but does have a mild non-productive cough due to reactive airway. Patient was found to have paroxysmal afib on EKG during hospital stay. His INR is 1.3 at this time. He will be discharged on coumadin 8mg q day and follow up with outpatient coumadin clinic. - Time Spent with Patient Total time spent providing and/or coordinating discharge services: Less than 30 minutes - Constitutional Vitals: Temp Pulse Resp BP Pulse Ox 97.7 F 60 16 127/61 98 12/11/16 11:02 12/11/16 11:02 12/11/16 11:02 12/11/16 11:02 12/11/16 11:02 General appearance: Present: A&O X 3, pleasant, obese, answers questions appropriately - Head Head exam: Present: atraumatic, normal inspection, normocephalic - Eye Eye exam: Present: EOMI, PERRL - ENT ENT exam: Present: mucous membranes moist - Neck Neck exam general surgery: Present: full ROM, normal inspection - Respiratory Respiratory exam: Present: CTAB. Absent: rhonchi, wheezes Additional comments: mild non-productive cough noted during exam - Cardiovascular Cardiovascular exam: Present: irregular rhythm - GI/Abdominal GI/Abdominal exam: Present: normal bowel sounds, soft. Absent: hepatomegaly, splenomegaly, tenderness - Extremities Exam Extremities exam: Present: warm. Absent: pedal edema, tenderness - Neurological Exam Neurological exam: Present: CN II-XII intact, oriented X3. Absent: facial droop , speech deficit - Psychiatric Psychiatric exam: Present: normal affect, normal mood - Skin Skin exam: Present: dry, warm <Juana,Yaya P - Last Filed: 12/11/16 18:09> Date of Encounter: 12/11/16 - Discharge Diagnosis (1) Pneumonia Status: Resolved Qualifiers: Pneumonia type: due to unspecified organism Laterality: bilateral Lung location: lower lobe of lung Qualified Code(s): J18.9 - Pneumonia, unspecified organism (2) A-fib Status: Acute Qualifiers: Atrial fibrillation type: paroxysmal Qualified Code(s): I48.0 - Paroxysmal atrial fibrillation (3) Failure of outpatient treatment Status: Resolved (4) DVT prophylaxis Status: Acute Date of admission: 12/06/16 14:21 Primary care physician: Moustapha Gallegos MD Hospital course: Mr. Altamirano is a 81 year old male - Time Spent with Patient Total time spent providing and/or coordinating discharge services: - Constitutional Vitals: Temp Pulse Resp BP Pulse Ox 98.2 F 78 16 135/75 98 12/11/16 14:23 12/11/16 14:23 12/11/16 14:23 12/11/16 14:23 12/11/16 14:23 - Attending Attestation I examined this patient and my medical decision-making was reviewed with the [facility] MANAGER/PA/Advanced Practice Nurse/Resident Physician. I agree with the documented findings, disposition and treatment plan as described except to the extent set forth below. discussed with cardiology and it is OK to d/c patient even if his INR is not therapeutic (Dr Jaramlilo)
[2016-12-11 14:26] VITALS: BP 135/75
[2016-12-11] MEDS ORDERED: *HR* Enoxaparin 100 MG/ML SYRINGE SQ SCH (18:00)
== END 2016-12-11 16:36 | disposition home or self-care (01) | DRG 195 ==
LOC: 2NENU 10:20 → EMEROO 10:20 → 2NENU 15:43
PROVIDERS: ADMIT Family Medicine; ATTEND Internal Medicine

== ENCOUNTER 2019-10-27 08:49 | Inpatient (IN) ==
[2019-10-27] MEDS ORDERED: methylPREDNISolone 125 MG/2 ML VIAL IVP ONE (09:13)
[2019-10-27] MEDS ORDERED: Isovue-370 500 ML BOTTLE IVP ONE (09:13)
[2019-10-27] MEDS ORDERED: Ipratropium/Albuterol Neb 3 ML IH ONE (09:13)
[2019-10-27 09:34] LABS: Basophils % 0.3 %; Hematocrit 38.9 % (37.5-50.1); Hemoglobin 13.8 g/dL (12.9-16.9); Immature Granulocytes % 0.3 % (0-4); Lymphocytes # 1.1 K/mcL (0.6-4.6); Lymphocytes % 17.2 %; Mean Corpuscular HGB Conc 35.5 g/dL (31.6-35.5); Mean Corpuscular Hemoglobin 31.2 pg (28.0-33.3); Mean Corpuscular Volume 87.8 fL (83.0-100.0); Mean Platelet Volume 9.7 fL (9.4-12.4); Monocytes # 0.6 K/mcL (0.0-1.3); Monocytes % 9.6 %; Neutrophils # 4.4 K/mcL (1.6-8.9); Platelet Count 182 K/mcL (140-400); Red Blood Count 4.43 M/mcL (4.19-5.50); Red Cell Distribution Width 13.8 % (11.5-14.5); Segmented Neutrophils % 72.6 %; White Blood Count 6.1 K/mcL (4.3-11.1)
[2019-10-27 09:36] LABS: INR 1.4; Prothrombin Time 15.7 Seconds (9.4-12.1)
[2019-10-27 09:56] LABS: BUN/Creatinine Ratio 16 (6-26); Blood Urea Nitrogen 17 mg/dL (8-23); Calcium 9.1 mg/dL (8.6-10.3); Carbon Dioxide 29 mEq/L (23-29); Chloride 95 mEq/L (98-107); Glucose 213 mg/dL (70-105); Osmolality,Calculated 288 (280-300); Potassium 4.2 mEq/L (3.5-5.1); Sodium 135 mEq/L (136-145); eGFR For African Americans > 60 (> 60); eGFR For Non-African Americans > 60 (> 60)
[2019-10-27] MEDS ORDERED: *HR* Enoxaparin 100 MG/ML SYRINGE SQ STA (09:56)
[2019-10-27 10:03] LABS: Troponin I 0.04 ng/mL (< 0.04)
[2019-10-27 11:19] LABS: ABG Base Excess 4 mEq/L (-2 to 3); ABG HCO3 29 mEq/L (21-27); ABG Oxygen Saturation 93 % (95-98); ABG PCO2 49 mmHg (35-45); ABG PH 7.39 pH Units (7.32-7.45); ABG PO2 67 mmHg (85-104); ABG TCO2 31 mEq/L (20-26)
[2019-10-27] MEDS ORDERED: Piperacillin/Tazobactam 3.375 GM in 0.9 % Sodium Chloride Mini Bag 100 ML IVPB ONE (11:46)
[2019-10-27] MEDS ORDERED: Lidocaine -MPF 2% 2 ML VIAL ONE ×2 (12:43→12:53)
[2019-10-27] MEDS ORDERED: *HR* Propofol 200 MG/20 ML VIAL IVP ONE ×2 (12:43→12:58)
[2019-10-27] MEDS ORDERED: *HR* Rocuronium Bromide 50 MG/5 ML VIAL ONE (12:43)
[2019-10-27] MEDS ORDERED: Ondansetron 4 MG/2 ML VIAL ONE (12:43)
[2019-10-27] MEDS ORDERED: Lidocaine -MPF 4% 5 ML AMPUL ONE (12:43)
[2019-10-27] MEDS ORDERED: Dexamethasone 4 MG/ML VIAL ONE (12:43)
[2019-10-27] MEDS ORDERED: *HR* Succinylcholine 200 MG/10 ML VIAL IVP ONE (12:43)
[2019-10-27] MEDS ORDERED: *HR* FentaNYL (PF) 100 MCG/2 ML VIAL ONE (12:43)
[2019-10-27] MEDS ORDERED: Aminoglycoside Consult 1 EACH MC ONE (12:44)
[2019-10-27] MEDS ORDERED: Albuterol 2.5 MG/3 ML NEBULIZER ONE (13:47)
[2019-10-27] MEDS ORDERED: Ondansetron 4 MG/2 ML VIAL IVP PRN (13:56)
[2019-10-27] MEDS ORDERED: Naloxone 0.4 MG/ML INJ IVP PRN (13:56)
[2019-10-27] MEDS ORDERED: Ipratropium/Albuterol Neb 3 ML IH PRN (14:01)
[2019-10-27] MEDS ORDERED: Dextrose Gel 15 GM/37.5 ML TUBE PO PRN ×2 (14:02)
[2019-10-27] MEDS ORDERED: *HR* Dextrose 50 % in Water (Syg) 50 ML SYRINGE IVP PRN (14:02)
[2019-10-27] MEDS ORDERED: D5% in Water 1,000 ML IVC PRN (14:02)
[2019-10-27 14:19] LABS: Source of Body Fluid BAl rt lower lobe; Source of Body Fluid bal left upper lobe; Source of Body Fluid bal lt lower lobe
[2019-10-27] MEDS: 0.9 % Sodium Chloride 1,000 ML IVC SCH ×2 (15:36→17:18)
[2019-10-27] MEDS: Ipratropium/Albuterol Neb 3 ML IH SCH ×2 (16:54→20:57)
[2019-10-27] MEDS: GuaiFENesin/Codeine Oral Soln 5 ML UDC PO PRN (17:33)
[2019-10-27] MEDS: Insulin LISPRO 300 UNITS/3 ML VIAL SQ SCH ×2 (17:34→20:06)
[2019-10-27] MEDS: Piperacillin/Tazobactam 3.375 GM in 0.9 % Sodium Chloride Mini Bag 100 ML IVPB SCH ×2 (17:37→23:08)
[2019-10-27] MEDS: MethylPREDNISolone 40 MG/ML VIAL IVP SCH ×2 (17:41→23:08)
[2019-10-27] MEDS: Doxycycline 100 MG in 0.9 % Sodium Chloride Mini Bag 100 ML IVPB SCH (17:45)
[2019-10-27 18:56] LABS: Appearance of Body Fluid Cloudy (Clear); Volume of Body Fluid 7 mL
[2019-10-27 19:04] LABS: Appearance of Body Fluid Cloudy (Clear); Volume of Body Fluid 14 mL
[2019-10-27 20:34] LABS: Appearance of Body Fluid Cloudy (Clear); Volume of Body Fluid 15 mL
[2019-10-27] MEDS ORDERED: Insulin Human Regular 10 UNIT in 0.9 % Sodium Chloride 10 ML IV ONE (23:31)
[2019-10-28] MEDS ORDERED: *HR* Metoprolol 5 MG/5 ML VIAL IVP ONE (01:16)
[2019-10-28] MEDS ORDERED: Insulin Human Regular 10 UNIT in 0.9 % Sodium Chloride 10 ML IV ONE (03:30)
[2019-10-28] MEDS: 0.9 % Sodium Chloride 1,000 ML IVC SCH ×2 (03:42→12:44)
[2019-10-28] MEDS: Ipratropium/Albuterol Neb 3 ML IH SCH ×4 (03:49→22:21)
[2019-10-28] MEDS: Doxycycline 100 MG in 0.9 % Sodium Chloride Mini Bag 100 ML IVPB SCH (05:40)
[2019-10-28] MEDS: Piperacillin/Tazobactam 3.375 GM in 0.9 % Sodium Chloride Mini Bag 100 ML IVPB SCH ×3 (09:54→20:37)
[2019-10-28] MEDS: Insulin LISPRO 300 UNITS/3 ML VIAL SQ SCH ×4 (09:55→20:38)
[2019-10-28] MEDS: MethylPREDNISolone 40 MG/ML VIAL IVP SCH ×2 (09:55→17:28)
[2019-10-28 10:09] LABS: Immature Granulocytes % 0.4 % (0-4); Lymphocytes # 0.3 K/mcL (0.6-4.6); Lymphocytes % 6.2 %; Mean Corpuscular HGB Conc 35.3 g/dL (31.6-35.5); Mean Corpuscular Volume 87.9 fL (83.0-100.0); Mean Platelet Volume 10.2 fL (9.4-12.4); Monocytes # 0.2 K/mcL (0.0-1.3); Monocytes % 4.3 %; Neutrophils # 4.2 K/mcL (1.6-8.9); Platelet Count 143 K/mcL (140-400); Red Blood Count 3.64 M/mcL (4.19-5.50); Red Cell Distribution Width 13.7 % (11.5-14.5); Segmented Neutrophils % 89.1 %; White Blood Count 4.7 K/mcL (4.3-11.1)
[2019-10-28 10:25] LABS: BUN/Creatinine Ratio 21 (6-26); Blood Urea Nitrogen 24 mg/dL (8-23); Calcium 8.3 mg/dL (8.6-10.3); Carbon Dioxide 25 mEq/L (23-29); Chloride 101 mEq/L (98-107); Glucose 373 mg/dL (70-105); Osmolality,Calculated 299 (280-300); Potassium 4.2 mEq/L (3.5-5.1); Sodium 135 mEq/L (136-145); eGFR For African Americans > 60 (> 60); eGFR For Non-African Americans > 60 (> 60)
[2019-10-28 10:28] LABS: Hemoglobin 11.3 g/dL (12.9-16.9)
[2019-10-28 10:46] LABS: Estimated Average Glucose 151 mg/dl
[2019-10-28 10:58] LABS: Platelet Estimate Normal (Normal)
[2019-10-28] MEDS: Azithromycin 500 MG in 0.9 % Sodium Chloride 250 ML IVPB SCH (17:28)
[2019-10-28] MEDS: Gabapentin 300 MG CAPSULE PO SCH ×2 (17:28→20:40)
[2019-10-28] MEDS: GuaiFENesin/Codeine Oral Soln 5 ML UDC PO PRN (20:40)
[2019-10-29] MEDS: MethylPREDNISolone 40 MG/ML VIAL IVP SCH ×3 (00:35→17:38)
[2019-10-29] MEDS: Ipratropium/Albuterol Neb 3 ML IH SCH ×4 (03:45→22:56)
[2019-10-29] MEDS: Piperacillin/Tazobactam 3.375 GM in 0.9 % Sodium Chloride Mini Bag 100 ML IVPB SCH ×3 (04:57→20:46)
[2019-10-29 06:11] LABS: Hematocrit 35.6 % (37.5-50.1); Hemoglobin 12.4 g/dL (12.9-16.9); Mean Corpuscular HGB Conc 34.8 g/dL (31.6-35.5); Mean Corpuscular Hemoglobin 31.2 pg (28.0-33.3); Mean Corpuscular Volume 89.4 fL (83.0-100.0); Mean Platelet Volume 10.2 fL (9.4-12.4); Platelet Count 167 K/mcL (140-400); Red Blood Count 3.98 M/mcL (4.19-5.50); Red Cell Distribution Width 13.9 % (11.5-14.5)
[2019-10-29 06:13] LABS: White Blood Count 8.4 K/mcL (4.3-11.1)
[2019-10-29 06:36] LABS: BUN/Creatinine Ratio 27 (6-26); Blood Urea Nitrogen 28 mg/dL (8-23); Calcium 8.8 mg/dL (8.6-10.3); Carbon Dioxide 24 mEq/L (23-29); Chloride 103 mEq/L (98-107); Glucose 324 mg/dL (70-105); Magnesium 2.2 mg/dL (1.6-2.6); Osmolality,Calculated 304 (280-300); Potassium 4.6 mEq/L (3.5-5.1); Sodium 138 mEq/L (136-145); eGFR For African Americans > 60 (> 60); eGFR For Non-African Americans > 60 (> 60)
[2019-10-29] MEDS ORDERED: Insulin DETEMIR 100 UNIT/ML X5UNITS SQ ONE (07:51)
[2019-10-29] MEDS: Gabapentin 300 MG CAPSULE PO SCH ×3 (08:41→20:46)
[2019-10-29] MEDS: Isosorbide MONOnitrate (24 HR) 60 MG TAB.ER.24H PO SCH (08:41)
[2019-10-29] MEDS: Finasteride 5 MG TABLET PO SCH (08:41)
[2019-10-29] MEDS: Levothyroxine 25 MCG TABLET PO SCH (08:41)
[2019-10-29] MEDS: 0.9 % Sodium Chloride 1,000 ML IVC SCH (08:42)
[2019-10-29] MEDS: Insulin LISPRO 300 UNITS/3 ML VIAL SQ SCH ×4 (08:43→20:47)
[2019-10-29] MEDS: Azithromycin 500 MG in 0.9 % Sodium Chloride 250 ML IVPB SCH (17:38)
[2019-10-29] MEDS ORDERED: Insulin DETEMIR 100 UNIT/ML X5UNITS SQ SCH (21:00)
[2019-10-30 00:30] LABS: Adenovirus Not Detected (Not Detect); Bordetella Pertussis Not Detected (Not Detect); Chlamydophila pneumoniae Not Detected (Not Detect); Coronavirus 229E Not Detected (Not Detect); Coronavirus HKU1 Not Detected (Not Detect); Coronavirus NL63 Not Detected (Not Detect); Coronavirus OC43 Not Detected (Not Detect); Human Metapneumovirus DETECTED (Not Detect); Human Rhinovirus/Enterovirus Not Detected (Not Detect); Influenza A Subtype 2009 H1 Not Detected (Not Detect); Influenza B Not Detected (Not Detect); Mycoplasma pneumoniae Not Detected (Not Detect); Parainfluenza Virus 1 Not Detected (Not Detect); Parainfluenza Virus 2 Not Detected (Not Detect); Parainfluenza Virus 3 Not Detected (Not Detect); Parainfluenza Virus 4 Not Detected (Not Detect); Respiratory Syncytial Virus Not Detected (Not Detect)
[2019-10-30] MEDS: GuaiFENesin/Codeine Oral Soln 5 ML UDC PO PRN (01:25)
[2019-10-30 02:10] LABS: Hematocrit 33.3 % (37.5-50.1); Hemoglobin 11.4 g/dL (12.9-16.9); Mean Corpuscular HGB Conc 34.2 g/dL (31.6-35.5); Mean Corpuscular Hemoglobin 30.9 pg (28.0-33.3); Mean Corpuscular Volume 90.2 fL (83.0-100.0); Mean Platelet Volume 10.6 fL (9.4-12.4); Platelet Count 170 K/mcL (140-400); Red Blood Count 3.69 M/mcL (4.19-5.50); Red Cell Distribution Width 13.8 % (11.5-14.5); White Blood Count 7.9 K/mcL (4.3-11.1)
[2019-10-30 02:30] LABS: BUN/Creatinine Ratio 26 (6-26); Blood Urea Nitrogen 33 mg/dL (8-23); Calcium 8.5 mg/dL (8.6-10.3); Carbon Dioxide 24 mEq/L (23-29); Chloride 105 mEq/L (98-107); Glucose 329 mg/dL (70-105); Osmolality,Calculated 300 (280-300); Potassium 4.2 mEq/L (3.5-5.1); Sodium 135 mEq/L (136-145); eGFR For African Americans > 60 (> 60); eGFR For Non-African Americans 53 (> 60)
[2019-10-30] MEDS: Ipratropium/Albuterol Neb 3 ML IH SCH ×4 (02:57→21:41)
[2019-10-30] MEDS: Piperacillin/Tazobactam 3.375 GM in 0.9 % Sodium Chloride Mini Bag 100 ML IVPB SCH ×2 (03:25→11:26)
[2019-10-30] MEDS: MethylPREDNISolone 40 MG/ML VIAL IVP SCH ×2 (06:20→17:54)
[2019-10-30] MEDS: Insulin LISPRO 300 UNITS/3 ML VIAL SQ SCH ×4 (07:56→20:00)
[2019-10-30] MEDS: Isosorbide MONOnitrate (24 HR) 60 MG TAB.ER.24H PO SCH (07:57)
[2019-10-30] MEDS: Finasteride 5 MG TABLET PO SCH (07:57)
[2019-10-30] MEDS: Gabapentin 300 MG CAPSULE PO SCH ×3 (07:57→20:00)
[2019-10-30] MEDS: Levothyroxine 25 MCG TABLET PO SCH (07:57)
[2019-10-30 09:34] LABS: Influenza A PCR Body Fluid NOT DETECTED; Influenza B PCR Body Fluid NOT DETECTED; RVP Body Fluid Source BAL
[2019-10-30 11:28] LABS: RSV PCR Body Fluid NOT DETECTED
[2019-10-30 12:19] LABS: HSV Source BAL LLL; HSV Source BAL LUL; HSV Source BAL RLL
[2019-10-30] MEDS ORDERED: Insulin Regular, Human 100 UNIT/ML SQ ONE ×2 (15:48→16:15)
[2019-10-30] MEDS: cefTRIAXone 2,000 MG in Water for inj. (sterile) 20 ML IVPB SCH (16:50)
[2019-10-30] MEDS: Azithromycin 500 MG in 0.9 % Sodium Chloride 250 ML IVPB SCH (16:51)
[2019-10-30] MEDS ORDERED: *HR* Warfarin 10 MG TABLET PO ONE (18:00)
[2019-10-30] MEDS ORDERED: Warfarin perPT PO PRN (18:00)
[2019-10-30] MEDS: Insulin DETEMIR 100 UNIT/ML X5UNITS SQ SCH (20:00)
[2019-10-30] MEDS ORDERED: *HR* Labetalol 20 MG/4 ML SYRINGE IVP ONE (23:11)
[2019-10-31] MEDS ORDERED: *HR* Labetalol 20 MG/4 ML SYRINGE IVP ONE ×2 (01:33→21:35)
[2019-10-31 01:42] LABS: INR 1.3
[2019-10-31 01:43] LABS: Mean Corpuscular HGB Conc 34.5 g/dL (31.6-35.5); Red Cell Distribution Width 13.5 % (11.5-14.5)
[2019-10-31 02:00] LABS: Hematocrit 32.5 % (37.5-50.1); Hemoglobin 11.2 g/dL (12.9-16.9); Mean Corpuscular Hemoglobin 31.6 pg (28.0-33.3); Mean Corpuscular Volume 91.8 fL (83.0-100.0); Mean Platelet Volume 10.1 fL (9.4-12.4); Platelet Count 183 K/mcL (140-400); Red Blood Count 3.54 M/mcL (4.19-5.50); White Blood Count 6.9 K/mcL (4.3-11.1)
[2019-10-31 02:05] LABS: BUN/Creatinine Ratio 24 (6-26); Blood Urea Nitrogen 28 mg/dL (8-23); Calcium 8.9 mg/dL (8.6-10.3); Carbon Dioxide 28 mEq/L (23-29); Chloride 108 mEq/L (98-107); Glucose 199 mg/dL (70-105); Osmolality,Calculated 295 (280-300); Potassium 4.5 mEq/L (3.5-5.1); Sodium 137 mEq/L (136-145); eGFR For African Americans > 60 (> 60); eGFR For Non-African Americans > 60 (> 60)
[2019-10-31] MEDS ORDERED: *HR* Metoprolol 5 MG/5 ML VIAL IVP ONE (03:06)
[2019-10-31] MEDS: Ipratropium/Albuterol Neb 3 ML IH SCH ×4 (04:00→20:56)
[2019-10-31] MEDS: predniSONE 20 MG TABLET PO SCH (07:49)
[2019-10-31] MEDS: Isosorbide MONOnitrate (24 HR) 60 MG TAB.ER.24H PO SCH (07:49)
[2019-10-31] MEDS: Finasteride 5 MG TABLET PO SCH (07:49)
[2019-10-31] MEDS: Gabapentin 300 MG CAPSULE PO SCH ×3 (07:49→19:57)
[2019-10-31] MEDS: Levothyroxine 25 MCG TABLET PO SCH (07:50)
[2019-10-31] MEDS: cefTRIAXone 2,000 MG in Water for inj. (sterile) 20 ML IVPB SCH (07:50)
[2019-10-31] MEDS: Insulin LISPRO 300 UNITS/3 ML VIAL SQ SCH ×4 (07:52→20:14)
[2019-10-31] MEDS: amLODIPine 5 MG TABLET PO SCH (09:35)
[2019-10-31 10:36] LABS: Influenza A PCR Body Fluid NOT DETECTED; Influenza B PCR Body Fluid NOT DETECTED; RVP Body Fluid Source BAL
[2019-10-31 11:29] LABS: RSV PCR Body Fluid NOT DETECTED
[2019-10-31] MEDS: Azithromycin 500 MG in 0.9 % Sodium Chloride 250 ML IVPB SCH (15:51)
[2019-10-31] MEDS ORDERED: *HR* Warfarin 7.5 MG TABLET PO ONE (18:00)
[2019-10-31] MEDS: Insulin DETEMIR 100 UNIT/ML X5UNITS SQ SCH (19:57)
[2019-11-01] MEDS ORDERED: *HR* Metoprolol 5 MG/5 ML VIAL IVP ONE (03:25)
[2019-11-01 04:05] LABS: Hematocrit 35.3 % (37.5-50.1); Hemoglobin 11.8 g/dL (12.9-16.9); Mean Corpuscular HGB Conc 33.4 g/dL (31.6-35.5); Mean Corpuscular Hemoglobin 31.1 pg (28.0-33.3); Mean Corpuscular Volume 93.1 fL (83.0-100.0); Platelet Count 204 K/mcL (140-400); Red Blood Count 3.79 M/mcL (4.19-5.50); Red Cell Distribution Width 13.7 % (11.5-14.5); White Blood Count 6.2 K/mcL (4.3-11.1)
[2019-11-01 04:09] LABS: INR 1.5
[2019-11-01 04:20] LABS: BUN/Creatinine Ratio 26 (6-26); Blood Urea Nitrogen 30 mg/dL (8-23); Calcium 9.1 mg/dL (8.6-10.3); Carbon Dioxide 30 mEq/L (23-29); Chloride 103 mEq/L (98-107); Glucose 159 mg/dL (70-105); Osmolality,Calculated 306 (280-300); Potassium 4.1 mEq/L (3.5-5.1); Sodium 143 mEq/L (136-145); eGFR For African Americans > 60 (> 60); eGFR For Non-African Americans > 60 (> 60)
[2019-11-01] MEDS: Ipratropium/Albuterol Neb 3 ML IH SCH ×2 (04:55→10:25)
[2019-11-01] MEDS: Insulin LISPRO 300 UNITS/3 ML VIAL SQ SCH ×2 (08:17→11:43)
[2019-11-01] MEDS ORDERED: amLODIPine 5 MG TABLET PO ONE (08:26)
[2019-11-01] MEDS: Levothyroxine 25 MCG TABLET PO SCH (08:31)
[2019-11-01] MEDS: Finasteride 5 MG TABLET PO SCH (08:31)
[2019-11-01] MEDS: Gabapentin 300 MG CAPSULE PO SCH (08:31)
[2019-11-01] MEDS: predniSONE 20 MG TABLET PO SCH (08:31)
[2019-11-01] MEDS: cefTRIAXone 2,000 MG in Water for inj. (sterile) 20 ML IVPB SCH (08:32)
[2019-11-01] MEDS: Isosorbide MONOnitrate (24 HR) 60 MG TAB.ER.24H PO SCH (08:32)
[2019-11-01] MEDS ORDERED: amLODIPine 5 MG TABLET PO SCH (09:00)
[2019-11-01 10:45] LABS: Influenza A PCR Body Fluid NOT DETECTED; Influenza B PCR Body Fluid NOT DETECTED; RVP Body Fluid Source BAL
[2019-11-01 11:09] VITALS: BP 151/80
[2019-11-01] MEDS: amLODIPine 5 MG TABLET PO SCH (11:43)
[2019-11-02 08:43] LABS: RSV PCR Body Fluid NOT DETECTED
[2019-11-02] MEDS ORDERED: amLODIPine 5 MG TABLET PO SCH (09:00)
== END 2019-11-01 12:45 | disposition home or self-care (01) | DRG 177 ==
LOC: EMEROOARM 08:49 → CDU 08:49 → SUATTDRO 12:39 → CDU 13:30 → SUATTDRO 13:56 → 3NENU 10-29 05:18
PROVIDERS: ADMIT Internal Medicine; ATTEND Internal Medicine

== ENCOUNTER 2020-02-12 11:10 | Inpatient (IN) ==
[2020-02-12] MEDS ORDERED: Ondansetron 4 MG/2 ML VIAL IVP ONE (11:50)
[2020-02-12] MEDS ORDERED: *HR* HYDROmorphone PF 0.5 MG/0.5 ML SYRINGE IVP PRN (11:50)
[2020-02-12] MEDS ORDERED: *HR* Promethazine 25 MG/ML VIAL IVP PRN (11:50)
[2020-02-12] MEDS ORDERED: *HR* Metoprolol 5 MG/5 ML VIAL IVP PRN (11:50)
[2020-02-12] MEDS ORDERED: Gabapentin 300 MG CAPSULE PO ONE (11:50)
[2020-02-12] MEDS ORDERED: Albuterol 2.5 MG/3 ML NEBULIZER IH PRN (11:50)
[2020-02-12] MEDS ORDERED: *HR* OxyCODONE Immed Rel 5 MG TABLET PO PRN (11:50)
[2020-02-12] MEDS ORDERED: Acetaminophen IV 1,000 MG/100 ML INFUS..BTL IVPB ONE (11:50)
[2020-02-12] MEDS ORDERED: CeFAZolin Syr 2,000MG/20 ML 2,000 MG/20 ML SYRINGE IVPB ONE (12:01)
[2020-02-12] MEDS ORDERED: Ringers Solution, Lactated 1,000 ML IVC SCH (12:15)
[2020-02-12] MEDS ORDERED: Ondansetron 4 MG/2 ML VIAL ONE (12:20)
[2020-02-12] MEDS ORDERED: Dexamethasone 4 MG/ML VIAL ONE (12:20)
[2020-02-12] MEDS ORDERED: Lidocaine -MPF 2% 2 ML VIAL ONE (12:20)
[2020-02-12] MEDS ORDERED: *HR* Rocuronium Bromide 50 MG/5 ML VIAL ONE ×2 (12:20→14:14)
[2020-02-12] MEDS ORDERED: *HR* Succinylcholine 200 MG/10 ML VIAL IVP ONE (12:20)
[2020-02-12] MEDS ORDERED: *HR* FentaNYL (PF) 100 MCG/2 ML VIAL ONE ×2 (12:20→14:03)
[2020-02-12] MEDS ORDERED: *HR* Propofol 200 MG/20 ML VIAL IVP ONE (12:20)
[2020-02-12] MEDS ORDERED: Albumin Human 5% 0 GM/0 ML IV.SOLN ONE (12:33)
[2020-02-12] MEDS: Ipratropium/Albuterol Neb 3 ML IH SCH ×3 (16:46→23:29)
[2020-02-12] MEDS: *HR* Metformin 500 MG TABLET PO SCH (16:57)
[2020-02-12] MEDS: Gabapentin 300 MG CAPSULE PO SCH ×2 (16:57→21:08)
[2020-02-12] MEDS: *HR* HYDROcodone/Acet 5/325 mg TABLET PO PRN (16:57)
[2020-02-12] MEDS: 0.9 % Sodium Chloride 1,000 ML IVC SCH (16:58)
[2020-02-12] MEDS: *HR* Heparin 5,000 UNIT/ML VIAL SQ SCH (21:08)
[2020-02-12] MEDS: Famotidine 20 MG TABLET PO SCH (21:08)
[2020-02-12] MEDS: Sennosides/Docusate Sodium TABLET PO SCH (21:08)
[2020-02-13] MEDS: Ipratropium/Albuterol Neb 3 ML IH SCH ×6 (04:15→23:17)
[2020-02-13 04:29] LABS: Hematocrit 36.9 % (37.5-50.1); Hemoglobin 12.1 g/dL (12.9-16.9); Mean Corpuscular HGB Conc 32.8 g/dL (31.6-35.5); Mean Corpuscular Hemoglobin 30.3 pg (28.0-33.3); Mean Corpuscular Volume 92.5 fL (83.0-100.0); Mean Platelet Volume 10.3 fL (9.4-12.4); Platelet Count 159 K/mcL (140-400); Red Blood Count 3.99 M/mcL (4.19-5.50); Red Cell Distribution Width 13.5 % (11.5-14.5); White Blood Count 9.2 K/mcL (4.3-11.1)
[2020-02-13 04:48] LABS: % Iron Saturation 7 % (20-55); BUN/Creatinine Ratio 21 (6-26); Blood Urea Nitrogen 24 mg/dL (8-23); Calcium 8.6 mg/dL (8.6-10.3); Carbon Dioxide 23 mEq/L (23-29); Chloride 103 mEq/L (98-107); Glucose 242 mg/dL (70-105); Iron 29 mcg/dL (65-175); Magnesium 1.9 mg/dL (1.6-2.6); Osmolality,Calculated 294 (280-300); Sodium 136 mEq/L (136-145); Transferrin 283 mg/dL (203-362); eGFR For African Americans > 60 (> 60); eGFR For Non-African Americans > 60 (> 60)
[2020-02-13] MEDS: 0.9 % Sodium Chloride 1,000 ML IVC SCH (05:34)
[2020-02-13] MEDS: *HR* Heparin 5,000 UNIT/ML VIAL SQ SCH ×3 (05:36→21:01)
[2020-02-13] MEDS: Levothyroxine 25 MCG TABLET PO SCH (05:36)
[2020-02-13] MEDS: *HR* Metformin 500 MG TABLET PO SCH ×2 (07:37→16:01)
[2020-02-13] MEDS: Aspirin Enteric Coated 81 MG Tablet PO SCH (07:37)
[2020-02-13] MEDS: Sennosides/Docusate Sodium TABLET PO SCH ×2 (07:38→21:03)
[2020-02-13] MEDS: Isosorbide MONOnitrate (24 HR) 60 MG TAB.ER.24H PO SCH (07:38)
[2020-02-13] MEDS: Famotidine 20 MG TABLET PO SCH ×2 (07:38→21:03)
[2020-02-13] MEDS: Finasteride 5 MG TABLET PO SCH (07:38)
[2020-02-13] MEDS: Gabapentin 300 MG CAPSULE PO SCH ×3 (07:38→21:03)
[2020-02-13] MEDS: *HR* GlipiZIDE XL (24 HR) 2.5 MG TABLET PO SCH (07:38)
[2020-02-13] MEDS: amLODIPine 5 MG TABLET PO SCH (07:38)
[2020-02-13] MEDS ORDERED: Iron Sucrose Complex 400 MG in 0.9 % Sodium Chloride 250 ML IVPB ONE (08:38)
[2020-02-13] MEDS: *HR* HYDROcodone/Acet 5/325 mg TABLET PO PRN ×2 (16:01→21:02)
[2020-02-14] MEDS: *HR* HYDROcodone/Acet 5/325 mg TABLET PO PRN (03:27)
[2020-02-14] MEDS: Ipratropium/Albuterol Neb 3 ML IH SCH ×5 (03:40→19:43)
[2020-02-14 05:38] LABS: BUN/Creatinine Ratio 23 (6-26); Blood Urea Nitrogen 25 mg/dL (8-23); Calcium 8.8 mg/dL (8.6-10.3); Carbon Dioxide 24 mEq/L (23-29); Chloride 101 mEq/L (98-107); Glucose 220 mg/dL (70-105); Osmolality,Calculated 285 (280-300); Potassium 4.5 mEq/L (3.5-5.1); Sodium 132 mEq/L (136-145); eGFR For African Americans > 60 (> 60); eGFR For Non-African Americans > 60 (> 60)
[2020-02-14] MEDS: *HR* Heparin 5,000 UNIT/ML VIAL SQ SCH ×3 (06:17→20:26)
[2020-02-14] MEDS: Levothyroxine 25 MCG TABLET PO SCH (06:17)
[2020-02-14] MEDS: *HR* Metformin 500 MG TABLET PO SCH ×2 (09:29→17:25)
[2020-02-14] MEDS: Sennosides/Docusate Sodium TABLET PO SCH ×2 (09:29→20:26)
[2020-02-14] MEDS: amLODIPine 5 MG TABLET PO SCH (09:30)
[2020-02-14] MEDS: Aspirin Enteric Coated 81 MG Tablet PO SCH (09:30)
[2020-02-14] MEDS: Isosorbide MONOnitrate (24 HR) 60 MG TAB.ER.24H PO SCH (09:30)
[2020-02-14] MEDS: Famotidine 20 MG TABLET PO SCH ×2 (09:30→20:26)
[2020-02-14] MEDS: Gabapentin 300 MG CAPSULE PO SCH ×3 (09:30→20:26)
[2020-02-14] MEDS: Furosemide 20 MG TABLET PO SCH (09:30)
[2020-02-14] MEDS: *HR* GlipiZIDE XL (24 HR) 2.5 MG TABLET PO SCH (09:30)
[2020-02-14] MEDS: Finasteride 5 MG TABLET PO SCH (09:30)
[2020-02-15] MEDS: Ipratropium/Albuterol Neb 3 ML IH SCH ×7 (00:18→23:28)
[2020-02-15 02:14] LABS: BUN/Creatinine Ratio 25 (6-26); Blood Urea Nitrogen 27 mg/dL (8-23); Calcium 9.4 mg/dL (8.6-10.3); Carbon Dioxide 24 mEq/L (23-29); Chloride 101 mEq/L (98-107); Glucose 197 mg/dL (70-105); Osmolality,Calculated 281 (280-300); Potassium 4.4 mEq/L (3.5-5.1); Sodium 130 mEq/L (136-145); eGFR For African Americans > 60 (> 60); eGFR For Non-African Americans > 60 (> 60)
[2020-02-15] MEDS: *HR* Heparin 5,000 UNIT/ML VIAL SQ SCH ×3 (06:22→20:34)
[2020-02-15] MEDS: Levothyroxine 25 MCG TABLET PO SCH (06:22)
[2020-02-15] MEDS: *HR* Metformin 500 MG TABLET PO SCH ×2 (08:03→17:13)
[2020-02-15] MEDS: Isosorbide MONOnitrate (24 HR) 60 MG TAB.ER.24H PO SCH (08:03)
[2020-02-15] MEDS: Finasteride 5 MG TABLET PO SCH (08:03)
[2020-02-15] MEDS: *HR* GlipiZIDE XL (24 HR) 2.5 MG TABLET PO SCH (08:03)
[2020-02-15] MEDS: Gabapentin 300 MG CAPSULE PO SCH ×3 (08:03→20:33)
[2020-02-15] MEDS: Aspirin Enteric Coated 81 MG Tablet PO SCH (08:03)
[2020-02-15] MEDS: Furosemide 20 MG TABLET PO SCH (08:04)
[2020-02-15] MEDS: amLODIPine 5 MG TABLET PO SCH (08:04)
[2020-02-15] MEDS: Famotidine 20 MG TABLET PO SCH ×2 (08:04→20:33)
[2020-02-15] MEDS: Sennosides/Docusate Sodium TABLET PO SCH ×2 (08:04→20:33)
[2020-02-15] MEDS ORDERED: Iron Sucrose Complex 400 MG in 0.9 % Sodium Chloride 250 ML IVPB ONE (09:00)
[2020-02-15] MEDS: polyethylene glycoL 3350 17 GM POWD.PACK PO SCH (10:27)
[2020-02-16] MEDS: Ipratropium/Albuterol Neb 3 ML IH SCH ×6 (04:00→23:20)
[2020-02-16] MEDS: *HR* Heparin 5,000 UNIT/ML VIAL SQ SCH ×3 (05:52→21:35)
[2020-02-16] MEDS: Levothyroxine 25 MCG TABLET PO SCH (05:52)
[2020-02-16] MEDS: polyethylene glycoL 3350 17 GM POWD.PACK PO SCH (09:09)
[2020-02-16] MEDS: Furosemide 20 MG TABLET PO SCH (09:09)
[2020-02-16] MEDS: Finasteride 5 MG TABLET PO SCH (09:09)
[2020-02-16] MEDS: *HR* GlipiZIDE XL (24 HR) 2.5 MG TABLET PO SCH (09:09)
[2020-02-16] MEDS: Sennosides/Docusate Sodium TABLET PO SCH ×2 (09:09→21:36)
[2020-02-16] MEDS: Gabapentin 300 MG CAPSULE PO SCH ×3 (09:09→21:36)
[2020-02-16] MEDS: Famotidine 20 MG TABLET PO SCH ×2 (09:09→21:36)
[2020-02-16] MEDS: *HR* Metformin 500 MG TABLET PO SCH ×2 (09:09→17:10)
[2020-02-16] MEDS: Isosorbide MONOnitrate (24 HR) 60 MG TAB.ER.24H PO SCH (09:10)
[2020-02-16] MEDS: Aspirin Enteric Coated 81 MG Tablet PO SCH (09:10)
[2020-02-16] MEDS: amLODIPine 5 MG TABLET PO SCH (09:10)
[2020-02-16] MEDS ORDERED: Dextrose Gel 15 GM/37.5 ML TUBE PO PRN ×2 (11:53)
[2020-02-16] MEDS ORDERED: *HR* Dextrose 50 % in Water (Syg) 50 ML SYRINGE IVP PRN (11:53)
[2020-02-16] MEDS ORDERED: D5% in Water 1,000 ML IVC PRN (11:53)
[2020-02-16] MEDS: Insulin LISPRO 300 UNITS/3 ML VIAL SQ SCH ×2 (16:53→21:37)
[2020-02-17 02:21] LABS: Hematocrit 31.8 % (37.5-50.1); Mean Corpuscular HGB Conc 32.7 g/dL (31.6-35.5); Mean Corpuscular Volume 91.6 fL (83.0-100.0); Mean Platelet Volume 10.8 fL (9.4-12.4); Platelet Count 159 K/mcL (140-400); Red Blood Count 3.47 M/mcL (4.19-5.50); White Blood Count 5.2 K/mcL (4.3-11.1)
[2020-02-17 02:22] LABS: Hemoglobin 10.4 g/dL (12.9-16.9)
[2020-02-17 02:40] LABS: BUN/Creatinine Ratio 25 (6-26); Blood Urea Nitrogen 26 mg/dL (8-23); Calcium 9.1 mg/dL (8.6-10.3); Carbon Dioxide 29 mEq/L (23-29); Chloride 101 mEq/L (98-107); Glucose 186 mg/dL (70-105); Magnesium 1.7 mg/dL (1.6-2.6); Osmolality,Calculated 294 (280-300); Potassium 4.4 mEq/L (3.5-5.1); Sodium 137 mEq/L (136-145); eGFR For African Americans > 60 (> 60); eGFR For Non-African Americans > 60 (> 60)
[2020-02-17] MEDS: Ipratropium/Albuterol Neb 3 ML IH SCH ×6 (04:05→23:57)
[2020-02-17] MEDS: *HR* Heparin 5,000 UNIT/ML VIAL SQ SCH ×3 (05:15→21:21)
[2020-02-17] MEDS: Levothyroxine 25 MCG TABLET PO SCH (05:16)
[2020-02-17] MEDS: Insulin LISPRO 300 UNITS/3 ML VIAL SQ SCH ×4 (07:43→21:23)
[2020-02-17] MEDS: Sennosides/Docusate Sodium TABLET PO SCH ×2 (07:45→21:20)
[2020-02-17] MEDS: Gabapentin 300 MG CAPSULE PO SCH ×2 (07:45→17:30)
[2020-02-17] MEDS: *HR* GlipiZIDE XL (24 HR) 2.5 MG TABLET PO SCH (07:45)
[2020-02-17] MEDS: Aspirin Enteric Coated 81 MG Tablet PO SCH (07:45)
[2020-02-17] MEDS: Famotidine 20 MG TABLET PO SCH ×2 (07:45→21:21)
[2020-02-17] MEDS: amLODIPine 5 MG TABLET PO SCH (07:46)
[2020-02-17] MEDS: Finasteride 5 MG TABLET PO SCH (07:46)
[2020-02-17] MEDS: Furosemide 20 MG TABLET PO SCH (07:46)
[2020-02-17] MEDS: *HR* Metformin 500 MG TABLET PO SCH ×2 (07:46→17:30)
[2020-02-17] MEDS: Isosorbide MONOnitrate (24 HR) 60 MG TAB.ER.24H PO SCH (07:46)
[2020-02-17] MEDS: polyethylene glycoL 3350 17 GM POWD.PACK PO SCH (07:46)
[2020-02-17] MEDS: *HR* HYDROcodone/Acet 5/325 mg TABLET PO PRN (21:29)
[2020-02-18] MEDS: Ipratropium/Albuterol Neb 3 ML IH SCH ×6 (03:48→23:20)
[2020-02-18] MEDS: Levothyroxine 25 MCG TABLET PO SCH (06:22)
[2020-02-18] MEDS: *HR* Heparin 5,000 UNIT/ML VIAL SQ SCH ×3 (06:22→20:30)
[2020-02-18] MEDS: Isosorbide MONOnitrate (24 HR) 60 MG TAB.ER.24H PO SCH (09:17)
[2020-02-18] MEDS: *HR* Metformin 500 MG TABLET PO SCH ×2 (09:18→15:47)
[2020-02-18] MEDS: Furosemide 20 MG TABLET PO SCH (09:18)
[2020-02-18] MEDS: amLODIPine 5 MG TABLET PO SCH (09:18)
[2020-02-18] MEDS: Finasteride 5 MG TABLET PO SCH (09:18)
[2020-02-18] MEDS: Sennosides/Docusate Sodium TABLET PO SCH ×2 (09:18→20:30)
[2020-02-18] MEDS: Famotidine 20 MG TABLET PO SCH ×2 (09:18→20:29)
[2020-02-18] MEDS: Aspirin Enteric Coated 81 MG Tablet PO SCH (09:18)
[2020-02-18] MEDS: Gabapentin 300 MG CAPSULE PO SCH ×3 (09:18→20:30)
[2020-02-18] MEDS: *HR* GlipiZIDE XL (24 HR) 2.5 MG TABLET PO SCH (09:18)
[2020-02-18] MEDS: Insulin LISPRO 300 UNITS/3 ML VIAL SQ SCH ×4 (09:19→20:53)
[2020-02-18] MEDS: polyethylene glycoL 3350 17 GM POWD.PACK PO SCH (09:19)
[2020-02-18] MEDS: *HR* HYDROcodone/Acet 5/325 mg TABLET PO PRN (15:47)
[2020-02-18] MEDS ORDERED: *HR* Warfarin 5 MG TABLET PO SCH (18:00)
[2020-02-18] MEDS ORDERED: *HR* Warfarin 3 MG TABLET PO SCH (18:00)
[2020-02-19] MEDS: Ipratropium/Albuterol Neb 3 ML IH SCH ×3 (03:46→11:33)
[2020-02-19] MEDS: Levothyroxine 25 MCG TABLET PO SCH (06:22)
[2020-02-19] MEDS: *HR* Heparin 5,000 UNIT/ML VIAL SQ SCH (06:22)
[2020-02-19] MEDS: Insulin LISPRO 300 UNITS/3 ML VIAL SQ SCH (08:31)
[2020-02-19] MEDS: Aspirin Enteric Coated 81 MG Tablet PO SCH (08:31)
[2020-02-19] MEDS: Isosorbide MONOnitrate (24 HR) 60 MG TAB.ER.24H PO SCH (08:31)
[2020-02-19] MEDS: *HR* Metformin 500 MG TABLET PO SCH (08:32)
[2020-02-19] MEDS: *HR* GlipiZIDE XL (24 HR) 2.5 MG TABLET PO SCH (08:32)
[2020-02-19] MEDS: Furosemide 20 MG TABLET PO SCH (08:32)
[2020-02-19] MEDS: Gabapentin 300 MG CAPSULE PO SCH (08:32)
[2020-02-19] MEDS: Famotidine 20 MG TABLET PO SCH (08:32)
[2020-02-19] MEDS: amLODIPine 5 MG TABLET PO SCH (08:32)
[2020-02-19] MEDS: Sennosides/Docusate Sodium TABLET PO SCH (08:32)
[2020-02-19] MEDS: Finasteride 5 MG TABLET PO SCH (08:33)
[2020-02-19] MEDS: polyethylene glycoL 3350 17 GM POWD.PACK PO SCH (08:33)
[2020-02-19 10:56] VITALS: BP 116/89
== END 2020-02-19 12:20 | disposition home or self-care (01) | DRG 164 ==
LOC: SAMDAY 11:10 → 3NENU 16:08
PROVIDERS: ADMIT Thoracic Surgery (Cardiothoracic Vascular Surgery); ATTEND Thoracic Surgery (Cardiothoracic Vascular Surgery)

== ENCOUNTER 2020-02-26 12:09 | Observation (INO) ==
[2020-02-26] MEDS ORDERED: Ondansetron 4 MG/2 ML VIAL IVP PRN (12:26)
[2020-02-26] MEDS ORDERED: Acetaminophen 325 MG TABLET PO PRN (12:26)
[2020-02-26] MEDS ORDERED: Naloxone 0.4 MG/ML INJ IVP PRN ×2 (12:26)
[2020-02-26] MEDS: 0.9 % Sodium Chloride 1,000 ML IVC SCH (13:17)
[2020-02-26] MEDS ORDERED: D5% in Water 1,000 ML IVC PRN (14:43)
[2020-02-26] MEDS ORDERED: Dextrose Gel 15 GM/37.5 ML TUBE PO PRN ×2 (14:43)
[2020-02-26] MEDS ORDERED: *HR* Dextrose 50 % in Water (Syg) 50 ML SYRINGE IVP PRN (14:43)
[2020-02-26] MEDS ORDERED: Ipratropium/Albuterol Neb 3 ML IH PRN (15:05)
[2020-02-26 15:30] LABS: Basophils % 0.3 %; Eosinophils # 0.1 K/mcL (0.0-0.6); Hematocrit 32.4 % (37.5-50.1); Hemoglobin 10.7 g/dL (12.9-16.9); Immature Granulocytes % 0.6 % (0-4); Lymphocytes # 1.1 K/mcL (0.6-4.6); Lymphocytes % 10.3 %; Mean Corpuscular Hemoglobin 30.1 pg (28.0-33.3); Mean Platelet Volume 9.3 fL (9.4-12.4); Monocytes # 0.7 K/mcL (0.0-1.3); Monocytes % 6.7 %; Neutrophils # 8.4 K/mcL (1.6-8.9); Nucleated Red Blood Cells 0.3 /100 WBC (0); Platelet Count 247 K/mcL (140-400); Red Blood Count 3.56 M/mcL (4.19-5.50); Red Cell Distribution Width 13.7 % (11.5-14.5); Segmented Neutrophils % 81.1 %; White Blood Count 10.4 K/mcL (4.3-11.1)
[2020-02-26 15:43] LABS: INR 1.7; Prothrombin Time 19.7 Seconds (9.4-12.1)
[2020-02-26 15:48] LABS: BUN/Creatinine Ratio 18 (6-26); Blood Urea Nitrogen 17 mg/dL (8-23); Calcium 8.4 mg/dL (8.6-10.3); Carbon Dioxide 26 mEq/L (23-29); Chloride 101 mEq/L (98-107); Glucose 169 mg/dL (70-105); Osmolality,Calculated 281 (280-300); Potassium 4.4 mEq/L (3.5-5.1); Sodium 133 mEq/L (136-145); eGFR For African Americans > 60 (> 60); eGFR For Non-African Americans > 60 (> 60)
[2020-02-26] MEDS: *HR* HYDROcodone/Acet 5/325 mg TABLET PO PRN (16:00)
[2020-02-26] MEDS: Insulin LISPRO 300 UNITS/3 ML VIAL SQ SCH ×2 (16:00→20:08)
[2020-02-27 04:18] LABS: INR 1.5; Prothrombin Time 17.4 Seconds (9.4-12.1)
[2020-02-27 04:20] LABS: Activated Partial Thrombo Time 29.7 Seconds (26.0-36.0)
[2020-02-27] MEDS: 0.9 % Sodium Chloride 1,000 ML IVC SCH (05:24)
[2020-02-27 07:44] LABS: BUN/Creatinine Ratio 13 (6-26); Blood Urea Nitrogen 14 mg/dL (8-23); Calcium 8.6 mg/dL (8.6-10.3); Carbon Dioxide 26 mEq/L (23-29); Chloride 106 mEq/L (98-107); Glucose 143 mg/dL (70-105); Osmolality,Calculated 289 (280-300); Potassium 4.7 mEq/L (3.5-5.1); Sodium 138 mEq/L (136-145); eGFR For African Americans > 60 (> 60); eGFR For Non-African Americans > 60 (> 60)
[2020-02-27 08:02] LABS: Hematocrit 33.5 % (37.5-50.1); Hemoglobin 10.7 g/dL (12.9-16.9); Mean Corpuscular HGB Conc 31.9 g/dL (31.6-35.5); Mean Corpuscular Hemoglobin 29.8 pg (28.0-33.3); Mean Corpuscular Volume 93.3 fL (83.0-100.0); Platelet Count 264 K/mcL (140-400); Red Blood Count 3.59 M/mcL (4.19-5.50); Red Cell Distribution Width 14.1 % (11.5-14.5); White Blood Count 6.6 K/mcL (4.3-11.1)
[2020-02-27] MEDS: Insulin LISPRO 300 UNITS/3 ML VIAL SQ SCH ×4 (08:40→20:11)
[2020-02-27] MEDS: Finasteride 5 MG TABLET PO SCH (08:40)
[2020-02-27] MEDS ORDERED: *HR* Belladonna Alkaloids/Opium 30 MG RECTAL SUPPOSITORY RC ONE (10:40)
[2020-02-27] MEDS: *HR* HYDROcodone/Acet 5/325 mg TABLET PO PRN ×2 (10:40→16:55)
[2020-02-27] MEDS: Levothyroxine 25 MCG TABLET PO SCH (14:53)
[2020-02-27] MEDS: amLODIPine 5 MG TABLET PO SCH (16:38)
[2020-02-27] MEDS: Isosorbide MONOnitrate (24 HR) 60 MG TAB.ER.24H PO SCH (16:39)
[2020-02-27] MEDS ORDERED: Furosemide 20 MG TABLET PO SCH (17:00)
[2020-02-28] MEDS: Levothyroxine 25 MCG TABLET PO SCH (05:40)
[2020-02-28 07:23] VITALS: BP 155/74
[2020-02-28] MEDS ORDERED: GLIPIZIDE 5 MG PO SCH (09:00)
[2020-02-28] MEDS ORDERED: ISOSORBIDE MONONITRATE PO SCH (09:00)
[2020-02-28] MEDS ORDERED: Aspirin Enteric Coated 81 MG Tablet PO SCH (09:00)
[2020-02-28] MEDS: Isosorbide MONOnitrate (24 HR) 60 MG TAB.ER.24H PO SCH (09:34)
[2020-02-28] MEDS: Insulin LISPRO 300 UNITS/3 ML VIAL SQ SCH (09:35)
[2020-02-28] MEDS: amLODIPine 5 MG TABLET PO SCH (09:35)
[2020-02-28] MEDS: Finasteride 5 MG TABLET PO SCH (09:41)
== END 2020-02-28 10:57 | disposition home or self-care (01) ==
LOC: 3BNU
PROVIDERS: ADMIT Urology; ATTEND Urology

== ENCOUNTER 2020-03-06 13:31 | Observation (INO) ==
[2020-03-06] MEDS ORDERED: Piperacillin/Tazobactam 3.375 GM in 0.9 % Sodium Chloride Mini Bag 100 ML IVPB ONE (13:48)
[2020-03-06 14:30] LABS: Bacteria,Urine None Seen per hpf (None-Few); Bilirubin,Urine Negative (Negative); Blood,Urine Large (Negative); Clarity,Urine Cloudy (Clear); Color,Urine Yellow (Yellow); Glucose,Urine (UA) Normal (Normal); Hyaline Casts,Urine None Seen per lpf (None-Few); Ketones,Urine Negative (Negative); Leukocyte Esterase,Urine Large (Negative); Nitrite,Urine Negative (Negative); PH,Urine 5.5 pH Units (5.0-8.0); Protein,Urine 30 mg/dL (Neg-Trace); Specific Gravity,Urine 1.016 (1.010-1.025); Squamous Epithelial Cell,Urine None Seen per lpf (None-Few); Urobilinogen,Urine Normal (Normal); WBC,Urine TNTC per hpf (0-3)
[2020-03-06 14:36] LABS: Basophils % 0.5 %; Eosinophils # 0.1 K/mcL (0.0-0.6); Eosinophils % 1.5 %; Hematocrit 33.5 % (37.5-50.1); Hemoglobin 10.8 g/dL (12.9-16.9); Immature Granulocytes % 0.7 % (0-4); Lymphocytes # 1.2 K/mcL (0.6-4.6); Lymphocytes % 13.4 %; Mean Corpuscular HGB Conc 32.2 g/dL (31.6-35.5); Mean Corpuscular Hemoglobin 29.4 pg (28.0-33.3); Mean Corpuscular Volume 91.3 fL (83.0-100.0); Mean Platelet Volume 9.8 fL (9.4-12.4); Monocytes # 0.8 K/mcL (0.0-1.3); Monocytes % 9.6 %; Neutrophils # 6.5 K/mcL (1.6-8.9); Platelet Count 289 K/mcL (140-400); Red Blood Count 3.67 M/mcL (4.19-5.50); Red Cell Distribution Width 13.6 % (11.5-14.5); Segmented Neutrophils % 74.3 %; White Blood Count 8.7 K/mcL (4.3-11.1)
[2020-03-06 14:47] LABS: BUN/Creatinine Ratio 13 (6-26); Blood Urea Nitrogen 14 mg/dL (8-23); Calcium 9.1 mg/dL (8.6-10.3); Carbon Dioxide 26 mEq/L (23-29); Chloride 102 mEq/L (98-107); Glucose 208 mg/dL (70-105); INR 1.2; Osmolality,Calculated 291 (280-300); Potassium 4.2 mEq/L (3.5-5.1); Prothrombin Time 13.2 Seconds (9.4-12.1); Sodium 137 mEq/L (136-145); eGFR For African Americans > 60 (> 60); eGFR For Non-African Americans > 60 (> 60)
[2020-03-06] MEDS: Ertapenem 1,000 MG in 0.9 % Sodium Chloride Mini Bag 100 ML IVPB SCH (14:54)
[2020-03-06] MEDS ORDERED: Naloxone 0.4 MG/ML INJ IVP PRN (16:23)
[2020-03-06] MEDS ORDERED: *HR* Dextrose 50 % in Water (Syg) 50 ML SYRINGE IVP PRN (16:33)
[2020-03-06] MEDS ORDERED: D5% in Water 1,000 ML IVC PRN (16:33)
[2020-03-06] MEDS ORDERED: Dextrose Gel 15 GM/37.5 ML TUBE PO PRN (16:33)
[2020-03-06] MEDS ORDERED: Furosemide 20 MG TABLET PO SCH (18:00)
[2020-03-06] MEDS ORDERED: Insulin LISPRO 300 UNITS/3 ML VIAL SQ SCH (21:00)
[2020-03-06] MEDS: *HR* Heparin 5,000 UNIT/ML VIAL SQ SCH (21:59)
[2020-03-07 05:05] LABS: Basophils % 0.4 %; Eosinophils # 0.2 K/mcL (0.0-0.6); Eosinophils % 2.2 %; Hematocrit 29.9 % (37.5-50.1); Hemoglobin 9.9 g/dL (12.9-16.9); Immature Granulocytes % 0.4 % (0-4); Lymphocytes # 1.4 K/mcL (0.6-4.6); Lymphocytes % 19.2 %; Mean Corpuscular HGB Conc 33.1 g/dL (31.6-35.5); Mean Corpuscular Hemoglobin 30.2 pg (28.0-33.3); Mean Corpuscular Volume 91.2 fL (83.0-100.0); Mean Platelet Volume 9.5 fL (9.4-12.4); Monocytes # 0.7 K/mcL (0.0-1.3); Platelet Count 231 K/mcL (140-400); Red Blood Count 3.28 M/mcL (4.19-5.50); Red Cell Distribution Width 13.6 % (11.5-14.5); Segmented Neutrophils % 67.8 %; White Blood Count 7.3 K/mcL (4.3-11.1)
[2020-03-07] MEDS: *HR* Heparin 5,000 UNIT/ML VIAL SQ SCH (05:57)
[2020-03-07] MEDS ORDERED: Levothyroxine 25 MCG TABLET PO SCH (06:30)
[2020-03-07] MEDS ORDERED: amLODIPine 5 MG TABLET PO SCH (09:00)
[2020-03-07] MEDS ORDERED: Furosemide 20 MG TABLET PO SCH (09:00)
[2020-03-07] MEDS ORDERED: Finasteride 5 MG TABLET PO SCH (09:00)
[2020-03-07] MEDS ORDERED: Aspirin Enteric Coated 81 MG Tablet PO SCH (09:00)
[2020-03-07] MEDS ORDERED: Isosorbide MONOnitrate (24 HR) 60 MG TAB.ER.24H PO SCH (09:00)
[2020-03-07] MEDS: Insulin LISPRO 300 UNITS/3 ML VIAL SQ SCH ×2 (09:15→12:34)
[2020-03-07] MEDS: Ertapenem 1,000 MG in 0.9 % Sodium Chloride Mini Bag 100 ML IVPB SCH (09:17)
[2020-03-07 10:05] VITALS: BP 125/70
== END 2020-03-07 13:29 | disposition home or self-care (01) ==
LOC: 3ANU 13:31 → EMEROOARM 13:31 → 3ANU 16:51
PROVIDERS: ADMIT Family Medicine; ATTEND Family Medicine

== ENCOUNTER 2021-05-23 15:51 | Inpatient (IN) ==
[2021-05-23] MEDS ORDERED: Isovue-370 500 ML BOTTLE IVP ONE (16:27)
[2021-05-23 17:04] LABS: INR 2.2; Prothrombin Time 25.1 Seconds (9.4-12.1)
[2021-05-23 17:06] LABS: Activated Partial Thrombo Time 34.6 Seconds (26.0-36.0)
[2021-05-23 17:11] LABS: Basophils % 0.3 %; Eosinophils % 0.2 %; Hematocrit 37.4 % (37.5-50.1); Hemoglobin 12.2 g/dL (12.9-16.9); Immature Granulocytes % 0.8 % (0-4); Lymphocytes # 0.5 K/mcL (0.6-4.6); Lymphocytes % 8.6 %; Mean Corpuscular HGB Conc 32.6 g/dL (31.6-35.5); Mean Corpuscular Hemoglobin 30.7 pg (28.0-33.3); Mean Platelet Volume 10.4 fL (9.4-12.4); Monocytes # 0.9 K/mcL (0.0-1.3); Monocytes % 13.8 %; Neutrophils # 4.8 K/mcL (1.6-8.9); Platelet Count 152 K/mcL (140-400); Red Blood Count 3.98 M/mcL (4.19-5.50); Segmented Neutrophils % 76.3 %; White Blood Count 6.3 K/mcL (4.3-11.1)
[2021-05-23 17:21] LABS: Alanine Aminotransferase 20 Units/L (7-52); Albumin 4.4 g/dL (3.5-5.7); Albumin/Globulin Ratio 1.7 (1.1-2.2); Alkaline Phosphatase 75 Units/L (34-104); Aspartate Amino Transferase 17 Units/L (13-39); BUN/Creatinine Ratio 16 (6-26); Bilirubin,Direct 0.2 mg/dL (0.0-0.2); Bilirubin,Indirect 0.8 mg/dL (0.0-1.0); Blood Urea Nitrogen 18 mg/dL (8-23); Carbon Dioxide 27 mEq/L (23-29); Chloride 103 mEq/L (98-107); Globulin 2.6 g/dL (2.4-3.5); Glucose 187 mg/dL (70-105); Osmolality,Calculated 293 (280-300); Potassium 4.3 mEq/L (3.5-5.1); Sodium 138 mEq/L (136-145); Troponin I < 0.03 ng/mL (< 0.04); eGFR For African Americans > 60 (> 60); eGFR For Non-African Americans > 60 (> 60)
[2021-05-23 18:10] LABS: ABG Base Excess 0 mEq/L (-2 to 3); ABG HCO3 25 mEq/L (21-27); ABG Oxygen Saturation 92 % (95-98); ABG PCO2 43 mmHg (35-45); ABG PH 7.38 pH Units (7.32-7.45); ABG PO2 64 mmHg (85-104); ABG TCO2 27 mEq/L (20-26)
[2021-05-23] MEDS ORDERED: Azithromycin 500 MG in 0.9 % Sodium Chloride 250 ML IVPB ONE (19:29)
[2021-05-23] MEDS ORDERED: cefTRIAXone 2,000 MG in Water for inj. (sterile) 20 ML IVP ONE (19:29)
[2021-05-23 19:34] LABS: Adenovirus Not Detected (Not Detect); Bordetella Pertussis Not Detected (Not Detect); Chlamydophila pneumoniae Not Detected (Not Detect); Coronavirus 229E Not Detected (Not Detect); Coronavirus HKU1 Not Detected (Not Detect); Coronavirus NL63 Not Detected (Not Detect); Coronavirus OC43 Not Detected (Not Detect); Human Metapneumovirus Not Detected (Not Detect); Human Rhinovirus/Enterovirus Not Detected (Not Detect); Influenza A Subtype 2009 H1 Not Detected (Not Detect); Influenza B Not Detected (Not Detect); Mycoplasma pneumoniae Not Detected (Not Detect); Parainfluenza Virus 1 Not Detected (Not Detect); Parainfluenza Virus 2 Not Detected (Not Detect); Parainfluenza Virus 3 Not Detected (Not Detect); Parainfluenza Virus 4 Not Detected (Not Detect); Respiratory Syncytial Virus Not Detected (Not Detect)
[2021-05-23 19:38] LABS: SARS-CoV-2 DETECTED (Not Detect)
[2021-05-24] MEDS ORDERED: Naloxone 0.4 MG/ML INJ IVP PRN (00:27)
[2021-05-24] MEDS ORDERED: Acetaminophen 325 MG TABLET PO PRN (00:27)
[2021-05-24] MEDS ORDERED: Melatonin 3 MG TABLET PO PRN (00:27)
[2021-05-24] MEDS ORDERED: cefTRIAXone 2,000 MG in Water for inj. (sterile) 20 ML IVP ONE (01:00)
[2021-05-24] MEDS ORDERED: *HR* Dextrose 50 % in Water (Vial) 50 ML VIAL IVP PRN (01:55)
[2021-05-24] MEDS ORDERED: D5% in Water 1,000 ML IVC PRN (01:55)
[2021-05-24] MEDS ORDERED: Dextrose Gel 15 GM/37.5 ML TUBE PO PRN ×2 (01:55)
[2021-05-24 05:49] LABS: Basophils % 0.2 %; Hematocrit 33.8 % (37.5-50.1); Hemoglobin 11.3 g/dL (12.9-16.9); Immature Granulocytes % 1.1 % (0-4); Lymphocytes # 0.4 K/mcL (0.6-4.6); Lymphocytes % 9.2 %; Mean Corpuscular HGB Conc 33.4 g/dL (31.6-35.5); Mean Corpuscular Hemoglobin 31.3 pg (28.0-33.3); Mean Corpuscular Volume 93.6 fL (83.0-100.0); Mean Platelet Volume 10.3 fL (9.4-12.4); Monocytes # 0.3 K/mcL (0.0-1.3); Monocytes % 5.7 %; Neutrophils # 3.7 K/mcL (1.6-8.9); Platelet Count 129 K/mcL (140-400); Red Blood Count 3.61 M/mcL (4.19-5.50); Red Cell Distribution Width 15.1 % (11.5-14.5); Segmented Neutrophils % 83.8 %; White Blood Count 4.4 K/mcL (4.3-11.1)
[2021-05-24 05:58] LABS: INR 1.8
[2021-05-24] MEDS: Azithromycin 500 MG in D5% in Water 250 ML IVPB SCH (06:09)
[2021-05-24 06:10] LABS: Alanine Aminotransferase 16 Units/L (7-52); Albumin/Globulin Ratio 1.6 (1.1-2.2); Alkaline Phosphatase 63 Units/L (34-104); Aspartate Amino Transferase 16 Units/L (13-39); BUN/Creatinine Ratio 21 (6-26); Bilirubin,Total 0.6 mg/dL (0.3-1.0); Blood Urea Nitrogen 21 mg/dL (8-23); Calcium 8.6 mg/dL (8.6-10.3); Carbon Dioxide 26 mEq/L (23-29); Chloride 107 mEq/L (98-107); Globulin 2.5 g/dL (2.4-3.5); Glucose 208 mg/dL (70-105); Magnesium 1.9 mg/dL (1.6-2.6); Osmolality,Calculated 299 (280-300); Phosphorous 3.2 mg/dL (2.7-4.5); Potassium 4.4 mEq/L (3.5-5.1); Sodium 140 mEq/L (136-145); Total Protein 6.5 g/dL (6.4-8.9); Troponin I < 0.03 ng/mL (< 0.04); eGFR For African Americans > 60 (> 60); eGFR For Non-African Americans > 60 (> 60)
[2021-05-24] MEDS: Ipratropium 1 PUFF INHALER IH SCH ×5 (07:46→23:27)
[2021-05-24] MEDS ORDERED: Remdesivir 200 MG in 0.9 % Sodium Chloride 100 ML IVPB ONE (08:13)
[2021-05-24] MEDS: Insulin LISPRO 300 UNITS/3 ML VIAL SUBQ SCH ×4 (08:17→22:06)
[2021-05-24] MEDS: Furosemide 20 MG/2 ML VIAL IVP SCH ×2 (09:18→22:04)
[2021-05-24] MEDS ORDERED: Warfarin perPT PO PRN (18:00)
[2021-05-24] MEDS ORDERED: *HR* Warfarin 10 MG TABLET PO ONE (18:00)
[2021-05-24] MEDS: Insulin DETEMIR 100 UNIT/ML X5UNITS SUBQ SCH (22:08)
[2021-05-24] MEDS: Ondansetron 4 MG/2 ML VIAL IVP PRN (22:24)
[2021-05-25] MEDS: Ipratropium 1 PUFF INHALER IH SCH ×6 (03:44→23:02)
[2021-05-25 05:35] LABS: Albumin/Globulin Ratio 1.5 (1.1-2.2); Bilirubin,Direct 0.2 mg/dL (0.0-0.2); Bilirubin,Indirect 0.5 mg/dL (0.0-1.0); Bilirubin,Total 0.7 mg/dL (0.3-1.0); Globulin 2.6 g/dL (2.4-3.5); Total Protein 6.6 g/dL (6.4-8.9)
[2021-05-25] MEDS: Azithromycin 500 MG in D5% in Water 250 ML IVPB SCH (05:37)
[2021-05-25 05:38] LABS: BUN/Creatinine Ratio 33 (6-26); Blood Urea Nitrogen 33 mg/dL (8-23); Calcium 8.6 mg/dL (8.6-10.3); Carbon Dioxide 31 mEq/L (23-29); Chloride 102 mEq/L (98-107); Glucose 150 mg/dL (70-105); Lactate Dehydrogenase 272 Units/L (140-271); Osmolality,Calculated 300 (280-300); Phosphorous 3.1 mg/dL (2.7-4.5); Potassium 4.3 mEq/L (3.5-5.1); Sodium 140 mEq/L (136-145); eGFR For African Americans > 60 (> 60); eGFR For Non-African Americans > 60 (> 60)
[2021-05-25 05:45] LABS: INR 1.6; Prothrombin Time 18.3 Seconds (9.4-12.1)
[2021-05-25] MEDS: Levothyroxine 25 MCG TABLET PO SCH (05:45)
[2021-05-25 05:54] LABS: D-Dimer 653 ng/mLFEU (0-500); Fibrinogen 559 mg/dL (169-393)
[2021-05-25 05:55] LABS: Ferritin 391 ng/mL (20-250)
[2021-05-25 06:01] LABS: Basophils % 0.2 %; Hematocrit 37.2 % (37.5-50.1); Hemoglobin 12.3 g/dL (12.9-16.9); Immature Granulocytes % 0.2 % (0-4); Lymphocytes # 0.5 K/mcL (0.6-4.6); Lymphocytes % 9.8 %; Mean Corpuscular HGB Conc 33.1 g/dL (31.6-35.5); Mean Corpuscular Hemoglobin 30.5 pg (28.0-33.3); Mean Corpuscular Volume 92.3 fL (83.0-100.0); Monocytes # 0.6 K/mcL (0.0-1.3); Monocytes % 11.4 %; Neutrophils # 3.9 K/mcL (1.6-8.9); Platelet Count 145 K/mcL (140-400); Red Blood Count 4.03 M/mcL (4.19-5.50); Red Cell Distribution Width 14.7 % (11.5-14.5); Segmented Neutrophils % 78.4 %
[2021-05-25] MEDS: Ondansetron 4 MG/2 ML VIAL IVP PRN (07:40)
[2021-05-25] MEDS: Furosemide 20 MG/2 ML VIAL IVP SCH ×2 (07:45→20:18)
[2021-05-25] MEDS: Finasteride 5 MG TABLET PO SCH (07:46)
[2021-05-25] MEDS: Aspirin Enteric Coated 81 MG Tablet PO SCH (07:46)
[2021-05-25] MEDS: cefTRIAXone 1,000 MG in Water for inj. (sterile) 10 ML IVP SCH (07:46)
[2021-05-25] MEDS: amLODIPine 5 MG TABLET PO SCH (07:46)
[2021-05-25] MEDS: Insulin LISPRO 300 UNITS/3 ML VIAL SUBQ SCH ×4 (07:49→20:28)
[2021-05-25] MEDS: Insulin DETEMIR 100 UNIT/ML X5UNITS SUBQ SCH ×2 (07:53→20:27)
[2021-05-25] MEDS: Remdesivir 100 MG in 0.9 % Sodium Chloride 100 ML IVPB SCH (07:54)
[2021-05-25 12:24] LABS: ABG Base Excess 5 mEq/L (-2 to 3); ABG HCO3 33 mEq/L (21-27); ABG Oxygen Saturation 78 % (95-98); ABG PCO2 63 mmHg (35-45); ABG PH 7.33 pH Units (7.32-7.45); ABG PO2 47 mmHg (85-104); ABG TCO2 35 mEq/L (20-26)
[2021-05-25] MEDS ORDERED: *HR* Warfarin 3 MG TABLET PO ONE (18:00)
[2021-05-26] MEDS: Ipratropium 1 PUFF INHALER IH SCH ×5 (03:21→20:20)
[2021-05-26] MEDS: Azithromycin 500 MG in D5% in Water 250 ML IVPB SCH (06:25)
[2021-05-26] MEDS: Levothyroxine 25 MCG TABLET PO SCH (06:26)
[2021-05-26 06:45] LABS: INR 1.4; Prothrombin Time 16.1 Seconds (9.4-12.1)
[2021-05-26 06:51] LABS: Albumin 3.8 g/dL (3.5-5.7); Albumin/Globulin Ratio 1.5 (1.1-2.2); Bilirubin,Direct 0.2 mg/dL (0.0-0.2); Bilirubin,Indirect 0.5 mg/dL (0.0-1.0); Bilirubin,Total 0.7 mg/dL (0.3-1.0); Globulin 2.5 g/dL (2.4-3.5); Total Protein 6.3 g/dL (6.4-8.9)
[2021-05-26] MEDS: Insulin LISPRO 300 UNITS/3 ML VIAL SUBQ SCH ×4 (07:53→21:07)
[2021-05-26] MEDS: Aspirin Enteric Coated 81 MG Tablet PO SCH (07:55)
[2021-05-26] MEDS: amLODIPine 5 MG TABLET PO SCH (07:56)
[2021-05-26] MEDS: Remdesivir 100 MG in 0.9 % Sodium Chloride 100 ML IVPB SCH (07:56)
[2021-05-26] MEDS: Finasteride 5 MG TABLET PO SCH (07:56)
[2021-05-26] MEDS: Insulin DETEMIR 100 UNIT/ML X5UNITS SUBQ SCH ×2 (07:57→21:08)
[2021-05-26] MEDS: cefTRIAXone 1,000 MG in Water for inj. (sterile) 10 ML IVP SCH (07:57)
[2021-05-26] MEDS: Furosemide 20 MG/2 ML VIAL IVP SCH ×2 (07:58→21:01)
[2021-05-26 10:24] LABS: Basophils % 0.2 %; Hemoglobin 12.5 g/dL (12.9-16.9); Immature Granulocytes % 0.5 % (0-4); Lymphocytes # 0.7 K/mcL (0.6-4.6); Lymphocytes % 10.4 %; Mean Corpuscular HGB Conc 32.1 g/dL (31.6-35.5); Mean Corpuscular Hemoglobin 30.1 pg (28.0-33.3); Mean Platelet Volume 10.1 fL (9.4-12.4); Monocytes # 0.4 K/mcL (0.0-1.3); Monocytes % 6.8 %; Neutrophils # 5.2 K/mcL (1.6-8.9); Platelet Count 149 K/mcL (140-400); Red Blood Count 4.15 M/mcL (4.19-5.50); Red Cell Distribution Width 14.8 % (11.5-14.5); Segmented Neutrophils % 82.1 %; White Blood Count 6.3 K/mcL (4.3-11.1)
[2021-05-26 10:47] LABS: BUN/Creatinine Ratio 30 (6-26); Blood Urea Nitrogen 37 mg/dL (8-23); Calcium 8.2 mg/dL (8.6-10.3); Carbon Dioxide 29 mEq/L (23-29); Chloride 99 mEq/L (98-107); Glucose 285 mg/dL (70-105); Osmolality,Calculated 301 (280-300); Sodium 136 mEq/L (136-145); eGFR For African Americans > 60 (> 60); eGFR For Non-African Americans 55 (> 60)
[2021-05-26] MEDS ORDERED: *HR* Warfarin 5 MG TABLET PO ONE (18:00)
[2021-05-27] MEDS: Ipratropium 1 PUFF INHALER IH SCH ×7 (00:12→23:57)
[2021-05-27 03:16] LABS: Hematocrit 35.6 % (37.5-50.1); Hemoglobin 12.2 g/dL (12.9-16.9); Immature Granulocytes % 0.2 % (0-4); Lymphocytes # 0.7 K/mcL (0.6-4.6); Lymphocytes % 16.5 %; Mean Corpuscular HGB Conc 34.3 g/dL (31.6-35.5); Mean Corpuscular Hemoglobin 30.9 pg (28.0-33.3); Mean Corpuscular Volume 90.1 fL (83.0-100.0); Mean Platelet Volume 9.8 fL (9.4-12.4); Monocytes # 0.5 K/mcL (0.0-1.3); Monocytes % 11.8 %; Platelet Count 128 K/mcL (140-400); Red Blood Count 3.95 M/mcL (4.19-5.50); Red Cell Distribution Width 14.5 % (11.5-14.5); Segmented Neutrophils % 71.5 %; White Blood Count 4.2 K/mcL (4.3-11.1)
[2021-05-27 03:25] LABS: INR 1.7; Prothrombin Time 19.2 Seconds (9.4-12.1)
[2021-05-27 03:34] LABS: BUN/Creatinine Ratio 32 (6-26); Blood Urea Nitrogen 33 mg/dL (8-23); Calcium 8.4 mg/dL (8.6-10.3); Carbon Dioxide 33 mEq/L (23-29); Chloride 98 mEq/L (98-107); Glucose 124 mg/dL (70-105); Osmolality,Calculated 293 (280-300); Phosphorous 2.9 mg/dL (2.7-4.5); Potassium 3.9 mEq/L (3.5-5.1); Sodium 137 mEq/L (136-145); eGFR For African Americans > 60 (> 60); eGFR For Non-African Americans > 60 (> 60)
[2021-05-27 03:35] LABS: Albumin 3.7 g/dL (3.5-5.7); Albumin/Globulin Ratio 1.5 (1.1-2.2); Bilirubin,Direct 0.2 mg/dL (0.0-0.2); Bilirubin,Indirect 0.5 mg/dL (0.0-1.0); Bilirubin,Total 0.7 mg/dL (0.3-1.0); Globulin 2.4 g/dL (2.4-3.5); Total Protein 6.1 g/dL (6.4-8.9)
[2021-05-27] MEDS: Azithromycin 500 MG in D5% in Water 250 ML IVPB SCH (05:44)
[2021-05-27] MEDS: Levothyroxine 25 MCG TABLET PO SCH (05:45)
[2021-05-27] MEDS: Remdesivir 100 MG in 0.9 % Sodium Chloride 100 ML IVPB SCH (07:54)
[2021-05-27] MEDS: Aspirin Enteric Coated 81 MG Tablet PO SCH (07:55)
[2021-05-27] MEDS: Finasteride 5 MG TABLET PO SCH (07:55)
[2021-05-27] MEDS: amLODIPine 5 MG TABLET PO SCH (07:55)
[2021-05-27] MEDS: Furosemide 20 MG/2 ML VIAL IVP SCH ×2 (07:56→20:43)
[2021-05-27] MEDS: cefTRIAXone 1,000 MG in Water for inj. (sterile) 10 ML IVP SCH (07:56)
[2021-05-27] MEDS: Insulin LISPRO 300 UNITS/3 ML VIAL SUBQ SCH ×4 (07:58→20:42)
[2021-05-27] MEDS: Insulin DETEMIR 100 UNIT/ML X5UNITS SUBQ SCH ×2 (07:59→20:43)
[2021-05-27] MEDS ORDERED: *HR* Warfarin 10 MG TABLET PO ONE (18:00)
[2021-05-28] MEDS: Ipratropium 1 PUFF INHALER IH SCH ×5 (04:21→19:56)
[2021-05-28] MEDS: Levothyroxine 25 MCG TABLET PO SCH (05:32)
[2021-05-28 07:54] LABS: Hematocrit 35.5 % (37.5-50.1); Hemoglobin 12.6 g/dL (12.9-16.9); Immature Granulocytes % 0.2 % (0-4); Lymphocytes # 0.7 K/mcL (0.6-4.6); Lymphocytes % 16.8 %; Mean Corpuscular HGB Conc 35.5 g/dL (31.6-35.5); Mean Corpuscular Volume 87.4 fL (83.0-100.0); Mean Platelet Volume 10.1 fL (9.4-12.4); Monocytes # 0.5 K/mcL (0.0-1.3); Monocytes % 12.3 %; Neutrophils # 3.1 K/mcL (1.6-8.9); Platelet Count 131 K/mcL (140-400); Red Blood Count 4.06 M/mcL (4.19-5.50); Segmented Neutrophils % 70.7 %; White Blood Count 4.4 K/mcL (4.3-11.1)
[2021-05-28 07:59] LABS: INR 1.9; Prothrombin Time 21.7 Seconds (9.4-12.1)
[2021-05-28 08:45] LABS: Albumin 3.8 g/dL (3.5-5.7); Albumin/Globulin Ratio 1.5 (1.1-2.2); BUN/Creatinine Ratio 31 (6-26); Bilirubin,Direct 0.1 mg/dL (0.0-0.2); Bilirubin,Indirect 0.6 mg/dL (0.0-1.0); Bilirubin,Total 0.7 mg/dL (0.3-1.0); Blood Urea Nitrogen 31 mg/dL (8-23); Calcium 8.3 mg/dL (8.6-10.3); Carbon Dioxide 29 mEq/L (23-29); Chloride 100 mEq/L (98-107); Globulin 2.5 g/dL (2.4-3.5); Glucose 150 mg/dL (70-105); Osmolality,Calculated 295 (280-300); Phosphorous 2.8 mg/dL (2.7-4.5); Potassium 3.9 mEq/L (3.5-5.1); Sodium 138 mEq/L (136-145); Total Protein 6.3 g/dL (6.4-8.9); eGFR For African Americans > 60 (> 60); eGFR For Non-African Americans > 60 (> 60)
[2021-05-28] MEDS: Aspirin Enteric Coated 81 MG Tablet PO SCH (08:59)
[2021-05-28] MEDS: Finasteride 5 MG TABLET PO SCH (08:59)
[2021-05-28] MEDS: amLODIPine 5 MG TABLET PO SCH (08:59)
[2021-05-28] MEDS: Furosemide 20 MG/2 ML VIAL IVP SCH ×2 (09:00→20:15)
[2021-05-28] MEDS: Insulin DETEMIR 100 UNIT/ML X5UNITS SUBQ SCH ×2 (09:00→20:15)
[2021-05-28] MEDS: cefTRIAXone 1,000 MG in Water for inj. (sterile) 10 ML IVP SCH (09:01)
[2021-05-28] MEDS: Insulin LISPRO 300 UNITS/3 ML VIAL SUBQ SCH ×4 (09:01→20:15)
[2021-05-28] MEDS: Remdesivir 100 MG in 0.9 % Sodium Chloride 100 ML IVPB SCH (09:02)
[2021-05-28] MEDS ORDERED: *HR* Warfarin 10 MG TABLET PO ONE (18:00)
[2021-05-29] MEDS: Ipratropium 1 PUFF INHALER IH SCH ×6 (00:12→20:25)
[2021-05-29 02:37] LABS: Hematocrit 38.3 % (37.5-50.1); Hemoglobin 13.6 g/dL (12.9-16.9); Immature Granulocytes % 0.4 % (0-4); Lymphocytes # 0.7 K/mcL (0.6-4.6); Lymphocytes % 16.3 %; Mean Corpuscular HGB Conc 35.5 g/dL (31.6-35.5); Mean Corpuscular Hemoglobin 31.2 pg (28.0-33.3); Mean Corpuscular Volume 87.8 fL (83.0-100.0); Mean Platelet Volume 10.2 fL (9.4-12.4); Monocytes # 0.7 K/mcL (0.0-1.3); Monocytes % 14.3 %; Neutrophils # 3.1 K/mcL (1.6-8.9); Platelet Count 150 K/mcL (140-400); Red Blood Count 4.36 M/mcL (4.19-5.50); Red Cell Distribution Width 13.8 % (11.5-14.5); White Blood Count 4.6 K/mcL (4.3-11.1)
[2021-05-29 02:44] LABS: INR 1.9
[2021-05-29 02:58] LABS: Albumin 3.8 g/dL (3.5-5.7); Albumin/Globulin Ratio 1.4 (1.1-2.2); BUN/Creatinine Ratio 35 (6-26); Bilirubin,Direct 0.2 mg/dL (0.0-0.2); Bilirubin,Indirect 0.5 mg/dL (0.0-1.0); Bilirubin,Total 0.7 mg/dL (0.3-1.0); Blood Urea Nitrogen 33 mg/dL (8-23); Calcium 8.6 mg/dL (8.6-10.3); Carbon Dioxide 31 mEq/L (23-29); Chloride 98 mEq/L (98-107); Globulin 2.8 g/dL (2.4-3.5); Glucose 164 mg/dL (70-105); Osmolality,Calculated 299 (280-300); Phosphorous 2.9 mg/dL (2.7-4.5); Potassium 3.8 mEq/L (3.5-5.1); Sodium 139 mEq/L (136-145); Total Protein 6.6 g/dL (6.4-8.9); eGFR For African Americans > 60 (> 60); eGFR For Non-African Americans > 60 (> 60)
[2021-05-29] MEDS: Levothyroxine 25 MCG TABLET PO SCH (05:23)
[2021-05-29] MEDS: Furosemide 20 MG/2 ML VIAL IVP SCH ×2 (11:20→20:43)
[2021-05-29] MEDS: Finasteride 5 MG TABLET PO SCH (11:20)
[2021-05-29] MEDS: amLODIPine 5 MG TABLET PO SCH (11:20)
[2021-05-29] MEDS: Aspirin Enteric Coated 81 MG Tablet PO SCH (11:20)
[2021-05-29] MEDS: Insulin LISPRO 300 UNITS/3 ML VIAL SUBQ SCH ×4 (11:21→20:46)
[2021-05-29] MEDS: Insulin DETEMIR 100 UNIT/ML X5UNITS SUBQ SCH ×2 (11:21→20:44)
[2021-05-29] MEDS ORDERED: *HR* Warfarin 10 MG TABLET PO ONE (18:00)
[2021-05-30] MEDS: Ipratropium 1 PUFF INHALER IH SCH ×7 (00:22→23:52)
[2021-05-30 02:32] LABS: Hematocrit 38.9 % (37.5-50.1); Hemoglobin 13.6 g/dL (12.9-16.9); Immature Granulocytes % 0.7 % (0-4); Lymphocytes # 0.7 K/mcL (0.6-4.6); Lymphocytes % 15.1 %; Mean Corpuscular Hemoglobin 30.6 pg (28.0-33.3); Mean Corpuscular Volume 87.6 fL (83.0-100.0); Mean Platelet Volume 9.7 fL (9.4-12.4); Monocytes # 0.5 K/mcL (0.0-1.3); Monocytes % 10.8 %; Neutrophils # 3.2 K/mcL (1.6-8.9); Platelet Count 148 K/mcL (140-400); Red Blood Count 4.44 M/mcL (4.19-5.50); Red Cell Distribution Width 13.7 % (11.5-14.5); Segmented Neutrophils % 73.4 %; White Blood Count 4.4 K/mcL (4.3-11.1)
[2021-05-30 02:41] LABS: Prothrombin Time 22.6 Seconds (9.4-12.1)
[2021-05-30 02:53] LABS: BUN/Creatinine Ratio 32 (6-26); Blood Urea Nitrogen 36 mg/dL (8-23); Calcium 8.4 mg/dL (8.6-10.3); Carbon Dioxide 31 mEq/L (23-29); Chloride 97 mEq/L (98-107); Glucose 201 mg/dL (70-105); Magnesium 1.9 mg/dL (1.6-2.6); Osmolality,Calculated 296 (280-300); Phosphorous 3.4 mg/dL (2.7-4.5); Sodium 136 mEq/L (136-145); eGFR For African Americans > 60 (> 60); eGFR For Non-African Americans > 60 (> 60)
[2021-05-30] MEDS: Levothyroxine 25 MCG TABLET PO SCH (05:10)
[2021-05-30] MEDS: Furosemide 20 MG/2 ML VIAL IVP SCH ×2 (09:35→20:23)
[2021-05-30] MEDS: Aspirin Enteric Coated 81 MG Tablet PO SCH (09:37)
[2021-05-30] MEDS: amLODIPine 5 MG TABLET PO SCH (09:37)
[2021-05-30] MEDS: Insulin DETEMIR 100 UNIT/ML X5UNITS SUBQ SCH ×2 (09:38→20:23)
[2021-05-30] MEDS: Insulin LISPRO 300 UNITS/3 ML VIAL SUBQ SCH ×4 (09:39→20:24)
[2021-05-30] MEDS: Finasteride 5 MG TABLET PO SCH (09:39)
[2021-05-30] MEDS ORDERED: *HR* Warfarin 3 MG TABLET PO ONE (18:00)
[2021-05-31] MEDS: Ipratropium 1 PUFF INHALER IH SCH ×5 (03:59→20:44)
[2021-05-31] MEDS: Levothyroxine 25 MCG TABLET PO SCH (05:19)
[2021-05-31 06:45] LABS: Basophils % 0.2 %; Eosinophils % 0.2 %; Hematocrit 41.7 % (37.5-50.1); Hemoglobin 14.4 g/dL (12.9-16.9); Immature Granulocytes % 1.1 % (0-4); Lymphocytes # 0.8 K/mcL (0.6-4.6); Mean Corpuscular HGB Conc 34.5 g/dL (31.6-35.5); Mean Corpuscular Hemoglobin 30.6 pg (28.0-33.3); Mean Corpuscular Volume 88.5 fL (83.0-100.0); Mean Platelet Volume 10.6 fL (9.4-12.4); Monocytes # 0.7 K/mcL (0.0-1.3); Monocytes % 10.9 %; Neutrophils # 4.6 K/mcL (1.6-8.9); Platelet Count 184 K/mcL (140-400); Red Blood Count 4.71 M/mcL (4.19-5.50); Red Cell Distribution Width 13.6 % (11.5-14.5); Segmented Neutrophils % 74.6 %; White Blood Count 6.2 K/mcL (4.3-11.1)
[2021-05-31 06:53] LABS: INR 2.5; Prothrombin Time 27.7 Seconds (9.4-12.1)
[2021-05-31 07:00] LABS: BUN/Creatinine Ratio 38 (6-26); Blood Urea Nitrogen 41 mg/dL (8-23); Calcium 8.6 mg/dL (8.6-10.3); Carbon Dioxide 31 mEq/L (23-29); Chloride 98 mEq/L (98-107); Glucose 206 mg/dL (70-105); Magnesium 2.2 mg/dL (1.6-2.6); Osmolality,Calculated 298 (280-300); Potassium 4.1 mEq/L (3.5-5.1); Sodium 136 mEq/L (136-145); eGFR For African Americans > 60 (> 60); eGFR For Non-African Americans > 60 (> 60)
[2021-05-31] MEDS: Furosemide 20 MG/2 ML VIAL IVP SCH ×2 (07:56→21:28)
[2021-05-31] MEDS: Aspirin Enteric Coated 81 MG Tablet PO SCH (07:57)
[2021-05-31] MEDS: Finasteride 5 MG TABLET PO SCH (07:57)
[2021-05-31] MEDS: amLODIPine 5 MG TABLET PO SCH (07:57)
[2021-05-31] MEDS: polyethylene glycoL 3350 17 GM POWD.PACK PO SCH (07:58)
[2021-05-31] MEDS: Insulin LISPRO 300 UNITS/3 ML VIAL SUBQ SCH ×4 (08:23→21:27)
[2021-05-31] MEDS: Insulin DETEMIR 100 UNIT/ML X5UNITS SUBQ SCH ×2 (08:25→21:28)
[2021-05-31] MEDS ORDERED: MOM Conc 10 ML UD.LIQ PO ONE (12:15)
[2021-05-31] MEDS ORDERED: *HR* Warfarin 7.5 MG TABLET PO ONE (18:00)
[2021-06-01] MEDS: Ipratropium 1 PUFF INHALER IH SCH ×7 (00:38→23:56)
[2021-06-01] MEDS: Levothyroxine 25 MCG TABLET PO SCH (05:20)
[2021-06-01 05:21] LABS: Basophils % 0.1 %; Eosinophils % 0.1 %; Hematocrit 41.5 % (37.5-50.1); Hemoglobin 14.8 g/dL (12.9-16.9); Immature Granulocytes % 1.2 % (0-4); Lymphocytes % 11.7 %; Mean Corpuscular HGB Conc 35.7 g/dL (31.6-35.5); Mean Corpuscular Hemoglobin 30.7 pg (28.0-33.3); Mean Corpuscular Volume 86.1 fL (83.0-100.0); Mean Platelet Volume 9.8 fL (9.4-12.4); Monocytes # 0.9 K/mcL (0.0-1.3); Monocytes % 10.4 %; Neutrophils # 6.3 K/mcL (1.6-8.9); Platelet Count 203 K/mcL (140-400); Red Blood Count 4.82 M/mcL (4.19-5.50); Red Cell Distribution Width 13.6 % (11.5-14.5); Segmented Neutrophils % 76.5 %; White Blood Count 8.2 K/mcL (4.3-11.1)
[2021-06-01 05:37] LABS: INR 3.3; Prothrombin Time 36.7 Seconds (9.4-12.1)
[2021-06-01 05:39] LABS: BUN/Creatinine Ratio 42 (6-26); Blood Urea Nitrogen 42 mg/dL (8-23); Calcium 8.7 mg/dL (8.6-10.3); Carbon Dioxide 32 mEq/L (23-29); Chloride 96 mEq/L (98-107); Glucose 184 mg/dL (70-105); Magnesium 2.4 mg/dL (1.6-2.6); Osmolality,Calculated 297 (280-300); Phosphorous 2.5 mg/dL (2.7-4.5); Potassium 4.1 mEq/L (3.5-5.1); Sodium 136 mEq/L (136-145); eGFR For African Americans > 60 (> 60); eGFR For Non-African Americans > 60 (> 60)
[2021-06-01] MEDS: Insulin LISPRO 300 UNITS/3 ML VIAL SUBQ SCH ×4 (08:04→21:22)
[2021-06-01] MEDS: Aspirin Enteric Coated 81 MG Tablet PO SCH (08:05)
[2021-06-01] MEDS: Finasteride 5 MG TABLET PO SCH (08:05)
[2021-06-01] MEDS: amLODIPine 5 MG TABLET PO SCH (08:06)
[2021-06-01] MEDS: Furosemide 20 MG/2 ML VIAL IVP SCH ×2 (08:07→21:22)
[2021-06-01] MEDS: polyethylene glycoL 3350 17 GM POWD.PACK PO SCH (08:08)
[2021-06-01] MEDS: Insulin DETEMIR 100 UNIT/ML X5UNITS SUBQ SCH ×2 (08:18→21:24)
[2021-06-02] MEDS: Ipratropium 1 PUFF INHALER IH SCH ×5 (03:39→20:24)
[2021-06-02] MEDS: Levothyroxine 25 MCG TABLET PO SCH (05:19)
[2021-06-02 07:03] LABS: Basophils % 0.2 %; Eosinophils % 0.3 %; Hematocrit 42.7 % (37.5-50.1); Hemoglobin 15.1 g/dL (12.9-16.9); Lymphocytes % 9.8 %; Mean Corpuscular HGB Conc 35.4 g/dL (31.6-35.5); Mean Corpuscular Hemoglobin 30.7 pg (28.0-33.3); Mean Corpuscular Volume 86.8 fL (83.0-100.0); Mean Platelet Volume 9.9 fL (9.4-12.4); Neutrophils # 8.4 K/mcL (1.6-8.9); Platelet Count 219 K/mcL (140-400); Red Blood Count 4.92 M/mcL (4.19-5.50); Red Cell Distribution Width 13.5 % (11.5-14.5); Segmented Neutrophils % 79.7 %; White Blood Count 10.5 K/mcL (4.3-11.1)
[2021-06-02 07:23] LABS: BUN/Creatinine Ratio 44 (6-26); Blood Urea Nitrogen 41 mg/dL (8-23); Calcium 8.8 mg/dL (8.6-10.3); Carbon Dioxide 32 mEq/L (23-29); Chloride 95 mEq/L (98-107); Glucose 173 mg/dL (70-105); Osmolality,Calculated 296 (280-300); Potassium 4.3 mEq/L (3.5-5.1); Sodium 136 mEq/L (136-145); eGFR For African Americans > 60 (> 60); eGFR For Non-African Americans > 60 (> 60)
[2021-06-02 07:26] LABS: INR 2.4; Prothrombin Time 27.3 Seconds (9.4-12.1)
[2021-06-02] MEDS: Insulin LISPRO 300 UNITS/3 ML VIAL SUBQ SCH ×4 (08:18→21:46)
[2021-06-02] MEDS: Insulin DETEMIR 100 UNIT/ML X5UNITS SUBQ SCH ×2 (08:18→21:44)
[2021-06-02] MEDS: amLODIPine 5 MG TABLET PO SCH (08:19)
[2021-06-02] MEDS: Finasteride 5 MG TABLET PO SCH (08:19)
[2021-06-02] MEDS: Aspirin Enteric Coated 81 MG Tablet PO SCH (08:19)
[2021-06-02] MEDS: Furosemide 20 MG/2 ML VIAL IVP SCH ×2 (08:19→21:42)
[2021-06-02] MEDS: polyethylene glycoL 3350 17 GM POWD.PACK PO SCH (08:19)
[2021-06-02] MEDS ORDERED: *HR* Warfarin 5 MG TABLET PO ONE (18:00)
[2021-06-02] MEDS ORDERED: *HR* Warfarin 10 MG TABLET PO ONE (18:00)
[2021-06-03] MEDS: Ipratropium 1 PUFF INHALER IH SCH ×7 (00:12→23:52)
[2021-06-03 05:49] LABS: Basophils % 0.3 %; Eosinophils % 0.2 %; Hematocrit 40.9 % (37.5-50.1); Hemoglobin 14.2 g/dL (12.9-16.9); Immature Granulocytes % 1.4 % (0-4); Lymphocytes # 1.2 K/mcL (0.6-4.6); Lymphocytes % 11.3 %; Mean Corpuscular HGB Conc 34.7 g/dL (31.6-35.5); Mean Corpuscular Hemoglobin 30.1 pg (28.0-33.3); Mean Corpuscular Volume 86.8 fL (83.0-100.0); Monocytes % 9.6 %; Neutrophils # 8.3 K/mcL (1.6-8.9); Platelet Count 231 K/mcL (140-400); Red Blood Count 4.71 M/mcL (4.19-5.50); Red Cell Distribution Width 13.4 % (11.5-14.5); Segmented Neutrophils % 77.2 %; White Blood Count 10.8 K/mcL (4.3-11.1)
[2021-06-03 05:57] LABS: INR 1.7; Prothrombin Time 19.6 Seconds (9.4-12.1)
[2021-06-03] MEDS: Levothyroxine 25 MCG TABLET PO SCH (06:08)
[2021-06-03 06:15] LABS: BUN/Creatinine Ratio 43 (6-26); Blood Urea Nitrogen 48 mg/dL (8-23); Calcium 8.8 mg/dL (8.6-10.3); Carbon Dioxide 34 mEq/L (23-29); Chloride 95 mEq/L (98-107); Glucose 207 mg/dL (70-105); Osmolality,Calculated 299 (280-300); Potassium 4.4 mEq/L (3.5-5.1); Sodium 135 mEq/L (136-145); eGFR For African Americans > 60 (> 60); eGFR For Non-African Americans > 60 (> 60)
[2021-06-03] MEDS: Insulin LISPRO 300 UNITS/3 ML VIAL SUBQ SCH ×4 (11:30→21:26)
[2021-06-03] MEDS: Finasteride 5 MG TABLET PO SCH (11:31)
[2021-06-03] MEDS: amLODIPine 5 MG TABLET PO SCH (11:31)
[2021-06-03] MEDS: Aspirin Enteric Coated 81 MG Tablet PO SCH (11:31)
[2021-06-03] MEDS: polyethylene glycoL 3350 17 GM POWD.PACK PO SCH (11:32)
[2021-06-03] MEDS: Insulin DETEMIR 100 UNIT/ML X5UNITS SUBQ SCH ×2 (11:32→21:35)
[2021-06-03] MEDS: Furosemide 20 MG/2 ML VIAL IVP SCH ×2 (11:33→21:22)
[2021-06-03] MEDS ORDERED: *HR* Warfarin 7.5 MG TABLET PO ONE (18:00)
[2021-06-04] MEDS: Ipratropium 1 PUFF INHALER IH SCH ×5 (04:03→17:13)
[2021-06-04] MEDS: Levothyroxine 25 MCG TABLET PO SCH (05:46)
[2021-06-04 07:25] LABS: Basophils % 0.2 %; Eosinophils % 0.1 %; Hematocrit 39.1 % (37.5-50.1); Immature Granulocytes % 1.3 % (0-4); Lymphocytes # 1.1 K/mcL (0.6-4.6); Lymphocytes % 11.1 %; Mean Corpuscular HGB Conc 35.8 g/dL (31.6-35.5); Mean Corpuscular Volume 86.5 fL (83.0-100.0); Mean Platelet Volume 9.9 fL (9.4-12.4); Monocytes # 0.7 K/mcL (0.0-1.3); Monocytes % 7.1 %; Neutrophils # 8.2 K/mcL (1.6-8.9); Platelet Count 259 K/mcL (140-400); Red Blood Count 4.52 M/mcL (4.19-5.50); Red Cell Distribution Width 13.3 % (11.5-14.5); Segmented Neutrophils % 80.2 %; White Blood Count 10.2 K/mcL (4.3-11.1)
[2021-06-04 07:36] LABS: INR 1.6; Prothrombin Time 18.6 Seconds (9.4-12.1)
[2021-06-04 07:45] LABS: BUN/Creatinine Ratio 44 (6-26); Blood Urea Nitrogen 45 mg/dL (8-23); Calcium 8.6 mg/dL (8.6-10.3); Carbon Dioxide 33 mEq/L (23-29); Chloride 96 mEq/L (98-107); Glucose 175 mg/dL (70-105); Osmolality,Calculated 290 (280-300); Potassium 4.4 mEq/L (3.5-5.1); Sodium 132 mEq/L (136-145); eGFR For African Americans > 60 (> 60); eGFR For Non-African Americans > 60 (> 60)
[2021-06-04] MEDS: Furosemide 20 MG/2 ML VIAL IVP SCH ×2 (08:01→21:40)
[2021-06-04] MEDS: amLODIPine 5 MG TABLET PO SCH (08:02)
[2021-06-04] MEDS: Finasteride 5 MG TABLET PO SCH (08:02)
[2021-06-04] MEDS: Aspirin Enteric Coated 81 MG Tablet PO SCH (08:02)
[2021-06-04] MEDS: polyethylene glycoL 3350 17 GM POWD.PACK PO SCH (08:02)
[2021-06-04] MEDS: Insulin DETEMIR 100 UNIT/ML X5UNITS SUBQ SCH ×2 (08:06→21:50)
[2021-06-04] MEDS: Insulin LISPRO 300 UNITS/3 ML VIAL SUBQ SCH ×4 (08:07→21:44)
[2021-06-05] MEDS: Ipratropium 1 PUFF INHALER IH SCH ×7 (00:03→23:53)
[2021-06-05] MEDS: Levothyroxine 25 MCG TABLET PO SCH (05:38)
[2021-06-05 07:19] LABS: INR 1.9; Prothrombin Time 22.1 Seconds (9.4-12.1)
[2021-06-05] MEDS: Furosemide 20 MG/2 ML VIAL IVP SCH ×2 (08:12→21:10)
[2021-06-05] MEDS: Finasteride 5 MG TABLET PO SCH (08:13)
[2021-06-05] MEDS: polyethylene glycoL 3350 17 GM POWD.PACK PO SCH (08:13)
[2021-06-05] MEDS: Aspirin Enteric Coated 81 MG Tablet PO SCH (08:13)
[2021-06-05] MEDS: amLODIPine 5 MG TABLET PO SCH (08:13)
[2021-06-05] MEDS: Insulin LISPRO 300 UNITS/3 ML VIAL SUBQ SCH ×4 (08:14→21:16)
[2021-06-05] MEDS: Insulin DETEMIR 100 UNIT/ML X5UNITS SUBQ SCH ×2 (08:23→21:13)
[2021-06-05] MEDS ORDERED: *HR* Warfarin 10 MG TABLET PO ONE (18:00)
[2021-06-06] MEDS: Ipratropium 1 PUFF INHALER IH SCH ×4 (05:16→15:50)
[2021-06-06] MEDS: Levothyroxine 25 MCG TABLET PO SCH (06:12)
[2021-06-06 07:51] LABS: INR 2.1; Prothrombin Time 24.2 Seconds (9.4-12.1)
[2021-06-06] MEDS: polyethylene glycoL 3350 17 GM POWD.PACK PO SCH (10:36)
[2021-06-06] MEDS: amLODIPine 5 MG TABLET PO SCH (10:36)
[2021-06-06] MEDS: Aspirin Enteric Coated 81 MG Tablet PO SCH (10:36)
[2021-06-06] MEDS: Furosemide 20 MG/2 ML VIAL IVP SCH (10:36)
[2021-06-06] MEDS: Finasteride 5 MG TABLET PO SCH (10:36)
[2021-06-06] MEDS: Insulin LISPRO 300 UNITS/3 ML VIAL SUBQ SCH (10:37)
[2021-06-06] MEDS: Insulin DETEMIR 100 UNIT/ML X5UNITS SUBQ SCH (10:49)
[2021-06-06 11:09] VITALS: BP 149/76; PULSE 72; TEMP 98.2
[2021-06-06 16:38] VITALS: O2SAT 94
[2021-06-06] MEDS ORDERED: *HR* Warfarin 5 MG TABLET PO ONE (18:00)
== END 2021-06-06 17:05 | disposition other institution (70) | DRG 177 ==
LOC: EMEROOARM 15:51 → 3ANU 15:51 → SUATTDRO 05-24 00:55 → 3ANU 05-25 08:39
PROVIDERS: ADMIT Family Medicine; ATTEND Internal Medicine

== ENCOUNTER 2022-05-28 10:24 | Inpatient (IN) ==
[2022-05-28] MEDS ORDERED: Ondansetron 4 MG/2 ML VIAL IVP STA (10:49)
[2022-05-28] MEDS ORDERED: 0.9 % Sodium Chloride 1,000 ML IV ONE (10:49)
[2022-05-28] MEDS ORDERED: Iopamidol - 370 500 ML MLS IVP ONE (10:50)
[2022-05-28 11:17] LABS: Basophils % 0.4 %; Eosinophils # 0.1 K/mcL (0.0-0.6); Eosinophils % 1.5 %; Hematocrit 39.3 % (37.5-50.1); Immature Granulocytes % 0.4 % (0-4); Lymphocytes # 0.7 K/mcL (0.6-4.6); Mean Corpuscular HGB Conc 31.6 g/dL (31.6-35.5); Mean Corpuscular Hemoglobin 27.9 pg (28.0-33.3); Mean Corpuscular Volume 88.3 fL (83.0-100.0); Mean Platelet Volume 9.7 fL (9.4-12.4); Monocytes # 0.4 K/mcL (0.0-1.3); Monocytes % 8.2 %; Neutrophils # 3.6 K/mcL (1.6-8.9); Platelet Count 149 K/mcL (140-400); Red Blood Count 4.45 M/mcL (4.19-5.50); Red Cell Distribution Width 14.6 % (11.5-14.5); Segmented Neutrophils % 75.5 %; White Blood Count 4.8 K/mcL (4.3-11.1)
[2022-05-28 11:18] LABS: Hemoglobin 12.4 g/dL (12.9-16.9)
[2022-05-28 11:24] LABS: INR 2.1; Prothrombin Time 23.7 Seconds (9.4-12.1)
[2022-05-28 11:38] LABS: Alanine Aminotransferase 17 Units/L (7-52); Albumin 4.5 g/dL (3.5-5.7); Albumin/Globulin Ratio 1.5 (1.1-2.2); Alkaline Phosphatase 86 Units/L (34-104); Aspartate Amino Transferase 16 Units/L (13-39); BUN/Creatinine Ratio 16 (6-26); Bilirubin,Total 0.8 mg/dL (0.3-1.0); Blood Urea Nitrogen 14 mg/dL (8-23); Calcium 9.7 mg/dL (8.6-10.3); Carbon Dioxide 32 mEq/L (23-29); Chloride 102 mEq/L (98-107); Globulin 3.1 g/dL (2.4-3.5); Glucose 162 mg/dL (70-105); Osmolality,Calculated 294 (280-300); Potassium 4.2 mEq/L (3.5-5.1); Sodium 140 mEq/L (136-145); Total Protein 7.6 g/dL (6.4-8.9); eGFR For African Americans > 60 (> 60); eGFR For Non-African Americans > 60 (> 60)
[2022-05-28 11:39] LABS: Troponin I < 0.03 ng/mL (< 0.04)
[2022-05-28 12:36] LABS: Thyroid Stimulating Hormone 3.844 mcIU/mL (0.340-5.600)
[2022-05-28 12:57] LABS: Bilirubin,Urine Negative (Negative); Blood,Urine Negative (Negative); Clarity,Urine Clear (Clear); Color,Urine Light-Yellow (Yellow); Glucose,Urine (UA) 30 mg/dL (Normal); Ketones,Urine Negative (Negative); Leukocyte Esterase,Urine Negative (Negative); Mucus,Urine Few per lpf (None-Few); Nitrite,Urine Negative (Negative); Protein,Urine 50 mg/dL (Neg-Trace); RBC,Urine 0-3 per hpf (0-3); Specific Gravity,Urine 1.021 (1.010-1.025); Urobilinogen,Urine Normal (Normal); WBC,Urine 0-3 per hpf (0-3)
[2022-05-28] MEDS ORDERED: Mag Hydrox/Al Hydrox/Simeth 30 ML UDC PO PRN (16:14)
[2022-05-28] MEDS ORDERED: Ondansetron ODT 4 MG TAB.RAPDIS SL PRN (16:14)
[2022-05-28] MEDS ORDERED: Naloxone 0.4 MG/ML INJ IVP PRN (16:14)
[2022-05-28] MEDS ORDERED: Melatonin 3 MG TABLET PO PRN (16:14)
[2022-05-28] MEDS ORDERED: MOM Conc 10 ML UD.LIQ PO PRN (16:14)
[2022-05-28] MEDS ORDERED: *HR* Dextrose 50 % in Water (Syg) 50 ML SYRINGE IVP PRN (16:16)
[2022-05-28] MEDS ORDERED: Dextrose Gel 15 GM/37.5 ML TUBE PO PRN ×2 (16:16)
[2022-05-28] MEDS ORDERED: D5% in Water 1,000 ML IVC PRN (16:16)
[2022-05-28] MEDS ORDERED: Perflutren Lipid Microsphere 1.3 ML in 0.9 % Sodium Chloride 8.7 ML IVP PRN (16:23)
[2022-05-28 16:24] LABS: Influenza A PCR Negative (Negative); Influenza B PCR Negative (Negative); Resp. Syncytial Virus PCR Negative (Negative)
[2022-05-28 16:34] LABS: Estimated Average Glucose 180 mg/dl; Hemoglobin A1C 7.9 %
[2022-05-28] MEDS ORDERED: Gadolinium Contrast Agent (WT Based) IV PRN (16:42)
[2022-05-28 17:04] LABS: SARS-CoV-2 by PCR (In House) Negative (Negative)
[2022-05-28] MEDS: Insulin LISPRO 300 UNITS/3 ML VIAL SUBQ SCH ×2 (17:18→21:28)
[2022-05-28] MEDS: Azithromycin 500 MG in 0.9 % Sodium Chloride 250 ML IVPB SCH (17:19)
[2022-05-28] MEDS: cefTRIAXone 1,000 MG in 0.9 % Sodium Chloride Mini Bag 100 ML IVPB SCH (17:19)
[2022-05-28] MEDS ORDERED: *HR* Warfarin 5 MG TABLET PO ONE (18:00)
[2022-05-28] MEDS ORDERED: Warfarin perPT PO PRN (18:00)
[2022-05-28] MEDS ORDERED: *HR* Warfarin 10 MG TABLET PO ONE (18:00)
[2022-05-28] MEDS: Budesonide/Formoterol 160/4.5 1 PUFF INH IH SCH (21:54)
[2022-05-29] MEDS: Levothyroxine 25 MCG TABLET PO SCH (05:49)
[2022-05-29 07:16] LABS: Basophils % 0.4 %; Eosinophils # 0.1 K/mcL (0.0-0.6); Eosinophils % 1.8 %; Hematocrit 37.1 % (37.5-50.1); Hemoglobin 11.4 g/dL (12.9-16.9); Immature Granulocytes % 0.4 % (0-4); Lymphocytes # 1.1 K/mcL (0.6-4.6); Lymphocytes % 23.5 %; Mean Corpuscular HGB Conc 30.7 g/dL (31.6-35.5); Mean Corpuscular Hemoglobin 27.8 pg (28.0-33.3); Mean Corpuscular Volume 90.5 fL (83.0-100.0); Mean Platelet Volume 10.8 fL (9.4-12.4); Monocytes # 0.5 K/mcL (0.0-1.3); Monocytes % 11.6 %; Neutrophils # 2.8 K/mcL (1.6-8.9); Platelet Count 143 K/mcL (140-400); Red Cell Distribution Width 14.6 % (11.5-14.5); Segmented Neutrophils % 62.3 %; White Blood Count 4.6 K/mcL (4.3-11.1)
[2022-05-29] MEDS: Budesonide/Formoterol 160/4.5 1 PUFF INH IH SCH ×2 (07:19→22:58)
[2022-05-29 07:23] LABS: INR 2.2; Prothrombin Time 24.1 Seconds (9.4-12.1)
[2022-05-29] MEDS: Insulin LISPRO 300 UNITS/3 ML VIAL SUBQ SCH ×4 (07:30→20:51)
[2022-05-29] MEDS: amLODIPine 5 MG TABLET PO SCH (07:47)
[2022-05-29] MEDS: Aspirin Enteric Coated 81 MG Tablet PO SCH (07:47)
[2022-05-29] MEDS: Isosorbide MONOnitrate (24 HR) 60 MG TAB.ER.24H PO SCH (07:47)
[2022-05-29] MEDS: cefTRIAXone 1,000 MG in 0.9 % Sodium Chloride Mini Bag 100 ML IVPB SCH (07:48)
[2022-05-29] MEDS: Finasteride 5 MG TABLET PO SCH (07:48)
[2022-05-29 09:01] LABS: Alanine Aminotransferase 18 Units/L (7-52); Albumin 3.9 g/dL (3.5-5.7); Albumin/Globulin Ratio 1.6 (1.1-2.2); Alkaline Phosphatase 76 Units/L (34-104); Aspartate Amino Transferase 17 Units/L (13-39); BUN/Creatinine Ratio 21 (6-26); Bilirubin,Total 0.5 mg/dL (0.3-1.0); Blood Urea Nitrogen 20 mg/dL (8-23); Calcium 8.8 mg/dL (8.6-10.3); Carbon Dioxide 33 mEq/L (23-29); Chloride 105 mEq/L (98-107); Chol/HDL Ratio 2.6 (0-4.9); Cholesterol 95 mg/dL (< 200); Globulin 2.5 g/dL (2.4-3.5); Glucose 114 mg/dL (70-105); HDL Cholesterol 37 mg/dL (40-59); LDL Cholesterol,Calculated 38 mg/dL (< 100); Osmolality,Calculated 295 (280-300); Potassium 4.4 mEq/L (3.5-5.1); Sodium 141 mEq/L (136-145); Total Protein 6.4 g/dL (6.4-8.9); Triglycerides 99 mg/dL (< 150); eGFR For African Americans > 60 (> 60); eGFR For Non-African Americans > 60 (> 60)
[2022-05-29] MEDS ORDERED: GADOBUTROL 30 MMOL/30 ML VIAL IVP ONE (12:36)
[2022-05-29] MEDS ORDERED: Azithromycin 500 MG VIAL ONE (17:03)
[2022-05-29] MEDS ORDERED: 0.9 % Sodium Chloride 250 ML ONE (17:05)
[2022-05-29] MEDS: Azithromycin 500 MG in 0.9 % Sodium Chloride 250 ML IVPB SCH (17:11)
[2022-05-29] MEDS ORDERED: WARFARIN PO ONE (18:00)
[2022-05-30 02:46] LABS: INR 2.3; Prothrombin Time 25.1 Seconds (9.4-12.1)
[2022-05-30] MEDS: Levothyroxine 25 MCG TABLET PO SCH (05:23)
[2022-05-30] MEDS: Budesonide/Formoterol 160/4.5 1 PUFF INH IH SCH ×2 (07:48→20:14)
[2022-05-30] MEDS: Aspirin Enteric Coated 81 MG Tablet PO SCH (07:50)
[2022-05-30] MEDS: Insulin LISPRO 300 UNITS/3 ML VIAL SUBQ SCH ×4 (07:50→21:54)
[2022-05-30] MEDS: Isosorbide MONOnitrate (24 HR) 60 MG TAB.ER.24H PO SCH (07:50)
[2022-05-30] MEDS: amLODIPine 5 MG TABLET PO SCH (07:50)
[2022-05-30] MEDS: Finasteride 5 MG TABLET PO SCH (07:50)
[2022-05-30] MEDS: cefTRIAXone 1,000 MG in 0.9 % Sodium Chloride Mini Bag 100 ML IVPB SCH (07:51)
[2022-05-30] MEDS: Metoprolol XL (24 HR) Succ 25 MG TAB.ER.24H PO SCH (11:43)
[2022-05-30 15:28] LABS: BUN/Creatinine Ratio 22 (6-26); Blood Urea Nitrogen 21 mg/dL (8-23); Calcium 8.6 mg/dL (8.6-10.3); Carbon Dioxide 31 mEq/L (23-29); Chloride 102 mEq/L (98-107); Glucose 243 mg/dL (70-105); Magnesium 1.7 mg/dL (1.6-2.6); Osmolality,Calculated 297 (280-300); Potassium 4.1 mEq/L (3.5-5.1); Sodium 138 mEq/L (136-145); eGFR For African Americans > 60 (> 60); eGFR For Non-African Americans > 60 (> 60)
[2022-05-30] MEDS: Azithromycin 500 MG in 0.9 % Sodium Chloride 250 ML IVPB SCH (17:42)
[2022-05-30] MEDS ORDERED: *HR* Warfarin 10 MG TABLET PO ONE (18:00)
[2022-05-30] MEDS ORDERED: *HR* Warfarin 1 MG TABLET PO ONE (18:00)
[2022-05-30] MEDS ORDERED: WARFARIN PO ONE (18:00)
[2022-05-31] MEDS: Levothyroxine 25 MCG TABLET PO SCH (05:15)
[2022-05-31 05:54] LABS: INR 2.3; Prothrombin Time 25.8 Seconds (9.4-12.1)
[2022-05-31 06:02] LABS: BUN/Creatinine Ratio 18 (6-26); Blood Urea Nitrogen 17 mg/dL (8-23); Calcium 9.1 mg/dL (8.6-10.3); Carbon Dioxide 32 mEq/L (23-29); Chloride 103 mEq/L (98-107); Glucose 142 mg/dL (70-105); Magnesium 1.8 mg/dL (1.6-2.6); Osmolality,Calculated 294 (280-300); Potassium 4.2 mEq/L (3.5-5.1); Sodium 140 mEq/L (136-145); eGFR For African Americans > 60 (> 60); eGFR For Non-African Americans > 60 (> 60)
[2022-05-31] MEDS: Budesonide/Formoterol 160/4.5 1 PUFF INH IH SCH ×2 (07:36→22:16)
[2022-05-31] MEDS: Metoprolol XL (24 HR) Succ 25 MG TAB.ER.24H PO SCH (08:47)
[2022-05-31] MEDS: amLODIPine 5 MG TABLET PO SCH (08:47)
[2022-05-31] MEDS: cefTRIAXone 1,000 MG in 0.9 % Sodium Chloride Mini Bag 100 ML IVPB SCH (08:48)
[2022-05-31] MEDS: Aspirin Enteric Coated 81 MG Tablet PO SCH (08:48)
[2022-05-31] MEDS: Finasteride 5 MG TABLET PO SCH (08:48)
[2022-05-31] MEDS: Insulin LISPRO 300 UNITS/3 ML VIAL SUBQ SCH ×4 (08:51→20:02)
[2022-05-31] MEDS: Isosorbide MONOnitrate (24 HR) 60 MG TAB.ER.24H PO SCH (08:55)
[2022-05-31] MEDS: Azithromycin 500 MG in 0.9 % Sodium Chloride 250 ML IVPB SCH (17:26)
[2022-05-31] MEDS ORDERED: WARFARIN PO ONE (18:00)
[2022-06-01] MEDS: Levothyroxine 25 MCG TABLET PO SCH (06:06)
[2022-06-01 06:15] LABS: INR 2.3; Prothrombin Time 25.3 Seconds (9.4-12.1)
[2022-06-01] MEDS: Budesonide/Formoterol 160/4.5 1 PUFF INH IH SCH (07:37)
[2022-06-01 07:58] VITALS: TEMP 97.9
[2022-06-01] MEDS: cefTRIAXone 1,000 MG in 0.9 % Sodium Chloride Mini Bag 100 ML IVPB SCH (08:02)
[2022-06-01] MEDS: Finasteride 5 MG TABLET PO SCH (08:07)
[2022-06-01] MEDS: amLODIPine 5 MG TABLET PO SCH (08:07)
[2022-06-01] MEDS: Isosorbide MONOnitrate (24 HR) 60 MG TAB.ER.24H PO SCH (08:07)
[2022-06-01] MEDS: Aspirin Enteric Coated 81 MG Tablet PO SCH (08:07)
[2022-06-01] MEDS: Metoprolol XL (24 HR) Succ 25 MG TAB.ER.24H PO SCH (08:07)
[2022-06-01] MEDS: Insulin LISPRO 300 UNITS/3 ML VIAL SUBQ SCH ×2 (08:08→12:22)
[2022-06-01 11:48] VITALS: BP 131/65; PULSE 78; O2SAT 95
[2022-06-01] MEDS ORDERED: WARFARIN PO ONE (18:00)
== END 2022-06-01 13:58 | disposition home or self-care (01) | DRG 149 ==
LOC: 3BNU 10:24 → EMEROOARM 10:24 → SUATTDRO 15:55 → 3BNU 17:20
PROVIDERS: ADMIT Family Medicine; ATTEND Registered Nurse